=== PATIENT | male | born 1965 | race Caucasian/White ===

== ENCOUNTER 2016-02-18 18:30 | Emergency (ER) | payer BC, OTHER ==
[~2016-02-18] VITALS: Ht 182.9 cm; Wt 105.2 kg
[~2016-02-18 18:30] MED LIST: B-CO1CAP3 PO; OXYC1TAB3 PO; PRT/20 PO
[2016-02-18 18:35] VITALS: Ht 182.9 cm; Wt 105.2 kg
[2016-02-18] MEDS ORDERED: MoRPHine SULFATE 4 MG/ML 1 ML CARP\\VIAL IV STA ×2 (18:59→21:43)
[2016-02-18] MEDS ORDERED: ONDANSETRON INJ 2 MG/ML 2 ML VIAL IV STA (18:59)
[2016-02-18 19:22] LABS: BASO % 0.5 %; BASO ABS # 0.03 K/uL (0-0.2); COMPLETE YES; EOS % 3.9 %; HEMATOCRIT 44.9 % (42-52); IG% 0.3 %; LYMPH % 24.4 %; LYMPH ABS # 1.56 K/uL (1.2-3.4); MEAN CELL VOLUME 86.5 fL (80-100); MEAN CORPUSCULAR HEMOGLOBIN 30.8 pg (25-34); MEAN CORPUSCULAR HGB CONC 35.6 g/dl (32-36); MEAN PLATELET VOLUME 9.7 fL (7.4-10.4); MONO % 10.2 %; NEUT % 60.7 %; PLATELET COUNT 192 K/uL (130-400); RED BLOOD COUNT 5.19 M/uL (4.7-6.1)
[2016-02-18 19:41] LABS: CALCIUM 8.4 mg/dl (8.5-10.1); CREATININE 1.1 mg/dl (0.60-1.40); POTASSIUM 3.9 mmol/L (3.5-5.1)
[2016-02-18] MEDS ORDERED: OPTIRAY 320 IV PRN (21:15)
[2016-02-18 21:57] LABS: URINE APPEARANCE CLOUDY (CLEAR); URINE BILIRUBIN NEG (NEG); URINE COLOR DK YELLOW; URINE NITRITE NEG (NEG); URINE SPECIFIC GRAVITY 1.029 (1.000-1.030); UROBILINOGEN NEG (NEG); ZZUR CULT IF INDIC CLEAN CATCH NO
[2016-02-18 22:00] LABS: MANUAL MICROSCOPIC REQUIRED? NO; REVIEW REQ? YES
--- NOTE | 2016-02-18 22:06 | DIAGNOSTIC IMAGING REPORT ---
CT ABD/PELVIS IV AND ORAL CONT CLINICAL HISTORY: Lower abdominal pain COMPARISON STUDY: 08/03/2015 TECHNIQUE: Following the IV administration of 116 mL of Optiray-320, CT scan of the abdomen and pelvis was performed from the lung bases to the proximal femurs. Images are reviewed in the axial, sagittal, and coronal planes. IV contrast was administered without complication. CT DOSE: 1020.23 mGy.cm FINDINGS: Lower chest: There are bibasal atelectatic changes. There is a small hiatal hernia. Liver: The contrast-enhanced liver is normal in size, contour, and attenuation. There is no intrahepatic biliary ductal dilatation. The hepatic veins and portal veins are patent. Gallbladder: Unremarkable. Spleen: Normal in size and attenuation. Pancreas: Unremarkable. Adrenal glands: Unremarkable. Kidneys: There is symmetric renal cortical enhancement. The kidneys are normal in size without hydronephrosis. Bowel: There are no transition zones indicate bowel obstruction. The appendix appears normal. There is no acute diverticulitis. There is small fat-containing right inguinal hernia. Peritoneum: There is no intraperitoneal free air or abdominal ascites. There are postsurgical changes are prior ventral hernia repair. There is a tiny fat-containing umbilical hernia Vasculature: The abdominal aorta is normal in course and caliber. Adenopathy: None. Pelvic viscera: There is mild prostatic enlargement. Skeletal structures: No destructive osseous lesions are seen. IMPRESSION: 1. No evidence of bowel obstruction. No evidence of free air 2. Normal appendix 3. No evidence of acute diverticulitis 4. Small hiatal hernia 5. Small fat-containing right inguinal hernia 6. Tiny fat-containing umbilical hernia 7. Postsurgical changes are prior ventral hernia repair 8. Mild enlargement of the prostate Electronically signed by: Gomez Brown M.D. 02/18/2016 10:04 PM Dictated Date/Time: 02/18/2016 10:00 PM
[2016-02-18] MEDS ORDERED: OXYCODONE IR HOME PACK PO ONE (22:30)
[2016-02-18 22:51] VITALS: BP 113/94; PULSE 68; TEMP 36.6; O2SAT 96
--- NOTE | 2016-02-18 23:15 | EMERGENCY ROOM VISIT NOTE ---
History Report prepared by Héctor: Toma Davis Under the Supervision of: Dr. Brandon Carrera M.D. First contact with patient: 18:51 Chief Complaint: ABDOMINAL PAIN Stated Complaint: PAIN IN LEFT SIDE OF ABDOMIN Nursing Triage Summary: Pt presents with left sided abd pain. Pt states , "I had surgery for a hernia in May. About two days after the surgery I sneezed and it never went away. I went and saw Dr. Lagunas on and I need to schedule another surgery. I was told I have a hiatel hernia and they think the mesh grew onto my bowel." History of Present Illness The patient is a 50 year old male who presents to the Emergency Room with complaints of worsening left sided abdominal pain that began this past May. He notes that the pain worsened significantly over the past week. He was unable to sleep last night due to his discomfort. His pain is worse with movement and defecation. The pain is sharp. He notes that when he eats even a few bites of food, he feels like he ate "two Thanksgiving dinners." He has been having bowel movements, but not as much as normal. He notes that he urinates frequently, but only small amounts of urine each time. The patient reports that he had hernia surgery this past May by Dr. Paiz. Two days after the surgery, he sneezed and he has been having pain since then. The patient notes that he has a lump to the periumbilical area. He does have an appointment scheduled with a surgeon tomorrow. Denies fevers, vomiting, or other complaints. Source of History: patient Onset: May 2015 Position: abdomen (left) Quality: sharp Timing: worsening Modifying Factors (Worsening): movement, defecation Associated Symptoms: + urinary symptoms (frequency), No SOB, No chest pain, No fevers, No vomiting Review of Systems See HPI for pertinent positives & negatives. A total of 10 systems reviewed and were otherwise negative. Past Medical & Surgical Medical Problems: (1) HTN (hypertension) (2) Sinusitis Surgical Problems: (1) H/O hernia repair Family History Diabetes mellitus Hypertension Social History Smoking Status: Current Some Day Smoker Alcohol Use: occasionally Drug Use: none Marital Status: Housing Status: lives with family Occupation Status: employed Current/Historical Medications Scheduled Aspirin (Aspirin Low Dose), 81 MG PO QAM Atorvastatin (Lipitor), 10 MG PO QAM Lisinopril (Prinivil), 5 MG PO QAM Pantoprazole (Protonix), 20 MG PO QAM Allergies Coded Allergies: No Known Allergies (Verified , `, 02/18/16) Physical Exam Vital Signs Date Time Temp Pulse Resp B/P Pulse Ox O2 Delivery O2 Flow Rate FiO2 02/18/16 22:51 36.6 68 18 113/94 96 02/18/16 22:49 68 18 113/94 96 Room Air 02/18/16 20:52 65 18 127/87 95 Room Air 02/18/16 19:56 74 18 120/80 96 Room Air 02/18/16 18:35 36.6 81 18 139/100 95 Room Air Physical Exam Constitutional: Vital signs reviewed. Eyes: Pupils are equal round reactive to light. Conjunctiva are noninjected. ENT: Pharynx is clear without erythema or exudate. Mucous membranes are moist. Neck supple without meningeal signs. Respiratory: Clear to auscultation bilaterally. Breath sounds are equal bilaterally. Cardiovascular: Regular rate and rhythm. No rubs or gallops. GI: Soft, nondistended. Epigastric and left periumbilical tenderness. Umbilical hernia without significant tenderness. Bowel sounds are present. Musculoskeletal: No peripheral edema. No CVA tenderness. Integumentary: No cyanosis. Neurological: The patient is awake and alert. No focal deficits. Psychiatric: Normal affect. Medical Decision & Procedures ER Provider Diagnostic Interpretation: CT results as stated below per my review and radiologist interpretation. CT ABD/PELVIS IV AND ORAL CONT CLINICAL HISTORY: Lower abdominal pain COMPARISON STUDY: 08/03/2015 TECHNIQUE: Following the IV administration of 116 mL of Optiray-320, CT scan of the abdomen and pelvis was performed from the lung bases to the proximal femurs. Images are reviewed in the axial, sagittal, and coronal planes. IV contrast was administered without complication. CT DOSE: 1020.23 mGy.cm FINDINGS: Lower chest: There are bibasal atelectatic changes. There is a small hiatal hernia. Liver: The contrast-enhanced liver is normal in size, contour, and attenuation. There is no intrahepatic biliary ductal dilatation. The hepatic veins and portal veins are patent. Gallbladder: Unremarkable. Spleen: Normal in size and attenuation. Pancreas: Unremarkable. Adrenal glands: Unremarkable. Kidneys: There is symmetric renal cortical enhancement. The kidneys are normal in size without hydronephrosis. Bowel: There are no transition zones indicate bowel obstruction. The appendix appears normal. There is no acute diverticulitis. There is small fat-containing right inguinal hernia. Peritoneum: There is no intraperitoneal free air or abdominal ascites. There are postsurgical changes are prior ventral hernia repair. There is a tiny fat-containing umbilical hernia Vasculature: The abdominal aorta is normal in course and caliber. Adenopathy: None. Pelvic viscera: There is mild prostatic enlargement. Skeletal structures: No destructive osseous lesions are seen. IMPRESSION: 1. No evidence of bowel obstruction. No evidence of free air 2. Normal appendix 3. No evidence of acute diverticulitis 4. Small hiatal hernia 5. Small fat-containing right inguinal hernia 6. Tiny fat-containing umbilical hernia 7. Postsurgical changes are prior ventral hernia repair 8. Mild enlargement of the prostate Electronically signed by: Gomez Brown M.D. 02/18/2016 10:04 PM Dictated Date/Time: 02/18/2016 10:00 PM Laboratory Results 02/18/16 19:10 Red Blood Count 5.19, Mean Corpuscular Volume 86.5, Mean Corpuscular Hemoglobin 30.8, Mean Corpuscular Hemoglobin Concent 35.6, Mean Platelet Volume 9.7, Neutrophils (%) (Auto) 60.7, Lymphocytes (%) (Auto) 24.4, Monocytes (%) (Auto) 10.2, Eosinophils (%) (Auto) 3.9, Basophils (%) (Auto) 0.5, Neutrophils # (Auto ) 3.89, Lymphocytes # (Auto) 1.56, Monocytes # (Auto) 0.65, Eosinophils # (Auto ) 0.25, Basophils # (Auto) 0.03 02/18/16 19:10 Test 02/18/16 00:00 02/18/16 19:10 Urine Color DK YELLOW Urine Appearance CLOUDY (CLEAR) Urine pH 5.0 (4.5-7.5) Urine Specific [place] 1.029 (1.000-1.030) Urine Protein NEG (NEG) Urine Glucose (UA) NEG (NEG) Urine Ketones TRACE (NEG) Urine Occult Blood NEG (NEG) Urine Nitrite NEG (NEG) Urine Bilirubin NEG (NEG) Urine Urobilinogen NEG (NEG) Urine Leukocyte Esterase NEG (NEG) Urine WBC (Auto) 1-5 /hpf (0-5) Urine RBC (Auto) 0-4 /hpf (0-4) Urine Hyaline Casts (Auto) 1-5 /lpf (0-5) Urine Epithelial Cells (Auto) 5-10 /lpf (0-5) Urine Bacteria (Auto) NEG (NEG) Urine Crystals CALCIUM OXALATE (NONE White Blood Count 6.40 K/uL (4.8-10.8) Red Blood Count 5.19 M/uL (4.7-6.1) Hemoglobin 16.0 g/dL (14.0-18.0) Hematocrit 44.9 % (42-52) Mean Corpuscular Volume 86.5 fL (80-100) Mean Corpuscular Hemoglobin 30.8 pg (25-34) Mean Corpuscular Hemoglobin Concent 35.6 g/dl (32-36) Platelet Count 192 K/uL (130-400) Mean Platelet Volume 9.7 fL (7.4-10.4) Neutrophils (%) (Auto) 60.7 % Lymphocytes (%) (Auto) 24.4 % Monocytes (%) (Auto) 10.2 % Eosinophils (%) (Auto) 3.9 % Basophils (%) (Auto) 0.5 % Neutrophils # (Auto) 3.89 K/uL (1.4-6.5) Lymphocytes # (Auto) 1.56 K/uL (1.2-3.4) Monocytes # (Auto) 0.65 K/uL (0.11-0.59) Eosinophils # (Auto) 0.25 K/uL (0-0.5) Basophils # (Auto) 0.03 K/uL (0-0.2) RDW Standard Deviation 41.3 fL (36.4-46.3) RDW Coefficient of Variation 13.0 % (11.5-14.5) Immature Granulocyte % (Auto) 0.3 % Immature Granulocyte # (Auto) 0.02 K/uL (0.00-0.02) Anion Gap 9.0 mmol/L (3-11) Est Creatinine Clear Calc Drug Dose 100.7 ml/min Estimated GFR () 90.2 Estimated GFR (Non- 77.9 BUN/Creatinine Ratio 16.0 (10-20) Calcium Level 8.4 mg/dl (8.5-10.1) Total Bilirubin 0.3 mg/dl (0.2-1) Aspartate Amino Transf (AST/SGOT) 22 U/L (15-37) Alanine Aminotransferase (ALT/SGPT) 43 U/L (12-78) Alkaline Phosphatase 126 U/L (45-117) Total Protein 7.3 gm/dl (6.4-8.2) Albumin 3.7 gm/dl (3.4-5.0) Globulin 3.6 gm/dl (2.5-4.0) Albumin/Globulin Ratio 1.0 (0.9-2) Lipase 110 U/L (73-393) Laboratory results as reviewed by me. Medications Administered Medications (Trade) Dose Ordered Sig/Je Route Start Time Stop Time Status Last Admin Dose Admin Morphine Sulfate (MoRPHine SULFATE INJ) 4 mg ONE STAT IV 02/18/16 18:59 02/18/16 19:01 DC 02/18/16 19:35 4 MG Ondansetron HCl (Zofran Inj) 4 mg NOW STAT IV 02/18/16 18:59 02/18/16 19:01 DC 02/18/16 19:36 4 MG Morphine Sulfate (MoRPHine SULFATE INJ) 4 mg NOW STAT IV 02/18/16 21:43 02/18/16 21:44 DC 02/18/16 22:09 4 MG Oxycodone HCl (Roxicodone Immediate Rel 5MG Home Pack) 1 homepack UD ONCE PO 02/18/16 22:30 02/18/16 22:31 DC 02/18/16 22:34 1 HOMEPACK ECG Indication: abdominal pain Rate (beats per minute): 71 Rhythm: normal sinus Findings: Q waves (Inferior), no ectopy Comparison ECG Date: August 2015 Change: no significant change ED Course 1852: The patient was evaluated in room B3. A complete history and physical exam was performed. 1858: Ordered Zofran Inj 4 mg IV, Morphine Sulfate 4 mg IV. 2109: I reassessed the patient and discussed test results with him. We are waiting on the CT scan results. 2139: I reassessed the patient. He was complaining of more pain. 2142: Ordered Morphine Sulfate 4 mg IV. 2218: I reassessed the patient. He was feeling better. I talked to him about test results. He will follow up with the surgeon tomorrow. The patient will be discharged home. 2229: Ordered Oxycodone HCl 1 homepack PO. Medical Decision This is a 50-year-old male who presents with left-sided abdominal pain. Differential diagnosis includes diverticulitis, kidney stone, irritable bowel syndrome, hernia, UTI I did perform a limited focused review of portions of the patient's old chart on the electronic medical record. The patient has had no recent pertinent visits to this hospital. I did evaluate the patient as noted above. IV access was established. The patient was placed on a continuous manager risk. I did order and personally review the patient's urinalysis as described above. I did order and review the patient's blood work as noted in the electronic medical record. His white blood cell count is not elevated. LFTs are unremarkable. I did order a CT of the abdomen and pelvis. I did review the images myself as well as the radiology report as described above. There is no evidence of acute intra- abdominal process. I did treat patient with IV morphine and Zofran. I did discuss the test results with the patient. He is feeling better at this time. He does have an appointment tomorrow to see the surgeon. He was therefore discharged with a OxyIR home pack and given precautions regarding this medication. Impression Primary Impression: Left sided abdominal pain Additional Impression: Umbilical hernia Scribe Attestation The scribe's documentation has been prepared under my direct and personally reviewed by me in its entirety. I confirm that the note above accurately reflects all work, treatment, procedures, and medical decision making performed by me. Departure Information Dispostion Home / Self-Care Referrals Rashid Baxter M.D. (PCP) Patient Instructions A Signature Page, ED Abd Pain Unkn Cause Male Additional Instructions You have been examined and treated today on an emergency basis only. This is not a substitute for, or an effort to provide, complete comprehensive medical care. It is impossible to recognize and treat all injuries or illnesses in a single emergency department visit. It is therefore important that you follow up closely with your surgeon tomorrow. Return for worsening symptoms or if you develop fever, vomiting, or any other concerning symptoms.
[2016-07-17] MEDS ORDERED: ASPI1TAB48 PO (05:34)
[2016-07-17] MEDS ORDERED: ATOR10TA88 PO (14:34)
[2016-07-17] MEDS ORDERED: LISI5TAB PO (17:33)
== END 2016-02-18 22:51 | disposition home or self-care (01) ==
LOC: C.EDB 18:34
DX: K42.9 Umbilical hernia without obstruction or gangrene (principal); I10 Essential (primary) hypertension; F17.200 Nicotine dependence, unspecified, uncomplicated; Z86.19 Personal history of other infectious and parasitic diseases; Z98.890 Other specified postprocedural states; Z79.82 Long term (current) use of aspirin; Z79.899 Other long term (current) drug therapy; Z83.3 Family history of diabetes mellitus; Z82.49 Family history of ischemic heart disease and other diseases of the circulatory system

== ENCOUNTER 2016-02-22 11:40 | Observation (INO) | payer OTHER ==
[2016-02-19 16:05] VITALS: BMI 31.0
[2016-02-22] VITALS (7 sets, daily range): BP systolic 112–134; BP diastolic 75–89; PULSE 74–89; TEMP 36.2–36.6; O2SAT 93–97; Ht 182.9 cm; Wt 104.5 kg
[~2016-02-22] VITALS: Ht 182.9 cm; Wt 104.5 kg
[~2016-02-22 11:40] MED LIST changes: -B-CO1CAP3 PO; +CEFAZOLIN 2000 MG/60 ML D5W IV SCH; +HEPARIN SOD 5000 UNIT/0.5 ML CARP SQ SCH; +LACTATED RINGER'S 1000ML 1,000 ML IV SCH; -OXYC1TAB3 PO
[2016-02-22] MEDS ORDERED: FENTANYL CITRATE INJ 50 MCG/1 ML 2 ML VIAL ONE ×3 (13:48→15:29)
[2016-02-22] MEDS ORDERED: MIDAZOLAM HCL 1 MG/ML 2ML VIAL ONE (13:49)
--- NOTE | 2016-02-22 14:16 | History & Physical Bridge Note ---
H&P Re-Evaluation Bridge Note: I have examined the patient, reviewed the History & Physical and in the interval since the performance of the History & Physical I have noted the following changes of clinical significance: No changes noted
[2016-02-22] MEDS ORDERED: PROPOFOL IV EMULSION 10 MG/ML 20 ML VIAL IV ONE (15:08)
[2016-02-22] MEDS ORDERED: ROCURONIUM BROMIDE 10 MG/ML 5 ML VIAL ONE ×2 (15:09→15:46)
[2016-02-22] MEDS ORDERED: NEOSTIGMINE METHYLSULFATE 5 MG/5 ML SYR ONE (15:09)
[2016-02-22] MEDS ORDERED: LIDOCAINE HCL 2% 2 ML VIAL (20MG/ML) ONE (15:09)
[2016-02-22] MEDS ORDERED: GLYCOPYRROLATE INJ 0.2 MG/ML VIAL ONE (15:09)
[2016-02-22] MEDS ORDERED: KETOROLAC TROMETHAMINE 30 MG/ML VIAL IV. PRN (15:15)
[2016-02-22] MEDS ORDERED: ONDANSETRON INJ 2 MG/ML 2 ML VIAL IV PRN ×3 (15:15→17:15)
[2016-02-22] MEDS ORDERED: ATROPINE SULFATE 0.1 MG/ML 5ML SYR IV PRN (15:15)
[2016-02-22] MEDS ORDERED: LABETALOL HCL IV 5 MG/ML 20ML IV PRN (15:15)
[2016-02-22] MEDS ORDERED: DEXAMETHASONE SOD INJ 4 MG/ML VIAL ONE (15:31)
[2016-02-22] MEDS ORDERED: ONDANSETRON INJ 2 MG/ML 2 ML VIAL ONE (15:31)
[2016-02-22] MEDS ORDERED: HYDROmorphone INJ 2 MG/ML SYR/VIAL ONE (15:35)
[2016-02-22] MEDS ORDERED: BUPIVACAINE/EPINEPHRINE 0.5% MPF 1:200,000 30 ML VIAL INJ ONE (16:05)
--- NOTE | 2016-02-22 16:19 | [facility] Operative Report ---
Operative Report Operative Date Feb 22, 2016. Pre-Operative Diagnosis Abdominal pain, adhesions,hiatal hernia and umbilical granuloma Post-Operative Diagnosis adhesions. hiatal hernia. umbilical abcess Procedure(s) Performed diagnostic laparoscopy. enterolysis. repair of hiatal hernia. gastropexy. drainage soft tissue abcess. Surgeon Dr. Angie Lagunas [employer] Surgeon(s) José Miguel Blancas PA-C Estimated Blood Loss 20ml Findings adhesion to undersurface of umbilical mesh. moderate hiatal hernia. soft tissue abcess at umbilicus Specimens #1. culture and sensitivity, with gram stain, of abdominal wall fluid (sent routine) Anesthesia GET Complication(s) None Disposition Recovery Room / PACU I attest to the content of the Intraoperative Record and any orders documented therein. Any exceptions are noted below.
[2016-02-22] MEDS ORDERED: LACTATED RINGER'S 1000ML 1,000 ML IV SCH (16:20)
[2016-02-22] MEDS ORDERED: AMOX875T PO (16:22)
[2016-02-22] MEDS ORDERED: OXYC-57 PO (16:22)
--- NOTE | 2016-02-22 16:27 | Discharge Instructions ---
Discharge Instructions Visit Reason for Visit: Abdominal Pain, Hiatal Hernia Discharge Discharge Diagnosis / Problem: Repair of hernia, lysis of adhesions Discharge Goals Goal(s): Decrease discomfort Activity Recommendations Activity Limitations: per Instructions/Follow-up section Lifting Limitations: no more than 10 pounds Shower/Bathe: tomorrow Driving or Machine Use: resume 3 days after discharge Anesthesia . Post Anesthesia Instructions: If you have had General Anesthesia or IV Sedation: * Do not drive today. * Resume driving when surgeon permits. * Do not make important decisions or sign legal documents today. * Call surgeon for: 1. Temperature elevations greater than 101 degrees F. 2. Uncontrollable pain. 3. Excessive bleeding. 4. Persistent nausea and vomiting. 5. Medication intolerance (nausea, vomiting or rash). * For nausea and vomiting use only clear liquids such as: tea, soda, bouillon until nausea subsides, then gradually increase diet as tolerated. * If you have any concerns or questions, call your surgeon's office. If physician is unavailable and it is an emergency, call 911 or go to the nearest emergency room. . Instructions / Follow-Up Instructions / Follow-Up Call to schedule appointment in [address] Lagunas, [phone] Diet Recommendations Recommended Home Diet: special diet Additional Diet Information: soft diet as discussed Procedures Procedures Performed: Diagnostic Laparoscopy, Entrolysis, Laparoscopic Repair Hiatal Hernia, drainage of abscess cavity and gastropexy. Pending Studies Studies pending at discharge: no Medical Emergencies . Who to Call and When: Medical Emergencies: If at any time you feel your situation is an emergency, please call 911 immediately. . Non-Emergent Contact Non-Emergency issues call your: Surgeon Call Non-Emergent contact if: you have a fever, temperature is above 101.5, your pain is not controlled, wound has increased drainage, wound has increased redness, wound has increased pain . . "Provider Documentation" section prepared by Norman Blancas.
[2016-02-22] MEDS ORDERED: OXYCODONE/ACETAMINOPHEN 5-325 TAB PO PRN (16:30)
[2016-02-22] MEDS ORDERED: MoRPHine SULFATE 2 MG/ML CARP IV PRN (16:30)
[2016-02-22] MEDS: FENTANYL CITRATE INJ 50 MCG/1 ML 2 ML VIAL IV PRN ×8 (16:40→17:15)
[2016-02-22] MEDS ORDERED: IBUPROFEN 600 MG TAB PO PRN (17:15)
[2016-02-22] MEDS ORDERED: HYDROmorphone INJ 1 MG/ML SYR IV PRN (17:15)
[2016-02-22] MEDS ORDERED: HYDROmorphone INJ 2 MG/ML SYR/VIAL IV PRN (17:15)
[2016-02-22] MEDS ORDERED: HYDROmorphone INJ 0.5 MG/0.5 ML SYR IV PRN (17:15)
[2016-02-22] MEDS ORDERED: HYDROCODONE/ACETAMOPHEN 5/325MG TAB PO PRN ×2 (17:15)
--- NOTE | 2016-02-22 17:27 | Anesthesiology Progress Note ---
Anesthesia Post Op Note Date & Time Feb 22, 2016 at 17:26 Vital Signs Pain Intensity: 8 Vital Signs Past 12 Hours Date Time Temp Pulse Resp B/P Pulse Ox O2 Delivery O2 Flow Rate FiO2 02/22/16 17:10 86 12 103/73 96 Mask 4 02/22/16 17:00 80 10 117/64 96 Mask 4 02/22/16 16:50 81 10 103/74 99 Mask 10 02/22/16 16:40 80 12 109/77 98 Mask 10 02/22/16 16:30 89 12 115/74 98 Mask 10 02/22/16 16:20 36.3 92 12 125/74 97 Mask 10 02/22/16 12:12 36.6 77 18 120/75 97 Room Air Notes Mental Status: alert / awake / arousable, participated in evaluation Pt Amnestic to Procedure: Yes Nausea / Vomiting: adequately controlled Pain: adequately controlled Airway Patency, RR, SpO2: stable & adequate BP & HR: stable & adequate Hydration State: stable & adequate Anesthetic Complications: no major complications apparent
[2016-02-22] MEDS: LACTATED RINGER'S 1000ML 1,000 ML IV SCH (18:27)
[2016-02-22] MEDS: CEFAZOLIN IV 1,000 MG in DEXTROSE 5% 50ML 50 ML IV SCH (22:07)
[2016-02-23] MEDS: LACTATED RINGER'S 1000ML 1,000 ML IV SCH ×3 (01:44→17:08)
[2016-02-23] MEDS: KETOROLAC TROMETHAMINE 15 MG/ML VIAL IV PRN ×2 (01:44→07:56)
--- NOTE | 2016-02-23 02:47 | OPERATIVE REPORT ---
DATE OF OPERATION: 02/22/2016 PREOPERATIVE DIAGNOSES: Abdominal pain, symptomatic umbilical granuloma and symptomatic hiatal hernia. POSTOPERATIVE DIAGNOSES: 1. Adhesions to the undersurface of his prior mesh. 2. Moderate sized hiatal hernia with gastric incarceration. 3. Soft tissue abscess at the umbilicus, suspect sterile abscess. PROCEDURES: Diagnostic laparoscopy, enterolysis, repair of hiatal hernia, posterior gastropexy, drainage of abdominal soft tissue abscess cavity. SURGEON: Ulysses Lagunas DO PIECE HAND: Norman Blancas PA-C ESTIMATED BLOOD LOSS: 30 mL. COMPLICATIONS: No immediate. ANESTHESIA: General. The patient tolerated procedure well. OPERATIVE NOTE: After informed consent was obtained, the patient was taken to the operating suite and placed in supine position. After successful intubation, the abdomen was shaved and sterilely prepped and draped in usual fashion. An upper midline abdominal incision was made with an 11 blade scalpel and carried down through the soft tissue using electrocautery. The anterior rectus fascia was opened using electrocautery and two #0 Vicryl stay sutures were placed. Peritoneum was entered using blunt finger penetration. A finger sweep was performed. A 12 mm Johnson trocar was placed and the abdomen was insufflated to 20 mmHg. Laparoscope was inserted. We looked down at the area of his pain near his umbilicus. We noted a fair amount of the adhesions involving omentum and small bowel to the undersurface of the mesh. We placed a left upper quadrant 5 mm trocar, an epigastric 12 mm trocar, a right upper quadrant 5 mm trocar and a right flank 12 mm trocar. We were able to use a Harmonic scalpel to take the adhesions down from the undersurface of the mesh using traction, counter traction and Harmonic scalpel. Once we had all the adhesions down, we looked around the lower abdomen. We saw no other source of his pain in that area. Our focused then turned to his known hiatal hernia. We placed him in reverse Trendelenburg position. We used a fan liver retractor to help expose the undersurface of the diaphragm. Once we did this, we were able to manually reduce the stomach using graspers. I began along the lesser curvature. I took down the gastrohepatic ligament and using a Harmonic scalpel divided the pars flaccida and then followed the right caitlin up onto the anterior surface of the diaphragm. I continued this around anteriorly and down over onto the left caitlin of the diaphragm. Once we took down this peritoneal sac the stomach then was able to stay reduced into the abdominal cavity without any tension. We were able to clearly identify the right and left crura as well as the esophagus. Once we had this all delineated and the hernia sac down, we then used an EndoStitch device with 0 silk to close the defect in a simple interrupted fashion. Once we had this completely closed, we did insert a grasper between the stomach and esophagus to ensure that our repair was not too tight. After doing this, I then also used an 0 silk with an EndoStitch to pex the medial side of the stomach to the right caitlin of the diaphragm. In case the crural stitch became undone or broken this would help prevent re-incarceration of the stomach. At the end of this part of the procedure, there was adequate hemostasis. No other abnormalities were identified. We looked around the abdomen, removed all the trocars. Next, we opened what we thought was a suture granuloma at his umbilicus near his old hernia repair. As soon as we opened the skin, we probably got 10-15 mL of pure white purulent fluid. It did not have a foul odor. The skin was not erythematous and did not have an inflammatory response; therefore I suspected the sterile abscess. We used electrocautery to remove the abscess cavity itself. We then thoroughly irrigated the wound. Prior to irrigating, we did send some for culture and Gram stain. We then closed this with 3-0 Vicryl and 4-0 Monocryl. The fascia of the camera port was closed using 0 Vicryl in a [id number] fashion. All the other incisions were irrigated and closed using 4-0 Monocryl. Marcaine was injected around them for postoperative analgesia and skin glue used as dressings. The patient was awakened, extubated and transferred to recovery in stable condition. I attest to the content of the Intraoperative Record and any orders documented therein. Any exceptions are noted below. [place]
[2016-02-23 04:00] VITALS: BP 131/89; PULSE 82; TEMP 36.5; O2SAT 95
[2016-02-23] MEDS: CEFAZOLIN IV 1,000 MG in DEXTROSE 5% 50ML 50 ML IV SCH ×2 (05:25→13:19)
[2016-02-23 05:40] LABS: MEAN CELL VOLUME 85.5 fL (80-100); MEAN CORPUSCULAR HEMOGLOBIN 29.7 pg (25-34); MEAN CORPUSCULAR HGB CONC 34.8 g/dl (32-36); MEAN PLATELET VOLUME 9.4 fL (7.4-10.4); PLATELET COUNT 200 K/uL (130-400); RED BLOOD COUNT 4.91 M/uL (4.7-6.1); WHITE BLOOD COUNT 8.84 K/uL (4.8-10.8)
[2016-02-23 05:51] LABS: PROTHROMBIN TIME (PATIENT) 10.7 SECONDS (9.0-12.0)
[2016-02-23 06:05] LABS: CREATININE 1.2 mg/dl (0.60-1.40)
[2016-02-23 07:09] VITALS: BP 137/91; PULSE 77; TEMP 36.6; O2SAT 96
[2016-02-23] MEDS ORDERED: ENOXAPARIN 40 MG/0.4 ML SYR SQ SCH (09:00)
--- NOTE | 2016-02-23 10:40 | Surgery Progress Note ---
Surgery Progress Note Date of Service Feb 23, 2016. Subjective Post OP Day: 1 still with mid abdominal pain requiring IV analgesics, tolerating diet Objective Vital Signs: Date Time Temp Pulse Resp B/P Pulse Ox O2 Delivery O2 Flow Rate FiO2 02/23/16 08:22 Room Air 02/23/16 07:09 36.6 77 16 137/91 96 Room Air 02/23/16 04:00 36.5 82 16 131/89 95 Room Air 02/22/16 23:21 Room Air 02/22/16 22:55 36.5 84 18 125/81 93 Room Air 02/22/16 20:50 36.4 89 16 134/89 94 Room Air 02/22/16 19:50 36.4 75 16 126/85 96 Nasal Cannula 2.0 02/22/16 18:49 77 112/77 02/22/16 18:21 77 18 124/81 97 Room Air 02/22/16 17:50 94 Nasal Cannula 2.0 02/22/16 17:50 36.2 74 17 119/80 94 Nasal Cannula 2.0 02/22/16 17:50 94 Nasal Cannula 2.0 02/22/16 17:30 82 16 120/74 97 Mask 4 02/22/16 17:20 74 12 101/62 97 Mask 4 02/22/16 17:10 86 12 103/73 96 Mask 4 02/22/16 17:00 80 10 117/64 96 Mask 4 02/22/16 16:50 81 10 103/74 99 Mask 10 02/22/16 16:40 80 12 109/77 98 Mask 10 02/22/16 16:30 89 12 115/74 98 Mask 10 02/22/16 16:20 36.3 92 12 125/74 97 Mask 10 02/22/16 12:12 36.6 77 18 120/75 97 Room Air Abdomen: non distended, soft Incision(s): clean, dry Laboratory Results: Results Past 24 Hours Test 02/23/16 05:09 Range/Units White Blood Count 8.84 4.8-10.8 K/uL Red Blood Count 4.91 4.7-6.1 M/uL Hemoglobin 14.6 14.0-18.0 g/dL Hematocrit 42.0 42-52 % Mean Corpuscular Volume 85.5 80-100 fL Mean Corpuscular Hemoglobin 29.7 25-34 pg Mean Corpuscular Hemoglobin Concent 34.8 32-36 g/dl RDW Standard Deviation 40.0 36.4-46.3 fL RDW Coefficient of Variation 12.8 11.5-14.5 % Platelet Count 200 130-400 K/uL Mean Platelet Volume 9.4 7.4-10.4 fL Prothrombin Time 10.7 9.0-12.0 SECONDS Prothromb Time International Ratio 1.0 0.9-1.1 Activated Partial Thromboplast Time 26.4 21.0-31.0 SECONDS Partial Thromboplastin Ratio 1.0 Creatinine 1.20 0.60-1.40 mg/dl Est Creatinine Clear Calc Drug Dose 92.1 ml/min Estimated GFR () 81.2 Estimated GFR (Non- 70.1 Microbiology Results 02/22/16 Gram Stain - Final, Resulted 02/22/16 Bacterial Culture, Resulted Pending Assessment & Plan s/p laparoscopic hiatal hernia repair, lysis of adhesions transition to po analgesics as hakeem ambulate may need to stay overnight as above..pt's pain controlled at moment hakeem diet ok for d/c. instructions given
[2016-02-23 14:09] VITALS: BP 137/91; PULSE 77; TEMP 36.6; O2SAT 96
[2016-02-23 14:57] VITALS: BP 144/93; PULSE 77; TEMP 36.9; O2SAT 96
--- NOTE | 2016-02-24 10:58 | Anesthesiology Progress Note ---
Anesthesia Post Op Note Date & Time Feb 24, 2016 at 10:57 Vital Signs Pain Intensity: 4.0 Notes Mental Status: alert / awake / arousable, participated in evaluation Pt Amnestic to Procedure: Yes Nausea / Vomiting: adequately controlled Pain: adequately controlled Airway Patency, RR, SpO2: stable & adequate BP & HR: stable & adequate Hydration State: stable & adequate Anesthetic Complications: no major complications apparent
--- NOTE | 2016-02-25 15:09 | DISCHARGE SUMMARY ---
PRIMARY DISCHARGE DIAGNOSES: 1. Hiatal hernia. 2. Abdominal adhesions to previous mesh. 3. Sterile umbilical abscess. SECONDARY DISCHARGE DIAGNOSES: 1. Hypertension. 2. High cholesterol. PROCEDURE PERFORMED: Diagnostic laparoscopy with enterolysis, repair of hiatal hernia and gastropexy and drainage of umbilical granuloma/abscess. HOSPITAL COURSE: The patient is a 50-year-old male with abdominal pain, previous ventral hernia repair and hiatal hernia, admitted through same day for diagnostic laparoscopy. He did have some adhesions to the previously placed mesh which were taken down. We also repaired hiatal hernia with laparoscopic sutures and performed gastropexy. He had a small area at the umbilicus that appeared as a granuloma, but when opened drained some thick white fluid. Cultures taken of this fluid has showed no growth. He continued to require IV analgesics in same day surgery and was therefore admitted for overnight observation and continued IV therapy. By postoperative day 1, he was able to tolerate diet and oral analgesics. His blood pressure remained stable. His incisions were dry. He was stable for discharge. DISCHARGE INSTRUCTIONS: Discharge home. Follow up with Dr. Lagunas in 2 weeks. DISCHARGE MEDICATIONS: Augmentin 875 mg p.o. b.i.d. x7 which was prescribed before the final cultures were returned. Percocet 1-2 tablets every 4 hours as needed. Resume home medications Aspirin 81 mg daily, Lipitor 10 mg daily, Prinivil 5 mg daily, Protonix 20 mg daily. MTDD
[2016-07-17] MEDS ORDERED: ASPI1TAB48 PO (05:34)
[2016-07-17] MEDS ORDERED: ATOR10TA88 PO (14:34)
[2016-07-17] MEDS ORDERED: LISI5TAB PO (17:33)
== END 2016-02-23 17:30 | disposition home or self-care (01) ==
LOC: ENRESERVDT → ENRESERVTM → C.ACU 11:40 → C.MSN 17:12
PROVIDERS: ADMIT Surgery; ATTEND Surgery
DX: K44.9 Diaphragmatic hernia without obstruction or gangrene (principal); J84.10 Pulmonary fibrosis, unspecified; R10.9 Unspecified abdominal pain; L92.9 Granulomatous disorder of the skin and subcutaneous tissue, unspecified; K66.0 Peritoneal adhesions (postprocedural) (postinfection); I10 Essential (primary) hypertension; E78.00 Pure hypercholesterolemia, unspecified

== ENCOUNTER → 2016-03-24 | Outpatient (CLI) | payer OTHER ==
[~2016-03-24] MED LIST changes: +ASPI1TAB48 PO; +ATOR10TA88 PO; -CEFAZOLIN 2000 MG/60 ML D5W IV SCH; +CEPH500C2 PO; +CHOL1000 PO; -HEPARIN SOD 5000 UNIT/0.5 ML CARP SQ SCH; -LACTATED RINGER'S 1000ML 1,000 ML IV SCH; +LISI5TAB PO; +LSN10 PO; +MULT-506 PO; +OXYC-57 PO; +SULF800T23 PO
[2016-03-24 18:16] LABS: BASO % 0.3 %; BASO ABS # 0.02 K/uL (0-0.2); COMPLETE YES; EOS % 1.7 %; HEMATOCRIT 45.4 % (42-52); IG% 0.1 %; LYMPH % 20.5 %; LYMPH ABS # 1.57 K/uL (1.2-3.4); MEAN CELL VOLUME 86.5 fL (80-100); MEAN CORPUSCULAR HEMOGLOBIN 30.3 pg (25-34); MEAN PLATELET VOLUME 10.2 fL (7.4-10.4); MONO % 8.5 %; NEUT % 68.9 %; PLATELET COUNT 245 K/uL (130-400); RED BLOOD COUNT 5.25 M/uL (4.7-6.1); WHITE BLOOD COUNT 7.66 K/uL (4.8-10.8)
[2016-03-24 19:04] LABS: ALT/SGPT 44 U/L (12-78); BLOOD UREA NITROGEN 17 mg/dl (7-18); BUN/CREATININE RATIO 15.4 (10-20); CALCIUM 9.1 mg/dl (8.5-10.1); CARBON DIOXIDE 21 mmol/L (21-32); CHLORIDE 109 mmol/L (98-107); CHOLESTEROL 154 mg/dl (0-200); GLUCOSE 78 mg/dl (70-99); POTASSIUM 4.2 mmol/L (3.5-5.1); SODIUM 141 mmol/L (136-145); TRIGLYCERIDES 181 mg/dl (0-150); VERY LOW DENSITY LIPOPROT CALC 36 mg/dl
[2016-03-24 19:14] LABS: ALB/GLOB RATIO 1.1 (0.9-2); ALKALINE PHOSPHATASE 137 U/L (45-117); AST/SGOT 27 U/L (15-37); CHOLESTEROL/HDL RATIO 4.1; HDL CHOLESTEROL 38 mg/dl; LDL CHOLESTEROL CALCULATED 80 mg/dl
== END | disposition home or self-care (01) ==
LOC: C.LABPVFM 15:04
PROVIDERS: ATTEND Family Medicine
DX: F52.0 Hypoactive sexual desire disorder (principal); R53.83 Other fatigue; E78.5 Hyperlipidemia, unspecified; Z12.5 Encounter for screening for malignant neoplasm of prostate

== ENCOUNTER 2016-03-29 00:49 | Emergency (ER) | payer OTHER ==
[~2016-03-29] VITALS: Ht 182.9 cm; Wt 104.3 kg
[~2016-03-29 00:49] MED LIST changes: -ASPI1TAB48 PO; -ATOR10TA88 PO; -CEPH500C2 PO; -CHOL1000 PO; -LISI5TAB PO; -LSN10 PO; -MULT-506 PO; -SULF800T23 PO
[2016-03-29 01:00] VITALS: TEMP 36.7; Ht 182.9 cm; Wt 104.3 kg
[2016-03-29] MEDS ORDERED: ONDANSETRON INJ 2 MG/ML 2 ML VIAL IV STA (01:22)
[2016-03-29] MEDS ORDERED: MoRPHine SULFATE 10 MG/ML CARP/VIAL IV STA (01:22)
[2016-03-29] MEDS ORDERED: SODIUM CHLORIDE 0.9% 1000ML 1,000 ML IV ONE (01:30)
[2016-03-29 02:11] LABS: BASO % 0.3 %; BASO ABS # 0.02 K/uL (0-0.2); COMPLETE YES; EOS % 2.9 %; HEMATOCRIT 42.9 % (42-52); IG% 0.3 %; LYMPH % 30.7 %; LYMPH ABS # 1.83 K/uL (1.2-3.4); MEAN CELL VOLUME 86.5 fL (80-100); MEAN CORPUSCULAR HEMOGLOBIN 30.6 pg (25-34); MEAN CORPUSCULAR HGB CONC 35.4 g/dl (32-36); MEAN PLATELET VOLUME 9.5 fL (7.4-10.4); MONO % 9.1 %; NEUT % 56.7 %; PLATELET COUNT 191 K/uL (130-400); RED BLOOD COUNT 4.96 M/uL (4.7-6.1); WHITE BLOOD COUNT 5.96 K/uL (4.8-10.8)
[2016-03-29 02:30] LABS: BUN/CREATININE RATIO 12.4 (10-20); CALCIUM 8.7 mg/dl (8.5-10.1); CREATININE 1.2 mg/dl (0.60-1.40); POTASSIUM 3.6 mmol/L (3.5-5.1)
[2016-03-29 02:32] LABS: ALB/GLOB RATIO 1.1 (0.9-2)
[2016-03-29 03:24] LABS: URINE APPEARANCE CLEAR (CLEAR); URINE BILIRUBIN NEG (NEG); URINE COLOR YELLOW; URINE NITRITE NEG (NEG); URINE SPECIFIC GRAVITY 1.024 (1.000-1.030); UROBILINOGEN NEG (NEG); ZZUR CULT IF INDIC CLEAN CATCH NO
[2016-03-29 03:32] LABS: MANUAL MICROSCOPIC REQUIRED? NO; REVIEW REQ? NO
[2016-03-29 05:12] VITALS: BP 128/90; PULSE 65; O2SAT 97
--- NOTE | 2016-03-29 07:42 | DIAGNOSTIC IMAGING REPORT ---
ABDOMEN AND PELVIS CT WITHOUT CONTRAST CT DOSE: 892.35 mGy.cm HISTORY: Pain Left side abdominal pain TECHNIQUE: Multiaxial CT images of the abdomen and pelvis were performed without contrast. COMPARISON STUDY: 02/18/2016 FINDINGS: Lung bases are clear. Liver spleen and pancreas are unremarkable. Pancreas is remarkable for fatty infiltration. Kidneys negative for hydronephrosis. The adrenal glands are unremarkable. Interval right parasagittal surgical alignment. Normal appendix. Nonobstructive bowel pattern. Minimal nonobstructive ileus. Scattered colonic diverticulosis. No evidence for acute diverticulitis. Slightly progressive left perinephric infiltrative change. No evidence for an obstructing urinary tract calculus. IMPRESSION: 1. Minimal nonobstructive ileus. 2. Slightly progressive left renal perinephric change raising the possibility of a mild nonspecific pyelonephritis. 3. Scattered colonic diverticulosis with no well-defined evidence for diverticulitis. Electronically signed by: Ethan Beatty M.D. 03/29/2016 7:41 AM Dictated Date/Time: 03/29/2016 7:36 AM
--- NOTE | 2016-04-01 22:53 | EMERGENCY ROOM VISIT NOTE ---
History First contact with patient: 01:05 Chief Complaint: ABDOMINAL PAIN Stated Complaint: PAIN LT SIDE Nursing Triage Summary: Abd pain starting at 1030 tonight. History of Present Illness The patient is a 50 year old male who presents to the Emergency Room with complaints of left-sided abdominal pain that started about 2 and half hours ago. The patient states that he went to sit up when he felt a popping sensation in left side of his abdomen. He then had intense burning pain that he rated at 10/10. The patient is concerned as he has had recent hernia repair surgery, and feels that he may have ripped something. The patient is nauseated without vomiting. He has not had fever or chills. He has not gone to the bathroom since these pains began. Review of Systems More than 10 systems were reviewed and otherwise negative with the exception of history of present illness. Past Medical/Surgical History Medical Problems: (1) HTN (hypertension) (2) Sinusitis Surgical Problems: (1) H/O hernia repair Family History Diabetes mellitus Hypertension Social History Smoking Status: Never Smoker Alcohol Use: occasionally Drug Use: none Marital Status: Housing Status: lives with family Occupation Status: employed Current/Historical Medications Scheduled Aspirin (Aspirin Low Dose), 81 MG PO QAM Atorvastatin (Lipitor), 10 MG PO QAM Lisinopril (Prinivil), 5 MG PO QAM Pantoprazole (Protonix), 20 MG PO QAM Allergies Coded Allergies: Iodinated Diagnostic Agents (Unverified Allergy, Unknown, ITCHY, 03/29/16) Physical Exam Vital Signs Date Time Temp Pulse Resp B/P Pulse Ox O2 Delivery O2 Flow Rate FiO2 03/29/16 05:12 65 20 128/90 97 03/29/16 03:10 70 20 136/83 96 Room Air 03/29/16 01:00 36.7 92 20 139/99 96 Room Air Pain Rating (0-10): 3.0 Physical Exam VITALS: Vitals are noted on the nurse's note and reviewed by myself. Vital signs stable. GENERAL: Well-developed, well-nourished, white male, who is in no acute distress and resting comfortably. Patient is cooperative with the examination. HEAD: Normocephalic atraumatic. NECK: Supple without nuchal rigidity. No lymphadenopathy. No thyromegaly. Cervical spine is nontender. HEART: Regular rate and rhythm without murmurs gallops or rubs. LUNGS: Clear to auscultation bilaterally without wheezes, rales or rhonchi. No retractions or accessory muscle use. ABDOMEN: Positive normal bowel sounds x 4. Soft, nontender, without masses or organomegaly. No guarding or rebound tenderness. Several well-healing surgical scars are in place. No obvious abscesses or infection noted MUSCULOSKELETAL: No muscle atrophy, erythema, or edema noted. Full range of motion without joint tenderness in all extremities. Medical Decision & Procedures ER Provider Diagnostic Interpretation: ABDOMEN AND PELVIS CT WITHOUT CONTRAST CT DOSE: 892.35 mGy.cm HISTORY: Pain Left side abdominal pain TECHNIQUE: Multiaxial CT images of the abdomen and pelvis were performed without contrast. COMPARISON STUDY: 02/18/2016 FINDINGS: Lung bases are clear. Liver spleen and pancreas are unremarkable. Pancreas is remarkable for fatty infiltration. Kidneys negative for hydronephrosis. The adrenal glands are unremarkable. Interval right parasagittal surgical alignment. Normal appendix. Nonobstructive bowel pattern. Minimal nonobstructive ileus. Scattered colonic diverticulosis. No evidence for acute diverticulitis. Slightly progressive left perinephric infiltrative change. No evidence for an obstructing urinary tract calculus. IMPRESSION: 1. Minimal nonobstructive ileus. 2. Slightly progressive left renal perinephric change raising the possibility of a mild nonspecific pyelonephritis. 3. Scattered colonic diverticulosis with no well-defined evidence for diverticulitis. Laboratory Results 03/29/16 02:02 Red Blood Count 4.96, Mean Corpuscular Volume 86.5, Mean Corpuscular Hemoglobin 30.6, Mean Corpuscular Hemoglobin Concent 35.4, Mean Platelet Volume 9.5, Neutrophils (%) (Auto) 56.7, Lymphocytes (%) (Auto) 30.7, Monocytes (%) (Auto) 9.1, Eosinophils (%) (Auto) 2.9, Basophils (%) (Auto) 0.3, Neutrophils # (Auto) 3.38, Lymphocytes # (Auto) 1.83, Monocytes # (Auto) 0.54, Eosinophils # (Auto) 0.17, Basophils # (Auto) 0.02 03/29/16 02:02 Test 03/29/16 02:02 03/29/16 03:10 White Blood Count 5.96 K/uL (4.8-10.8) Red Blood Count 4.96 M/uL (4.7-6.1) Hemoglobin 15.2 g/dL (14.0-18.0) Hematocrit 42.9 % (42-52) Mean Corpuscular Volume 86.5 fL (80-100) Mean Corpuscular Hemoglobin 30.6 pg (25-34) Mean Corpuscular Hemoglobin Concent 35.4 g/dl (32-36) Platelet Count 191 K/uL (130-400) Mean Platelet Volume 9.5 fL (7.4-10.4) Neutrophils (%) (Auto) 56.7 % Lymphocytes (%) (Auto) 30.7 % Monocytes (%) (Auto) 9.1 % Eosinophils (%) (Auto) 2.9 % Basophils (%) (Auto) 0.3 % Neutrophils # (Auto) 3.38 K/uL (1.4-6.5) Lymphocytes # (Auto) 1.83 K/uL (1.2-3.4) Monocytes # (Auto) 0.54 K/uL (0.11-0.59) Eosinophils # (Auto) 0.17 K/uL (0-0.5) Basophils # (Auto) 0.02 K/uL (0-0.2) RDW Standard Deviation 41.4 fL (36.4-46.3) RDW Coefficient of Variation 13.1 % (11.5-14.5) Immature Granulocyte % (Auto) 0.3 % Immature Granulocyte # (Auto) 0.02 K/uL (0.00-0.02) Anion Gap 10.0 mmol/L (3-11) Est Creatinine Clear Calc Drug Dose 92.0 ml/min Estimated GFR () 81.2 Estimated GFR (Non- 70.1 BUN/Creatinine Ratio 12.4 (10-20) Calcium Level 8.7 mg/dl (8.5-10.1) Total Bilirubin 0.3 mg/dl (0.2-1) Aspartate Amino Transf (AST/SGOT) 17 U/L (15-37) Alanine Aminotransferase (ALT/SGPT) 38 U/L (12-78) Alkaline Phosphatase 123 U/L (45-117) Total Protein 7.1 gm/dl (6.4-8.2) Albumin 3.7 gm/dl (3.4-5.0) Globulin 3.4 gm/dl (2.5-4.0) Albumin/Globulin Ratio 1.1 (0.9-2) Lipase 159 U/L (73-393) Urine Color YELLOW Urine Appearance CLEAR (CLEAR) Urine pH 5.0 (4.5-7.5) Urine Specific [place] 1.024 (1.000-1.030) Urine Protein NEG (NEG) Urine Glucose (UA) NEG (NEG) Urine Ketones NEG (NEG) Urine Occult Blood NEG (NEG) Urine Nitrite NEG (NEG) Urine Bilirubin NEG (NEG) Urine Urobilinogen NEG (NEG) Urine Leukocyte Esterase NEG (NEG) Medications Administered Medications (Trade) Dose Ordered Sig/Je Route Start Time Stop Time Status Last Admin Dose Admin Sodium Chloride (Nss 1000ml) 1,000 ml @ 999 mls/hr Q1H1M ONCE IV 03/29/16 01:30 03/29/16 02:30 DC 03/29/16 02:30 999 MLS/HR Morphine Sulfate (MoRPHine SULFATE INJ) 6 mg NOW STAT IV 03/29/16 01:22 03/29/16 01:24 DC 03/29/16 02:30 6 MG Ondansetron HCl (Zofran Inj) 4 mg NOW STAT IV 03/29/16 01:22 03/29/16 01:24 DC 03/29/16 02:30 4 MG ED Course Physical exam and history were performed. Nursing notes and EMR were reviewed. Patient appears to have left sided abdominal pain for the past few hours. He does not appear toxic on examination. I do not appreciate any distinct point tenderness, and he certainly does not present like an acute surgical abdomen. My primary concern is the patient has had multiple abdominal surgeries over the past few months, and does reveal his pain a 10/10. IV access was established and labs were obtained. The patient was hydrated and medicated as above. Because of his recent history CT scan was performed. The patient's blood is as above and was reviewed. He does not have a significantly elevated white blood cell count, anemia, bandemia, or gross electrolyte imbalance. Lipase and transaminases are nondiagnostic. CT scan does not show significant acute findings. On reevaluation the patient felt much better after hydration and pain medication. Clinically suspect that he may have torn a muscle or have torn an adhesion while sitting up. The patient will need to follow with his surgeon for further care and management. He was certainly invited back to the ER if his symptoms progress or worsen. He has reasonable plan of care and voiced understanding. The chart was completed utilizing [employer] Speech Voice Recognition Software. Grammatical errors, random word insertions, pronoun errors, and incomplete sentences are an occasional consequence of this system due to software limitations, ambient noise, and hardware issues. Any formal questions or concerns about the content, text, or information contained within the body of this dictation should be directly addressed to the provider for clarification. . Medical Decision Differential diagnosis: Etiologies such as appendicitis, diverticulitis, PUD, biliary pathology, UTI, pancreatitis, obstruction, mesenteric ischemia, aortic pathology, infections, inflammatory bowel disease, renal colic, as well as others were entertained. Impression Primary Impression: Left sided abdominal pain Departure Information Dispostion Home / Self-Care Condition GOOD Forms Call Back Authorization, HOME CARE DOCUMENTATION FORM, IMPORTANT VISIT INFORMATION Patient Instructions [facility] Additional Instructions You were seen and evaluated today on an emergency basis only. This is not a substitute for, or an effort to provide, complete comprehensive medical care. It is not possible to recognize and treat all injuries or illnesses in a single emergency department visit. For this reason it is recommended that you followup with your primary care physician this week for ongoing care and evaluation. For baseline pain relief you may alternate ibuprofen and acetaminophen every 4 hours for pain control. Take 600 mg ibuprofen (Advil) and then 4 hours later take 1000 mg acetaminophen (Tylenol). Do not take more than 3000 mg acetaminophen in a single day. You are welcome to return to the emergency department anytime with new, worsening, or concerning symptoms.
[2016-07-17] MEDS ORDERED: ASPI1TAB48 PO (05:34)
[2016-07-17] MEDS ORDERED: ATOR10TA88 PO (14:34)
[2016-07-17] MEDS ORDERED: LISI5TAB PO (17:33)
== END 2016-03-29 05:13 | disposition home or self-care (01) ==
LOC: C.EDB 00:50
DX: R10.9 Unspecified abdominal pain (principal); I10 Essential (primary) hypertension; Z79.82 Long term (current) use of aspirin; Z79.899 Other long term (current) drug therapy; Z91.041 Radiographic dye allergy status; Z83.3 Family history of diabetes mellitus; Z82.49 Family history of ischemic heart disease and other diseases of the circulatory system

== ENCOUNTER 2016-07-08 22:13 | Emergency (ER) | payer OTHER ==
[~2016-07-08] VITALS: Ht 182.9 cm; Wt 97.9 kg
[~2016-07-08 22:13] MED LIST changes: -OXYC-57 PO
[2016-07-08 22:15] VITALS: Ht 182.9 cm; Wt 97.9 kg
[2016-07-08] MEDS ORDERED: KETOROLAC TROMETHAMINE 30 MG/ML VIAL IV STA (23:12)
[2016-07-08] MEDS ORDERED: CEFTRIAXONE SOD INJ 1 GM ADDVIAL IV STA (23:12)
[2016-07-08] MEDS ORDERED: ONDANSETRON INJ 2 MG/ML 2 ML VIAL IV STA (23:12)
[2016-07-08] MEDS ORDERED: DEXAMETHASONE SOD INJ 10 MG/ML VIAL IM ONE (23:15)
[2016-07-08 23:56] LABS: BASO % 0.3 %; BASO ABS # 0.02 K/uL (0-0.2); COMPLETE YES; EOS % 1.8 %; HEMATOCRIT 45.1 % (42-52); IG% 0.3 %; LYMPH % 23.9 %; LYMPH ABS # 1.75 K/uL (1.2-3.4); MEAN CELL VOLUME 87.7 fL (80-100); MEAN CORPUSCULAR HGB CONC 34.1 g/dl (32-36); MEAN PLATELET VOLUME 9.6 fL (7.4-10.4); MONO % 9.8 %; NEUT % 63.9 %; PLATELET COUNT 245 K/uL (130-400); RED BLOOD COUNT 5.14 M/uL (4.7-6.1); WHITE BLOOD COUNT 7.31 K/uL (4.8-10.8)
[2016-07-09 00:22] LABS: CALCIUM 8.8 mg/dl (8.5-10.1); CREATININE 1.2 mg/dl (0.60-1.40); POTASSIUM 3.8 mmol/L (3.5-5.1)
[2016-07-09 00:30] VITALS: TEMP 37
[2016-07-09 01:02] VITALS: BP 91/54; PULSE 65; O2SAT 95
[2016-07-09] MEDS ORDERED: SULF800T23 PO (01:29)
[2016-07-09] MEDS ORDERED: CEPH500C2 PO (01:29)
[2016-07-09] MEDS ORDERED: OXYCODONE IR HOME PACK PO ONE (01:30)
[2016-07-09] MEDS ORDERED: SEPTRA DS HOME PACK 1 EA VIAL PO ONE (01:30)
[2016-07-09] MEDS ORDERED: CEPHALEXIN 500MG HOME PACK 1 EA BTL PO ONE (01:30)
--- NOTE | 2016-07-09 01:43 | EMERGENCY ROOM VISIT NOTE ---
History First contact with patient: 23:04 Chief Complaint: BITE Stated Complaint: LUMP ON L HIP History of Present Illness The patient is a 50 year old male who presents to the Emergency Room with complaints of left buttock infection for the past 2 days. Patient states something bit him. He is unsure what. Tetanus is current. He states the redness has spread. Patient denies chest pain, dyspnea, throat tightness, facial swelling, fever, chills, cough, congestion, nausea, vomiting, diarrhea. He does feel achy. Review of Systems See HPI for pertinent positives & negatives. A total of 10 systems reviewed and were otherwise negative. Past Medical/Surgical History Medical Problems: (1) HTN (hypertension) (2) Sinusitis Surgical Problems: (1) H/O hernia repair Family History Diabetes mellitus Hypertension Social History Smoking Status: Current Some Day Smoker Alcohol Use: occasionally Drug Use: none Marital Status: Housing Status: lives with family Occupation Status: employed Current/Historical Medications Scheduled Aspirin (Aspirin Low Dose), 81 MG PO QAM Atorvastatin (Lipitor), 10 MG PO QAM Cephalexin Monohydrate (Keflex), 500 MG PO QID Lisinopril (Prinivil), 5 MG PO QAM Sulfa/Trimethoprim (Bactrim Ds 800MG/160MG), 1 TAB PO BID Allergies Coded Allergies: Iodinated Diagnostic Agents (Unverified Allergy, Unknown, ITCHY, 03/29/16) Physical Exam Vital Signs Date Time Temp Pulse Resp B/P Pulse Ox O2 Delivery O2 Flow Rate FiO2 07/09/16 01:02 65 20 91/54 95 07/09/16 00:30 37.0 72 16 86/61 94 Room Air 07/08/16 23:44 68 20 98/58 95 07/08/16 22:15 36.5 92 16 123/72 97 Room Air Physical Exam VITALS: Vitals are noted on the nurse's note and reviewed by myself. Vital signs stable. GENERAL: Pleasant male, in no acute distress, nondiaphoretic, well-developed well-nourished. SKIN: Left buttock with insect bite with surrounding erythema and induration 8 cm x 8 cm but no lymphangitis or fluctuance The rest of the skin was without rashes, erythema, edema, or bruising. There is no tenting of the skin. Capillary reflex less than 2 seconds. HEAD: Normocephalic atraumatic. EARS: External auditory canals clear, tympanic membranes pearly white without erythema or effusion bilaterally. EYES: Pupils equal round and reactive to light and accommodation. Conjunctivae without injection, sclerae without icterus. Extraocular movements intact. NOSE: Patent, turbinates without inflammation or discharge. MOUTH: Mucous membranes moist. Pharynx without erythema or exudate. Uvula midline. Airway patent. Tongue does not deviate. NECK: Supple without nuchal rigidity. No lymphadenopathy. No thyromegaly. Cervical spine is nontender. No JVD. HEART: Regular rate and rhythm without murmurs gallops or rubs. LUNGS: Clear to auscultation bilaterally without wheezes, rales or rhonchi. No dullness to percussion. No retractions or accessory muscle use. ABDOMEN: Positive bowel sounds x 4. Normal tympanic percussion. Soft, nontender, without masses or organomegaly. Méndez sign negative. No guarding or rebound tenderness. Buttock exam: Left buttock with insect bite with surrounding erythema and induration 8 cm x 8 cm but no lymphangitis or fluctuance MUSCULOSKELETAL: No muscle atrophy, erythema, or edema noted. NEURO: Patient was alert and oriented to person place and time. Normal sensation to light and sharp touch. No focal neurological deficits. Medical Decision & Procedures Laboratory Results 07/08/16 23:44 Red Blood Count 5.14, Mean Corpuscular Volume 87.7, Mean Corpuscular Hemoglobin 30.0, Mean Corpuscular Hemoglobin Concent 34.1, Mean Platelet Volume 9.6, Neutrophils (%) (Auto) 63.9, Lymphocytes (%) (Auto) 23.9, Monocytes (%) (Auto) 9.8, Eosinophils (%) (Auto) 1.8, Basophils (%) (Auto) 0.3, Neutrophils # (Auto) 4.67, Lymphocytes # (Auto) 1.75, Monocytes # (Auto) 0.72, Eosinophils # (Auto) 0.13, Basophils # (Auto) 0.02 07/08/16 23:44 Test 07/08/16 23:44 White Blood Count 7.31 K/uL (4.8-10.8) Red Blood Count 5.14 M/uL (4.7-6.1) Hemoglobin 15.4 g/dL (14.0-18.0) Hematocrit 45.1 % (42-52) Mean Corpuscular Volume 87.7 fL (80-100) Mean Corpuscular Hemoglobin 30.0 pg (25-34) Mean Corpuscular Hemoglobin Concent 34.1 g/dl (32-36) Platelet Count 245 K/uL (130-400) Mean Platelet Volume 9.6 fL (7.4-10.4) Neutrophils (%) (Auto) 63.9 % Lymphocytes (%) (Auto) 23.9 % Monocytes (%) (Auto) 9.8 % Eosinophils (%) (Auto) 1.8 % Basophils (%) (Auto) 0.3 % Neutrophils # (Auto) 4.67 K/uL (1.4-6.5) Lymphocytes # (Auto) 1.75 K/uL (1.2-3.4) Monocytes # (Auto) 0.72 K/uL (0.11-0.59) Eosinophils # (Auto) 0.13 K/uL (0-0.5) Basophils # (Auto) 0.02 K/uL (0-0.2) RDW Standard Deviation 41.1 fL (36.4-46.3) RDW Coefficient of Variation 12.9 % (11.5-14.5) Immature Granulocyte % (Auto) 0.3 % Immature Granulocyte # (Auto) 0.02 K/uL (0.00-0.02) Anion Gap 8.0 mmol/L (3-11) Est Creatinine Clear Calc Drug Dose 89.3 ml/min Estimated GFR () 81.2 Estimated GFR (Non- 70.1 BUN/Creatinine Ratio 12.0 (10-20) Calcium Level 8.8 mg/dl (8.5-10.1) Medications Administered Medications (Trade) Dose Ordered Sig/Je Route Start Time Stop Time Status Last Admin Dose Admin Dexamethasone Sodium Phosphate (Decadron Inj) 10 mg NOW ONCE IM 07/08/16 23:15 07/08/16 23:16 DC 07/08/16 23:15 10 MG Ceftriaxone Sodium (Rocephin Inj) 1 gm NOW STAT IV 07/08/16 23:12 07/08/16 23:14 DC 07/08/16 23:43 1 GM Ketorolac Tromethamine (Toradol Inj) 30 mg NOW STAT IV 07/08/16 23:12 07/08/16 23:14 DC 07/08/16 23:42 30 MG Ondansetron HCl (Zofran Inj) 4 mg NOW STAT IV 07/08/16 23:12 07/08/16 23:14 DC 07/08/16 23:42 4 MG ED Course Prior records reviewed and summarized as above. Triage Nursing notes reviewed. Additional history obtained from family. The patient's history was concerning for swelling and redness of the skin. Differential diagnosis: Etiologies such as cellulitis, abscess, MRSA infection, DVT, necrotizing fasciitis, dermatitis, drug eruption, as well as others were entertained.. Physical examination: The physical examination was consistent with cellulitis ER treatment provided: Rocephin, home pack Keflex and Bactrim and oxy On reassessment the patient felt better. Diagnostics interpreted by me: The labs revealed no worrisome leukocytosis or electrolyte abnormality Imaging studies: US EXTREMITY: Ill-defined hypoechoic area in the left gluteal subcutaneous soft tissues measuring 1.0 x 1.1 x 2.1 cm with surrounding subcutaneous soft tissue edema. This is suggestive of cellulitis and phlegmonous change. No evidence of drainable fluid collection. Radiologist: Wilfredo Truong MD This appears to be isolated cellulitis from infected insect bite. Patient's area looked much better after steroids and antibiotics. This is probably a mixed component of allergic reaction with infection. Patient was sleeping and I believe his blood pressure lowered because of this. When he was awake his blood pressure was normal. Patient is advised to have a repeat evaluation in 2- 3 days for his infection or here in the ER sooner for spreading infection, fevers, vomiting, worsening signs or symptoms or as needed. Patient had no lymphangitis on exam. He is afebrile and nontoxic. He was well-appearing. He felt better and requested to leave.. By the evaluation outlined above emergent etiologies such as abscess, necrotizing fasciitis, DVT, as well as others were deemed relatively unlikely. The pt informed about the findings as listed above. All questions were answered and pleased with the treatment. Return instructions were outlined and the patient was discharged in stable condition. Outpatient prescription management: Bactrim, Keflex Referral: The patient was referred back to primary care physician for follow-up in 2 to 3 days for a recheck of the current condition. Case reviewed with my attending Medical Decision As above Impression Primary Impression: Infected insect bite of buttock Departure Information Dispostion Home / Self-Care Condition GOOD Prescriptions Sulfa/Trimethoprim (Bactrim Ds 800MG/160MG) Tab 1 TAB PO BID, #18 TAB Prov: Niurka Michaud PA-C 07/09/16 Cephalexin Monohydrate (KEFLEX) 500 Mg Cap 500 MG PO QID, #36 CAP Prov: Niurka Michaud PA-C 07/09/16 Forms HOME CARE DOCUMENTATION FORM, Work Instructions, Return To Work: 2 days IMPORTANT VISIT INFORMATION Patient Instructions Cellulitis - [facility], My [facility] Additional Instructions Cephalexin(Keflex) 500mg: Take one pill four times daily for 10 days for your skin infection. All antibiotics can cause diarrhea. If this occurs and you feel worse or it does not resolve in 1-2 days follow up with your doctor or return to the Emergency Department as this could be signs of serious underlying problems. Any medication can cause an allergic reaction, stop the pills immediately and return to the ER for rash, hives, breathing difficulties, or swelling. Trimethoprim-Sulfamethoxazole(Bactrim DS): Take one pill twice daily for 10 days for your skin infection. All antibiotics can cause diarrhea. If this occurs and you feel worse or it does not resolve in 1-2 days follow up with your doctor or return to the Emergency Department as this could be signs of serious underlying problems. Any medication can cause an allergic reaction, stop the pills immediately and return to the ER for rash, hives, breathing difficulties, or swelling. Ibuprofen(Motrin, Advil) may be used for fever or pain. Use 600mg every six hours as needed. Take with food. Avoid using more than 2400mg in a 24 hour period. Do not use 2400mg per day for more than three consecutive days without physician direction. Prolonged inappropriate use can lead to stomach upset or ulcers. (AND/OR) Acetaminophen(Tylenol) may be used for fever or pain. Use 1000mg every six hours as needed. Avoid using more than 3000mg in a 24 hour period. Warm compresses to the affected area 4 times daily for 15-20 minutes. Rest and drink plenty of fluids. Continue current medications. Return to the ER for severe pain, persistent fevers, spreading redness, or any worsening of your condition. Follow up with your primary physician within 2-3 days for a recheck of the current condition. Work Instructions Return To Work: 2 days Problem Qualifiers Primary Impression: Infected insect bite of buttock Encounter type: initial encounter Qualified Codes: S30.860A - Insect bite ( nonvenomous) of lower back and pelvis, initial encounter; L08.9 - Local infection of the skin and subcutaneous tissue, unspecified; W57.XXXA - Bitten or stung by nonvenomous insect and other nonvenomous arthropods, initial encounter
--- NOTE | 2016-07-09 07:34 | DIAGNOSTIC IMAGING REPORT ---
ULTRASOUND SOFT TISSUES LEFT BUTTOCK CLINICAL HISTORY: Cellulitis. Clinical concern for abscess. COMPARISON STUDY: Pelvic CT dated 03/29/16. FINDINGS: Real-time, grayscale, and color flow sonography of the left buttock is performed at the indicated site of interest. There is soft tissue edema and thickening seen at this site, likely represents cellulitis. There is an ill-defined hypoechoic area in the left gluteal subcutaneous fat at this site measuring 0.8 x 1.3 x 2.1 cm. This likely represents phlegmonous change. No drainable fluid collection is seen. IMPRESSION: Findings are consistent with cellulitis and phlegmonous change in the left buttock at the indicated site of interest. No drainable fluid collection is seen. Electronically signed by: Bebeto Palmer M.D. 07/09/2016 7:32 AM Dictated Date/Time: 07/09/2016 7:30 AM
[2016-07-17] MEDS ORDERED: ASPI1TAB48 PO (05:34)
[2016-07-17] MEDS ORDERED: ATOR10TA82 PO (14:34)
[2016-07-17] MEDS ORDERED: LISI5TAB PO (17:33)
== END 2016-07-09 01:35 | disposition home or self-care (01) ==
LOC: C.EDB 22:14
DX: S30.860A Insect bite (nonvenomous) of lower back and pelvis, initial encounter (principal); W57.XXXA Bitten or stung by nonvenomous insect and other nonvenomous arthropods, initial encounter; I10 Essential (primary) hypertension; F17.200 Nicotine dependence, unspecified, uncomplicated; Z98.890 Other specified postprocedural states; Z79.82 Long term (current) use of aspirin; Z79.899 Other long term (current) drug therapy; Z91.041 Radiographic dye allergy status; Z83.3 Family history of diabetes mellitus; Z82.49 Family history of ischemic heart disease and other diseases of the circulatory system

== ENCOUNTER 2016-07-17 20:15 | Emergency (ER) | payer OTHER ==
[~2016-07-17 20:15] MED LIST changes: +ASPI1TAB48 PO; +ATOR10TA82 PO; +CEPH500C2 PO; +LISI5TAB PO; -PRT/20 PO; +SULF800T23 PO
[2016-07-17 20:23] VITALS: BP 119/72; TEMP 38.1; O2SAT 94; Ht 182.9 cm
[2016-07-17] MEDS ORDERED: ACETAMINOPHEN 500 MG TAB PO STA (20:43)
[2016-07-17] MEDS ORDERED: KETOROLAC TROMETHAMINE 30 MG/ML VIAL IV STA (20:43)
[2016-07-17] MEDS ORDERED: SODIUM CHLORIDE 0.9% 1000ML 1,000 ML IV STA (20:43)
[2016-07-17] MEDS ORDERED: CEFTRIAXONE SOD INJ 1 GM ADDVIAL IV STA (20:43)
--- NOTE | 2016-07-17 21:20 | DIAGNOSTIC IMAGING REPORT ---
CHEST ONE VIEW PORTABLE HISTORY: Evaluate Fever/Sepsis COMPARISON: Chest 09/06/2015. FINDINGS: The lungs are clear. Cardiac silhouette is normal in size. No pleural effusions. No pneumothorax. IMPRESSION: No acute process. Electronically signed by: Silverio Yepez M.D. 07/17/2016 9:19 PM Dictated Date/Time: 07/17/2016 9:18 PM
[2016-07-17 21:21] VITALS: PULSE 89
[2016-07-17 21:26] LABS: BASO % 0.2 %; BASO ABS # 0.01 K/uL (0-0.2); COMPLETE YES; EOS % 1.4 %; HEMATOCRIT 43.4 % (42-52); IG% 0.2 %; LYMPH % 10.7 %; LYMPH ABS # 0.52 K/uL (1.2-3.4); MEAN CELL VOLUME 86.6 fL (80-100); MEAN CORPUSCULAR HEMOGLOBIN 30.3 pg (25-34); MEAN PLATELET VOLUME 9.1 fL (7.4-10.4); MONO % 11.3 %; NEUT % 76.2 %; PLATELET COUNT 175 K/uL (130-400); RED BLOOD COUNT 5.01 M/uL (4.7-6.1); WHITE BLOOD COUNT 4.87 K/uL (4.8-10.8)
[2016-07-17 21:38] LABS: PARTIAL THROMBOPLASTIN RATIO 1.1; PROTHROMBIN TIME (PATIENT) 10.7 SECONDS (9.0-12.0)
[2016-07-17 21:42] LABS: ALT/SGPT 57 U/L (12-78); BLOOD UREA NITROGEN 13 mg/dl (7-18); BUN/CREATININE RATIO 9.2 (10-20); CARBON DIOXIDE 24 mmol/L (21-32); CHLORIDE 101 mmol/L (98-107); GLUCOSE 112 mg/dl (70-99); POTASSIUM 4.1 mmol/L (3.5-5.1); SODIUM 134 mmol/L (136-145)
[2016-07-17 21:48] LABS: ALKALINE PHOSPHATASE 129 U/L (45-117); AST/SGOT 26 U/L (15-37)
[2016-07-17 21:58] LABS: CALCIUM 8.7 mg/dl (8.5-10.1)
[2016-07-17 22:03] LABS: URINE APPEARANCE CLEAR (CLEAR); URINE BILIRUBIN NEG (NEG); URINE COLOR YELLOW; URINE NITRITE NEG (NEG); URINE PH 7.5 (4.5-7.5); URINE SPECIFIC GRAVITY 1.009 (1.000-1.030); UROBILINOGEN NEG (NEG); ZZUR CULT IF INDIC CLEAN CATCH NO
[2016-07-17 22:13] LABS: MANUAL MICROSCOPIC REQUIRED? NO; REVIEW REQ? NO
--- NOTE | 2016-07-17 22:34 | EMERGENCY ROOM VISIT NOTE ---
History Report prepared by Héctor: Janelle White Under the Supervision of: Dr. Fritz Wright D.O. First contact with patient: 20:30 Chief Complaint: FEVER Stated Complaint: FEVER,DISORIENTED,LIGHT HEADED History of Present Illness The patient is a 50 year old male who presents to the Emergency Room with complaints of an intermittent fever starting a week ago. The patient states that he came to the ED for a bite that was on his butt from a spider a week and a half ago. He reports that he was given antibiotic for it and that his symptoms started shortly after. The patient complains of lightheadedness, disorientation, neck pain, headache, cough, fatigue, chills, and gagging. He reports that some mornings he can't brush his teeth even because he gags so much he vomits. The patient notes that his cough is a "flemmy sounding" cough that produces no substance. He reports feeling achy all over and notes that light bothers his eyes some. The patient denies diarrhea and recent travel. Source of History: patient Onset: a week ago Position: other (global) Quality: other (global) Timing: intermittent Associated Symptoms: + chills, + headache, + cough, + neck pain, + vomiting , + fatigue, No diarrhea Note: The patient complains of lightheadedness, disorientation, gagging, and being achey. He denies a cough that produces any substance. Review of Systems See HPI for pertinent positives & negatives. A total of 10 systems reviewed and were otherwise negative. Past Medical & Surgical Medical Problems: (1) HTN (hypertension) (2) Sinusitis Surgical Problems: (1) H/O hernia repair Family History Diabetes mellitus Hypertension Social History Smoking Status: Current Some Day Smoker Alcohol Use: occasionally Drug Use: none Marital Status: Housing Status: lives with family Occupation Status: employed Current/Historical Medications Scheduled Aspirin (Aspirin Low Dose), 81 MG PO QAM Atorvastatin (Lipitor), 10 MG PO QAM Cephalexin Monohydrate (Keflex), 500 MG PO QID Lisinopril (Prinivil), 5 MG PO QAM Sulfa/Trimethoprim (Bactrim Ds 800MG/160MG), 1 TAB PO BID Allergies Coded Allergies: Iodinated Diagnostic Agents (Unverified Allergy, Unknown, ITCHY, 03/29/16) Physical Exam Vital Signs Date Time Temp Pulse Resp B/P (MAP) Pulse Ox O2 Delivery O2 Flow Rate FiO2 07/17/16 21:21 89 07/17/16 20:23 38.1 104 18 119/72 94 Room Air Physical Exam CONSTITUTIONAL/VITAL SIGNS: Reviewed / noted above. GENERAL: Non-toxic in appearance. INTEGUMENTARY: Warm, dry, and [place]. HEAD: Normocephalic. EYES: without scleral icterus or trauma. No photophobia ENT/OROPHARYNX: clear and moist. LYMPHADENOPATHY/NECK: Is supple without lymphadenopathy or meningismus. RESPIRATORY: Lungs clear and equal. CARDIOVASCULAR: Regular rate and rhythm. GI/ABDOMEN: Soft and nontender. No organomegaly or pulsatile mass. No rebound or guarding. Normal bowel sounds. EXTREMITIES: Warm and well perfused. BACK: No CVA tenderness. BUTTOCK: Left buttock reveals a resolved cellulitis. NEUROLOGICAL: Intact without focal deficits. PSYCHIATRIC: normal affect. MUSCULOSKELETAL: Normally developed with good muscle tone. Medical Decision & Procedures ER Provider Diagnostic Interpretation: Radiology results as stated below per my review and radiologist interpretation: CHEST ONE VIEW PORTABLE HISTORY: Evaluate Fever/Sepsis COMPARISON: Chest 09/06/2015. FINDINGS: The lungs are clear. Cardiac silhouette is normal in size. No pleural effusions. No pneumothorax. IMPRESSION: No acute process. Electronically signed by: Silverio Yeepz M.D. 07/17/2016 9:19 PM Dictated Date/Time: 07/17/2016 9:18 PM Laboratory Results 07/17/16 21:10 Red Blood Count 5.01, Mean Corpuscular Volume 86.6, Mean Corpuscular Hemoglobin 30.3, Mean Corpuscular Hemoglobin Concent 35.0, Mean Platelet Volume 9.1, Neutrophils (%) (Auto) 76.2, Lymphocytes (%) (Auto) 10.7, Monocytes (%) (Auto) 11.3, Eosinophils (%) (Auto) 1.4, Basophils (%) (Auto) 0.2, Neutrophils # (Auto ) 3.71, Lymphocytes # (Auto) 0.52, Monocytes # (Auto) 0.55, Eosinophils # (Auto ) 0.07, Basophils # (Auto) 0.01 07/17/16 21:10 Test 07/17/16 00:00 07/17/16 21:10 07/17/16 21:40 Influenza Type A Antigen Neg for Influ A (NEG) Influenza Type B Antigen Neg for Influ B (NEG) White Blood Count 4.87 K/uL (4.8-10.8) Red Blood Count 5.01 M/uL (4.7-6.1) Hemoglobin 15.2 g/dL (14.0-18.0) Hematocrit 43.4 % (42-52) Mean Corpuscular Volume 86.6 fL (80-100) Mean Corpuscular Hemoglobin 30.3 pg (25-34) Mean Corpuscular Hemoglobin Concent 35.0 g/dl (32-36) Platelet Count 175 K/uL (130-400) Mean Platelet Volume 9.1 fL (7.4-10.4) Neutrophils (%) (Auto) 76.2 % Lymphocytes (%) (Auto) 10.7 % Monocytes (%) (Auto) 11.3 % Eosinophils (%) (Auto) 1.4 % Basophils (%) (Auto) 0.2 % Neutrophils # (Auto) 3.71 K/uL (1.4-6.5) Lymphocytes # (Auto) 0.52 K/uL (1.2-3.4) Monocytes # (Auto) 0.55 K/uL (0.11-0.59) Eosinophils # (Auto) 0.07 K/uL (0-0.5) Basophils # (Auto) 0.01 K/uL (0-0.2) RDW Standard Deviation 40.6 fL (36.4-46.3) RDW Coefficient of Variation 12.7 % (11.5-14.5) Immature Granulocyte % (Auto) 0.2 % Immature Granulocyte # (Auto) 0.01 K/uL (0.00-0.02) Prothrombin Time 10.7 SECONDS (9.0-12.0) Prothromb Time International Ratio 1.0 (0.9-1.1) Activated Partial Thromboplast Time 28.2 SECONDS (21.0-31.0) Partial Thromboplastin Ratio 1.1 Anion Gap 9.0 mmol/L (3-11) Estimated GFR () 67.4 Estimated GFR (Non- 58.2 BUN/Creatinine Ratio 9.2 (10-20) Calcium Level 8.7 mg/dl (8.5-10.1) Total Bilirubin 0.4 mg/dl (0.2-1) Direct Bilirubin 0.1 mg/dl (0-0.2) Aspartate Amino Transf (AST/SGOT) 26 U/L (15-37) Alanine Aminotransferase (ALT/SGPT) 57 U/L (12-78) Alkaline Phosphatase 129 U/L (45-117) Total Creatine Kinase 75 U/L (39-308) Creatine Kinase MB < 0.5 ng/ml (0.5-3.6) Creatine Kinase MB Ratio (0-3.0) Troponin I < 0.015 ng/ml (0-0.045) Total Protein 7.4 gm/dl (6.4-8.2) Albumin 3.5 gm/dl (3.4-5.0) Lipase 102 U/L (73-393) Lyme Disease IgG Antibody NEG (NEG) Urine Color YELLOW Urine Appearance CLEAR (CLEAR) Urine pH 7.5 (4.5-7.5) Urine Specific [place] 1.009 (1.000-1.030) Urine Protein NEG (NEG) Urine Glucose (UA) NEG (NEG) Urine Ketones NEG (NEG) Urine Occult Blood NEG (NEG) Urine Nitrite NEG (NEG) Urine Bilirubin NEG (NEG) Urine Urobilinogen NEG (NEG) Urine Leukocyte Esterase NEG (NEG) Urine WBC (Auto) 0 /hpf (0-5) Urine RBC (Auto) 0-4 /hpf (0-4) Urine Hyaline Casts (Auto) 0 /lpf (0-5) Urine Epithelial Cells (Auto) 5-10 /lpf (0-5) Urine Bacteria (Auto) NEG (NEG) Laboratory results as stated above per my review. Medications Administered Medications (Trade) Dose Ordered Sig/Je Route Start Time Stop Time Status Last Admin Dose Admin Sodium Chloride 1,000 ml @ 999 mls/hr Q1H1M STAT IV 07/17/16 20:43 07/17/16 21:43 DC 07/17/16 20:43 999 MLS/HR Acetaminophen (Tylenol Tab) 1,000 mg NOW STAT PO 07/17/16 20:43 07/17/16 20:48 DC 07/17/16 21:08 1,000 MG Ceftriaxone Sodium (Rocephin Inj) 1 gm NOW STAT IV 07/17/16 20:43 07/17/16 20:48 DC 07/17/16 21:07 1 GM Ketorolac Tromethamine (Toradol Inj) 30 mg NOW STAT IV 07/17/16 20:43 07/17/16 20:48 DC 07/17/16 21:07 30 MG ECG Indication: other (lightheadedness) Rate (beats per minute): 97 Rhythm: normal sinus Findings: no acute ischemic change, no ectopy ED Course 2035: Previous medical records were reviewed. The patient was evaluated in room C2B. A complete history and physical examination was performed. 2042: Ordered Toradol Inj 30 mg IV, Rocephin Inj 1 gm IV, Tylenol Tab 1000 mg PO , NSS 1000 ml @ 999 mls/hr IV. 2225: On reevaluation, the patient is resting comfortably. I discussed the results and findings with the patient. He verbalized agreement of the treatment plan. The patient was discharged home. Medical Decision Medication Reconciliation: I attest that I have personally reviewed the patient' s current medication list. Blood pressure Screening: Patient was found to have normal blood pressure on screening and does not require follow-up. Differential diagnosis: Etiologies such as viral syndrome, otitis, pharyngitis, pneumonia, influenza, meningitis, urinary tract infection, sepsis, bacteremia, as well as others were entertained. This is a 50-year-old male who presents to the ED with a chief complaint of a generalized achiness, cough and fever today. The patient also stated that he felt a little briggs and disoriented. He has had some posterior neck and posterior head pain. The patient states that he was seen here a little over a week ago for an infection in his left buttock area. He is currently taking Keflex. He states that the infection seems to have improved for the most part. He developed his current symptoms over the past day or so. Temperature is 38.1. Heart rate was 104. Blood pressure is unremarkable. Physical exam does not show any significant abnormalities. His left buttock does not reveal any acute infection at this point. There is no meningismus or photosensitivity. CBC is normal, complete metabolic panel was unremarkable. Troponin is negative. EKG shows a normal sinus rhythm at a rate of 97. Chest x-ray did not show acute disease. Flu swab was negative. Lyme test was negative. Urine did not show acute abnormality or infection. The patient was treated with IV Toradol, IV fluids, IV Rocephin and by mouth Tylenol. The exact source of his fevers unclear. He is currently on Keflex. His symptoms could be related to a new viral syndrome of some sort. There does not appear to be any evidence of worsening bacterial infection, abscess or systemic bacterial infection. He will finish his course of Keflex. He will follow-up with his family doctor in 1 -2 days for recheck. He will return for worsening. Impression Primary Impression: Fever Additional Impression: Myalgia Scribe Attestation The scribe's documentation has been prepared under my direction and personally reviewed by me in its entirety. I confirm that the note above accurately reflects all work, treatment, procedures, and medical decision making performed by me. Departure Information Dispostion Home / Self-Care Referrals Rashid Baxter M.D. (PCP) Forms HOME CARE DOCUMENTATION FORM, IMPORTANT VISIT INFORMATION Patient Instructions My [facility] Additional Instructions Finish the course of antibiotics you are currently taking. Take Tylenol or Motrin as needed for fever. Follow-up with your family doctor for recheck in 1-3 days. Return for worsening or new concerns. Problem Qualifiers Primary Impression: Fever Fever type: unspecified Qualified Codes: R50.9 - Fever, unspecified
== END 2016-07-17 22:44 | disposition home or self-care (01) ==
LOC: C.EDB 20:16 → C.EDC 22:44
DX: R50.9 Fever, unspecified (principal); M79.1 Myalgia; I10 Essential (primary) hypertension; J32.9 Chronic sinusitis, unspecified; Z83.3 Family history of diabetes mellitus; Z82.49 Family history of ischemic heart disease and other diseases of the circulatory system; F17.210 Nicotine dependence, cigarettes, uncomplicated; Z79.82 Long term (current) use of aspirin; Z79.899 Other long term (current) drug therapy

== ENCOUNTER → 2016-07-19 | Outpatient (CLI) | payer OTHER ==
[~2016-07-19] MED LIST changes: +CHOL1000 PO; +LSN10 PO; +MULT-506 PO
== END | disposition home or self-care (01) ==
LOC: C.LABPVFM 11:10
PROVIDERS: ATTEND Family Medicine
DX: E55.9 Vitamin D deficiency, unspecified (principal)

== ENCOUNTER 2016-10-19 21:56 | Emergency (ER) | payer OTHER ==
[~2016-10-19] VITALS: Ht 182.9 cm; Wt 97.0 kg
[~2016-10-19 21:56] MED LIST changes: -ATOR10TA82 PO; +ATOR10TA88 PO; -CHOL1000 PO; -LSN10 PO; -MULT-506 PO
[2016-10-19 21:58] VITALS: TEMP 36.5; Ht 182.9 cm; Wt 97.0 kg
[2016-10-19] MEDS ORDERED: CHOL1000 PO (22:16)
[2016-10-19] MEDS ORDERED: MULT-506 PO (22:16)
[2016-10-19] MEDS ORDERED: KETOROLAC TROMETHAMINE 30 MG/ML VIAL IV STA (22:17)
[2016-10-19 22:56] LABS: BASO % 0.3 %; BASO ABS # 0.02 K/uL (0-0.2); COMPLETE YES; EOS % 4.9 %; HEMATOCRIT 41.5 % (42-52); IG% 0.2 %; LYMPH % 32.2 %; LYMPH ABS # 1.89 K/uL (1.2-3.4); MEAN CELL VOLUME 89.6 fL (80-100); MEAN CORPUSCULAR HEMOGLOBIN 30.2 pg (25-34); MEAN CORPUSCULAR HGB CONC 33.7 g/dl (32-36); MEAN PLATELET VOLUME 9.7 fL (7.4-10.4); NEUT % 53.4 %; PLATELET COUNT 202 K/uL (130-400); RED BLOOD COUNT 4.63 M/uL (4.7-6.1); WHITE BLOOD COUNT 5.87 K/uL (4.8-10.8)
[2016-10-19 23:06] LABS: URINE APPEARANCE CLEAR (CLEAR); URINE BILIRUBIN NEG (NEG); URINE COLOR YELLOW; URINE NITRITE NEG (NEG); UROBILINOGEN NEG (NEG); ZZUR CULT IF INDIC CLEAN CATCH NO
[2016-10-19 23:20] LABS: MANUAL MICROSCOPIC REQUIRED? NO; REVIEW REQ? NO
[2016-10-19 23:20] LABS: BUN/CREATININE RATIO 18.3 (10-20); CALCIUM 9.2 mg/dl (8.5-10.1); CREATININE 1.2 mg/dl (0.60-1.40)
--- NOTE | 2016-10-20 00:50 | EMERGENCY ROOM VISIT NOTE ---
History Report prepared by Scribanabel: Sg Smith Under the Supervision of: Dr. Kieran Smiley D.O. First contact with patient: 22:03 Chief Complaint: FLANK PAIN Stated Complaint: RIGHT SIDE PAIN RADIATING INTO BACK History of Present Illness The patient is a 50 year old male who presents to the Emergency Room with complaints of intermittent right upper abdominal pain beginning 1 week ago. He states that his pain occasionally radiates into his lower back. He has a history of broken ribs and states that his current symptoms feel similar. The patient's pain is worsened with movement. He states that his work is fairly strenuous, but denies any increased straining recently. He denies any recent trauma. The patient notes that he has had a cold recently, and has been coughing a lot. His pain is worsened with coughing. Source of History: patient Onset: 1 week ago Position: abdomen (right upper) Timing: intermittent Modifying Factors (Worsening): movement, other (coughing) Associated Symptoms: + cough, + back pain (radiating into low back) Review of Systems See HPI for pertinent positives and negatives. A total of ten systems were reviewed and were otherwise negative. Past Medical & Surgical Medical Problems: (1) HTN (hypertension) (2) Sinusitis Surgical Problems: (1) H/O hernia repair Family History Diabetes mellitus Hypertension Social History Smoking Status: Current Some Day Smoker Alcohol Use: occasionally Drug Use: none Marital Status: Housing Status: lives with family Occupation Status: employed Current/Historical Medications Scheduled Aspirin (Aspirin Low Dose), 81 MG PO QAM Atorvastatin (Lipitor), 10 MG PO QAM Cholecalciferol (Vitamin D3), 2,000 INTER.UNIT PO DAILY Lisinopril (Prinivil), 5 MG PO QAM Multivitamin (Multivitamin), 1 TAB PO DAILY Allergies Coded Allergies: Iodinated Diagnostic Agents (Unverified Allergy, Unknown, ITCHY, 10/19/16) Physical Exam Vital Signs Date Time Temp Pulse Resp B/P (MAP) Pulse Ox O2 Delivery O2 Flow Rate FiO2 10/19/16 23:29 59 18 126/89 96 Room Air 10/19/16 21:58 36.5 74 18 136/95 97 Room Air Physical Exam GENERAL: Awake, alert, well-appearing, in no distress HENT: Normocephalic, atraumatic. Oropharynx unremarkable. EYES: Normal conjunctiva. Sclera non-icteric. NECK: Supple. No nuchal rigidity. FROM. No JVD. RESPIRATORY: Clear to auscultation. CARDIAC: Regular rate, normal rhythm. Extremities warm and well perfused. Pulses equal. ABDOMEN: Soft, non-distended. No tenderness to palpation. No rebound or guarding. No masses. RECTAL: Deferred. MUSCULOSKELETAL: Chest examination reveals no tenderness. The back is symmetrical on inspection without obvious abnormality. There is no CVA tenderness to palpation. No joint edema. LOWER EXTREMITIES: Calves are equal size bilaterally and non-tender. No edema. No discoloration. NEURO: Normal sensorium. No sensory or motor deficits noted. SKIN: No rash or jaundice noted. Medical Decision & Procedures ER Provider Diagnostic Interpretation: CT results per statrad and my review. CT ABDOMEN & PELVIS: Comparison 03/29. No evidence for appendicitis. No urinary tract calculi or hydronephrosis seen. Nonspecific perinephric infiltration. No bowel obstruction. Diverticulosis without diverticulitis, small hiatal hernia and other unchanged incidental findings. Laboratory Results 10/19/16 22:35 Red Blood Count 4.63, Mean Corpuscular Volume 89.6, Mean Corpuscular Hemoglobin 30.2, Mean Corpuscular Hemoglobin Concent 33.7, Mean Platelet Volume 9.7, Neutrophils (%) (Auto) 53.4, Lymphocytes (%) (Auto) 32.2, Monocytes (%) (Auto) 9.0, Eosinophils (%) (Auto) 4.9, Basophils (%) (Auto) 0.3, Neutrophils # (Auto) 3.13, Lymphocytes # (Auto) 1.89, Monocytes # (Auto) 0.53, Eosinophils # (Auto) 0.29, Basophils # (Auto) 0.02 10/19/16 22:35 Test 10/19/16 22:20 10/19/16 22:35 Urine Color YELLOW Urine Appearance CLEAR (CLEAR) Urine pH 5.0 (4.5-7.5) Urine Specific [place] 1.030 (1.000-1.030) Urine Protein NEG (NEG) Urine Glucose (UA) NEG (NEG) Urine Ketones NEG (NEG) Urine Occult Blood NEG (NEG) Urine Nitrite NEG (NEG) Urine Bilirubin NEG (NEG) Urine Urobilinogen NEG (NEG) Urine Leukocyte Esterase NEG (NEG) White Blood Count 5.87 K/uL (4.8-10.8) Red Blood Count 4.63 M/uL (4.7-6.1) Hemoglobin 14.0 g/dL (14.0-18.0) Hematocrit 41.5 % (42-52) Mean Corpuscular Volume 89.6 fL (80-100) Mean Corpuscular Hemoglobin 30.2 pg (25-34) Mean Corpuscular Hemoglobin Concent 33.7 g/dl (32-36) Platelet Count 202 K/uL (130-400) Mean Platelet Volume 9.7 fL (7.4-10.4) Neutrophils (%) (Auto) 53.4 % Lymphocytes (%) (Auto) 32.2 % Monocytes (%) (Auto) 9.0 % Eosinophils (%) (Auto) 4.9 % Basophils (%) (Auto) 0.3 % Neutrophils # (Auto) 3.13 K/uL (1.4-6.5) Lymphocytes # (Auto) 1.89 K/uL (1.2-3.4) Monocytes # (Auto) 0.53 K/uL (0.11-0.59) Eosinophils # (Auto) 0.29 K/uL (0-0.5) Basophils # (Auto) 0.02 K/uL (0-0.2) RDW Standard Deviation 44.5 fL (36.4-46.3) RDW Coefficient of Variation 13.5 % (11.5-14.5) Immature Granulocyte % (Auto) 0.2 % Immature Granulocyte # (Auto) 0.01 K/uL (0.00-0.02) Anion Gap 7.0 mmol/L (3-11) Est Creatinine Clear Calc Drug Dose 88.9 ml/min Estimated GFR () 81.2 Estimated GFR (Non- 70.1 BUN/Creatinine Ratio 18.3 (10-20) Calcium Level 9.2 mg/dl (8.5-10.1) Total Bilirubin 0.2 mg/dl (0.2-1) Direct Bilirubin 0.1 mg/dl (0-0.2) Aspartate Amino Transf (AST/SGOT) 27 U/L (15-37) Alanine Aminotransferase (ALT/SGPT) 43 U/L (12-78) Alkaline Phosphatase 103 U/L (45-117) Total Protein 7.1 gm/dl (6.4-8.2) Albumin 3.7 gm/dl (3.4-5.0) Lipase 178 U/L (73-393) Laboratory results reviewed by me Medications Administered Medications (Trade) Dose Ordered Sig/Je Route Start Time Stop Time Status Last Admin Dose Admin Ketorolac Tromethamine (Toradol Inj) 30 mg NOW STAT IV 10/19/16 22:17 10/19/16 22:18 DC 10/19/16 23:00 30 MG ED Course 2210: The patient was evaluated in room B6. A complete history and physical exam was performed. 2226: Ordered Toradol Inj 30 mg IV. 5: I reevaluated the patient. Discussed results and discharge instructions: he verbalized understanding and agreement. The patient is ready for discharge. Medical Decision Differential diagnosis: Etiologies such as muscle strain, appendicitis, diverticulitis, PUD, biliary pathology, UTI, pancreatitis, obstruction, mesenteric ischemia, aortic pathology , infections, inflammatory bowel disease, renal colic, as well as others were entertained. Patient on repeat examination resting in no distress his CT is normal his labs are normal I suspect that he has an abdominal wall strain. Patient was treated with IV Toradol I discussed evaluation with the patient patient's significant other at bedside Medication Reconcilliation Current Medication List: was personally reviewed by me Blood Pressure Screening Patient's blood pressure: Normal blood pressure Impression Primary Impression: Abdominal muscle strain Scribe Attestation The scribe's documentation has been prepared under my direction and personally reviewed by me in its entirety. I confirm that the note above accurately reflects all work, treatment, procedures, and medical decision making performed by me. Departure Information Dispostion Home / Self-Care Referrals Rashid Baxter M.D. (PCP) Patient Instructions ED Strain Abdominal Muscle, My [facility]
[2016-10-20 01:02] VITALS: BP 125/87; PULSE 56; O2SAT 97
--- NOTE | 2016-10-20 06:54 | DIAGNOSTIC IMAGING REPORT ---
ABD/PELVIS NO IV OR ORAL CONT HISTORY: 50 years-old Male pain acute right-sided abdominal pain. Initial exam. COMPARISON: CT abdomen and pelvis 03/29/2016. TECHNIQUE: Multiple axial CT images of the abdomen and pelvis were obtained without the use of contrast. A dose lowering technique was used consistent with the principals of MAN[place]. FINDINGS: There is minimal dependent bibasilar atelectasis with probable subsegmental pleural parenchymal scarring of the inferior segment lingula. There is no pneumoperitoneum. Imaged inferior cardiac chambers are unremarkable with coronary arterial disease. Liver, spleen, gallbladder and adrenal glands appear to be within normal limits. There is moderate diffuse pancreatic atrophy. Nonspecific symmetric stranding is seen within the bilateral perinephric spaces, unchanged and nonspecific. Punctate nonobstructing calculus is seen within the interpolar left kidney on image 196. No hydronephrosis. Urinary bladder is contracted. Ureters are unremarkable. Prostate is mildly prominent. The abdominal aorta is normal in course and caliber without significant atherosclerotic plaquing. There is no bulky adenopathy. Small sliding type hiatal hernia. No bowel obstruction. Colonic diverticulosis without diverticulitis. Appendix is normal. There is a small right paramedian ventral abdominal wall hernia which is supraumbilical and fat filled, diastases 1.2 cm. Small additional hernia is seen just superiorly, 7 mm diastases and fat filled. Soft tissues are otherwise unremarkable. Bones appear intact. Multilevel discogenic degenerative changes are noted within the lower thoracic and a lesser extent lumbar spine. IMPRESSION: 1. No acute intra-abdominal or intrapelvic abnormality identified. Normal appendix. 2. Colonic diverticulosis without diverticulitis. 3. Punctate nonobstructing calculus of the interpolar left kidney. 4. Small fat filled supra-umbilical ventral abdominal wall hernia. 5. Small sliding-type hiatal hernia. The above report was generated using voice recognition software. It may contain grammatical, syntax or spelling errors. Electronically signed by: Nahun Meraz M.D. 10/20/2016 6:53 AM Dictated Date/Time: 10/20/2016 6:47 AM
== END 2016-10-20 01:02 | disposition home or self-care (01) ==
LOC: C.EDB 21:57
DX: S39.011A Strain of muscle, fascia and tendon of abdomen, initial encounter (principal); X58.XXXA Exposure to other specified factors, initial encounter; I10 Essential (primary) hypertension; F17.200 Nicotine dependence, unspecified, uncomplicated; Z87.81 Personal history of (healed) traumatic fracture; Z79.82 Long term (current) use of aspirin; Z91.041 Radiographic dye allergy status; Z83.3 Family history of diabetes mellitus; Z82.49 Family history of ischemic heart disease and other diseases of the circulatory system

== ENCOUNTER 2016-11-13 23:04 | Inpatient (IN) | payer OTHER ==
[~2016-11-13] VITALS: Ht 182.9 cm; Wt 96.5 kg
[~2016-11-13 23:04] MED LIST changes: -CEPH500C2 PO; +CHOL1000 PO; +MULT-506 PO; -SULF800T23 PO
[2016-11-13] MEDS ORDERED: SODIUM CHLORIDE 0.9% 1000ML 1,000 ML IV SCH (23:07)
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
[2016-11-13 23:26] LABS: BASO % 0.3 %; BASO ABS # 0.02 K/uL (0-0.2); COMPLETE YES; EOS % 3.8 %; HEMATOCRIT 43.3 % (42-52); IG% 0.3 %; LYMPH ABS # 1.83 K/uL (1.2-3.4); MEAN CELL VOLUME 87.7 fL (80-100); MEAN CORPUSCULAR HEMOGLOBIN 32.4 pg (25-34); MEAN PLATELET VOLUME 9.8 fL (7.4-10.4); MONO % 8.7 %; NEUT % 61.9 %; PLATELET COUNT 214 K/uL (130-400); RED BLOOD COUNT 4.94 M/uL (4.7-6.1); WHITE BLOOD COUNT 7.32 K/uL (4.8-10.8)
[2016-11-13 23:56] LABS: BLOOD UREA NITROGEN 21 mg/dl (7-18); BUN/CREATININE RATIO 14.7 (10-20); CALCIUM 8.6 mg/dl (8.5-10.1); CARBON DIOXIDE 24 mmol/L (21-32); CHLORIDE 103 mmol/L (98-107)
[2016-11-13 23:57] LABS: INR 0.9 (0.9-1.1); PROTHROMBIN TIME (PATIENT) 9.8 SECONDS (9.0-12.0)
[2016-11-14] VITALS (10 sets, daily range): BP systolic 107–147; BP diastolic 73–95; PULSE 52–67; TEMP 36.5–36.8; O2SAT 96–98; Ht 182.9 cm; Wt 96.5 kg
[2016-11-14 00:12] LABS: GLUCOSE 107 mg/dl (70-99); POTASSIUM 3.9 mmol/L (3.5-5.1); SODIUM 141 mmol/L (136-145)
[2016-11-14 00:20] LABS: CKMB/CK RATIO 0.4 (0-3.0)
[2016-11-14] MEDS ORDERED: POLYETHYLENE (MIRALAX) 17 GM PACK PO PRN (01:45)
[2016-11-14] MEDS ORDERED: ALUMINUM/MAGNESIUM/SIMETH (MAALOX MAX) 30 ML UDC PO PRN (01:45)
[2016-11-14] MEDS ORDERED: PHARMACIST DISCHARGE MED REC CONSULT PRN (01:45)
[2016-11-14] MEDS ORDERED: ACETAMINOPHEN 325 MG TAB PO PRN (01:45)
[2016-11-14] MEDS ORDERED: MAGNESIUM HYDROXIDE SUSP 30 ML UDC PO PRN (01:45)
[2016-11-14] MEDS ORDERED: ONDANSETRON INJ 2 MG/ML 2 ML VIAL IV PRN (01:45)
--- NOTE | 2016-11-14 02:08 | History and Physical ---
History & Physical Date & Time of Service: Nov 14, 2016 at 01:48 Chief Complaint: Rt Side Numb Primary Care Physician: Rashid Baxter M.D. History of Present Illness Source: patient, spouse 50 year old male with history of HTN, HLD and concussion, who presents with sudden onset neurological symptoms. The patient states that he was sitting at home 3 hours ago when he suddenly began experiencing a numbness in his left templar area as well as numbness and weakness to the top of his right foot. Prior to he states that "It feels like something popped". This has never happened to him before. He also notes having bilateral blurred vision and a floater in his left eye, but no double vision. He denies any loss of hearing, tinnitus or vertigo. He denies dysphagia, dysphasia or difficulty with comprehension. He denies any weakness or sensory changes in the upper extremities. He states that the last thing he recalls is telling his girlfriend about his symptoms and trying to get his shoes on. His girlfriend states that he got in the car with her and she drove to [facility] ED where it took 5 people to help him out of the car and into the wheelchair. He currently states that the numbness is improving but that he has a 4/10 "discomfort" on the right side of his face. He describes the discomfort as under the left and goes to the left anglican. He states that when they evaluated him earlier, lifting his right leg makes the discomfort worse. In the past week he does note that he had 2 brief episode of floaters in his left eye. 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 He also notes coming to the ED in June for a bug bite. He was treated at that time for a cellulitis related to the bite. On arrival in the ED, a stroke alert was called and the patient was not a candidate for tPA Past Medical/Surgical History Medical Problems: (1) HTN (hypertension) Status: Chronic Hyperlipidemia (2) Sinusitis Status: Resolved Surgical Problems: (1) H/O hernia repair Status: Resolved - Hiatal Hernia repain - Sinus surgery - Right Molar extraction Family History Diabetes mellitus Hypertension Hypertension Social History Smoking Status: Light Tobacco Smoker (smokes once per month) Smokeless Tobacco Use: No Alcohol Use: none Drug Use: none Marital Status: in relationship Housing status: lives with significant other 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) Multi-Drug Resistant Organisms History of MDRO: No Allergies Coded Allergies: Iodinated Diagnostic Agents (Unverified Allergy, Unknown, ITCHY, 11/13/16) Home Medications Scheduled Aspirin (Aspirin Low Dose), 81 MG PO QAM Atorvastatin (Lipitor), 10 MG PO QAM Cholecalciferol (Vitamin D3), 2,000 INTER.UNIT PO DAILY Lisinopril (Prinivil), 5 MG PO QAM Multivitamin (Multivitamin), 1 TAB PO DAILY Review of Systems Constitutional: No fever, No chills, No sweats Eyes: No redness, No discharge, No diplopia ENT: No hearing loss, No nasal symptoms, No sore throat, No tinnitus Respiratory: No cough, No sputum, No wheezing Cardiovascular: No chest pain, No claudication, No palpitations Abdomen: No pain, No nausea, No vomiting, No diarrhea, No constipation Genitourinary - Male: No dysuria, No urinary frequency Psychiatric: No depression symptoms, No anxiety, No insomnia Endocrine: No fatigue, No excessive thirst Hematologic / Lymphatic: No abnormal bleeding/bruising, No swollen lymph nodes , No night sweats Integumentary: No rash, No itch, No new/changing skin lesions, No color change Allergic / Immunologic: No food allergies, No hives Physical Exam Vital Signs Date Time Temp Pulse Resp B/P (MAP) Pulse Ox O2 Delivery O2 Flow Rate FiO2 11/14/16 01:30 68 20 155/109 96 Room Air 11/14/16 00:30 68 18 156/111 98 Room Air 11/13/16 23:56 69 18 163/118 98 Room Air 11/13/16 23:35 98 Room Air 11/13/16 23:31 81 11/13/16 23:27 36.9 72 18 161/108 98 Room Air General Appearance: WD/WN, no apparent distress, + obese Head: normocephalic, atraumatic Eyes: normal inspection, PERRL, EOMI ENT: hearing grossly normal, pharynx normal Neck: supple, no adenopathy, no JVD Respiratory/Chest: lungs clear, no respiratory distress Cardiovascular: regular rate, rhythm, no edema, no gallop Abdomen/GI: normal bowel sounds, non tender, soft Back: no CVA tenderness, no muscle spasm Extremities/Musculoskelatal: no calf tenderness, no pedal edema Neurologic/Psych: alert, normal mood/affect, oriented x 3, + motor weakness (5/ 5 strength in upper extremitis; normal finger nose; Left lower extremity 5/5 strength; Right lower extremity 4/5 in the hip, knee and ankle), + pertinent finding (numbness in left templar area; negative pronator drift) Skin: normal color, warm/dry, no rash Lymphatic: no adenopathy Diagnostics Laboratory Results Results Past 24 Hours Test 11/13/16 23:14 11/13/16 23:43 11/14/16 01:37 11/14/16 01:42 Range/Units White Blood Count 7.32 4.8-10.8 K/uL Red Blood Count 4.94 4.7-6.1 M/uL Hemoglobin 16.0 14.0-18.0 g/dL Hematocrit 43.3 42-52 % Mean Corpuscular Volume 87.7 80-100 fL Mean Corpuscular Hemoglobin 32.4 25-34 pg Mean Corpuscular Hemoglobin Concent 37.0 32-36 g/dl Platelet Count 214 130-400 K/uL Mean Platelet Volume 9.8 7.4-10.4 fL Neutrophils (%) (Auto) 61.9 % Lymphocytes (%) (Auto) 25.0 % Monocytes (%) (Auto) 8.7 % Eosinophils (%) (Auto) 3.8 % Basophils (%) (Auto) 0.3 % Neutrophils # (Auto) 4.53 1.4-6.5 K/uL Lymphocytes # (Auto) 1.83 1.2-3.4 K/uL Monocytes # (Auto) 0.64 0.11-0.59 K/uL Eosinophils # (Auto) 0.28 0-0.5 K/uL Basophils # (Auto) 0.02 0-0.2 K/uL RDW Standard Deviation 41.7 36.4-46.3 fL RDW Coefficient of Variation 13.0 11.5-14.5 % Immature Granulocyte % (Auto) 0.3 % Immature Granulocyte # (Auto) 0.02 0.00-0.02 K/uL Nucleated RBC Absolute Count (auto) 0.05 0-0 K/uL Nucleated Red Blood Cells % 0.7 % Prothrombin Time 9.8 9.0-12.0 SECONDS Prothromb Time International Ratio 0.9 0.9-1.1 Activated Partial Thromboplast Time 26.3 21.0-31.0 SECONDS Partial Thromboplastin Ratio 1.0 Sodium Level 141 136-145 mmol/L Potassium Level 3.9 3.5-5.1 mmol/L Chloride Level 103 98-107 mmol/L Carbon Dioxide Level 24 21-32 mmol/L Anion Gap 14.0 3-11 mmol/L Blood Urea Nitrogen 21 7-18 mg/dl Creatinine 1.40 0.60-1.40 mg/dl Est Creatinine Clear Calc Drug Dose 77.0 ml/min Estimated GFR () 67.4 Estimated GFR (Non- 58.2 BUN/Creatinine Ratio 14.7 10-20 Random Glucose 107 70-99 mg/dl Calcium Level 8.6 8.5-10.1 mg/dl Total Creatine Kinase 159 39-308 U/L Creatine Kinase MB 0.7 0.5-3.6 ng/ml Creatine Kinase MB Ratio 0.4 0-3.0 Troponin I < 0.015 0-0.045 ng/ml Chemistry Specimen Hemolysis Bedside Glucose 99 70-99 mg/dl Test 11/14/16 01:44 Range/Units Diagnostic Radiology CT Brain: No abnormalities EKG NSR Impression Assessment and Plan 50 year old male with sudden onset left facial numbness and contralateral left foot weakness and numbness. He is being evaluated for CVA. He does not meet criteria for tPA. He has risk factors for CVA including HTN and HLD. However, he has a history of TBI as well. He was bit by bug in June but Lyme testing was done too close to bite to be reliable, as such worth considering as an alternative etiology. In addition, given visual disturbance with sensory changes to the anglican, I would also consider GCA in the differential. Our plan is as follows: Left anglican numbness/discomfort + Right food numbness and weakness - CT brain normal - Not candidate for tPA\\ - Continue with CVA work-up EKG: NSR --> monitor in telemetry Echocardiogram in AM MRI w/ and w/out contrast MR angiograms; will have orbital x-rays first to confirm no metal; may need to convert to CT angiograms as needed Consult neurology for further recommendations - Consider alternative etiologies GCA: ESR and CRP ordered Hx of insect bite in June without treatment for Lyme: Order Lyme serologies Hx of TBI in 2016; ?Post-TBI symptoms? - Continue ASA 81 - Increase Atorvastatin from 10 --> 40 mg daily - Continue Lisinopril to treat HTN - Check HbA1c with AM labs Hypertension - Continue Lisinopril Hypercholesterolemia - Continue Atorvastatin; increase dose to 40 mg daily DVT Prophylaxis - SCD Knee, ZACARIAS Hose - Lovenox 40 mg s.c. daily Code Status - Level I Full Code Disposition - Telemetry - OT and PT evaluations Resident Physician Supervision Note: Pt seen/examined independently. I discussed the case with the resident and agree with the findings and plan as documented in the note. Any exceptions or clarifications are listed here: 50 y/o M Hx HTN, HPL, TBA - acute onset RONQUILLO , L facial numbness , numbness and weakness in R foot - visual disturbance on R initially Stroke alert called initially - evaluated and ruled out for TPA OE AAO x 3 S1,2 R CTAB NT, ND, BS+ No CCE Neuro exam reveals persistent weakness of RLE - numbness to light touch present P: Admitted with CVA protocol to telemetry Placed on ASA - Statin dose increased Pt is pending MRI/MRA as initial CT neg - will need XR to r/o metal fragment in eyes due to previous occupation Documented By: Gaurav Davalos Level of Care Telemetry Resuscitation Status FULL RESUSCITATION VTE Prophylaxis VTE Risk Assessment Done? Y/N: Yes Risk Level: Moderate Given or contraindicated: Enoxaparin (Lovenox)SQ
--- NOTE | 2016-11-14 02:16 | DIAGNOSTIC IMAGING REPORT ---
ORBITS FOR MRI HISTORY: 50 years-old Male eval for metal clearance for MRI. COMPARISON: CT head same day TECHNIQUE: Three views of the orbits. FINDINGS: No opaque foreign body identified. Mild left maxillary sinus disease. No acute facial bone fracture or dislocation identified. IMPRESSION: No opaque foreign body. The above report was generated using voice recognition software. It may contain grammatical, syntax or spelling errors. Electronically signed by: Nahun Meraz M.D. 11/14/2016 2:15 AM Dictated Date/Time: 11/14/2016 2:12 AM
[2016-11-14 02:21] LABS: LYME DISEASE AB IGG NEG (NEG); LYME DISEASE AB IGM NEG (NEG)
[2016-11-14 02:56] LABS: C-REACTIVE PROTEIN < 0.29 mg/dl (0-0.29)
[2016-11-14] MEDS ORDERED: GADAVIST IV PRN (04:30)
--- NOTE | 2016-11-14 07:15 | DIAGNOSTIC IMAGING REPORT ---
MRI OF THE BRAIN COMBO CLINICAL HISTORY: Left facial numbness. Change in mental status. Chronic right lower extremity weakness. COMPARISON STUDY: CT of the brain dated 11/13/2016. TECHNIQUE: MRI of the brain was performed utilizing various T1 and T2-weighted sequences in the axial, sagittal, and coronal planes. Contrast-enhanced sequences were acquired following the administration of 9.5 cc of Gadavist. The examination is modestly degraded by motion artifact. FINDINGS: Brain parenchyma: The brain parenchyma is normal in appearance. There is no hemorrhage or mass effect. There is no restricted diffusion to suggest acute ischemia. No enhancing mass lesion is identified on the postcontrast images. Jacques-white matter differentiation is preserved. No extra-axial fluid collection is seen. The cerebellar tonsils are normal in configuration. Ventricles, sulci, and cisterns: Normal in configuration. Pituitary and sella: Unremarkable. Intracranial vasculature: Normal flow voids are maintained at the skull base. Orbits: The bony orbits are grossly intact. Orbital contents are normal in appearance. Sinuses and mastoids: Mucosal thickening is seen within the maxillary antra, the ethmoid sinuses, and the frontal sinuses. The mastoid air cells are clear. Calvarium: Unremarkable. Cervical cord: Partially visualized cervical spinal cord is normal in morphology and signal intensity. IMPRESSION: No acute intracranial abnormality. Electronically signed by: Bebeto Palmer M.D. 11/14/2016 7:14 AM Dictated Date/Time: 11/14/2016 7:10 AM
--- NOTE | 2016-11-14 07:15 | DIAGNOSTIC IMAGING REPORT ---
HEAD CT NONCONTRAST CT DOSE: 614.27 mGy.cm HISTORY: Stroke TECHNIQUE: Multiaxial CT images of the head were performed without the use of intravenous contrast. Automated exposure control was utilized for this study. A dose lowering technique was utilized adhering to the principles of ALARA. Comparison: Head CT 09/06/2015. Findings: Small retention cyst within the left maxillary sinus and mild mucosal thickening within the ethmoid air cells. The mastoid air cells are clear. The calvarium and skull base are intact. The ventricles and sulci are within normal limits. There is no mass, hematoma, midline shift, or acute infarct. Impression: No acute intracranial abnormality. Electronically signed by: Silverio Yepez M.D. 11/14/2016 7:13 AM Dictated Date/Time: 11/14/2016 7:12 AM
--- NOTE | 2016-11-14 07:17 | DIAGNOSTIC IMAGING REPORT ---
Brain MRA HISTORY: left face numbness/pain and right leg weakness/confusion TECHNIQUE: 3-D [id number] MRA of the brain was performed without contrast. COMPARISON STUDY: None. FINDINGS: Visualized intracranial internal carotid arteries, distal vertebral arteries, and basilar artery are widely patent. There is no significant stenosis, occlusion, or aneurysm seen within the bilateral ACAs, MCAs, or mercantile agent. IMPRESSION: No significant stenosis, occlusion, or aneurysm within the [place]. Electronically signed by: Silverio Yepez M.D. 11/14/2016 7:16 AM Dictated Date/Time: 11/14/2016 7:14 AM
--- NOTE | 2016-11-14 07:24 | DIAGNOSTIC IMAGING REPORT ---
MRA NECK COMBO CLINICAL HISTORY: 50 years-old Male presenting with left-sided facial numbness and pain, incoherent speech amount blurred vision, right leg numbness and weakness, history of concussion. TECHNIQUE: MR angiography of the neck was performed before and after the administration of intravenous contrast. 3-D volumetric and/or maximum intensity projection (MIP) images were subsequently reconstructed for review. IV contrast: 9.5 mL of Gadavist. Stenosis measurements were based on NASCET-like criteria. COMPARISON: None. FINDINGS: Tortuosity of the cervical portion of the internal carotid artery suggest chronic hypertension. Bilateral common and internal carotid arteries patent. Codominant vertebral arteries patent. Four-vessel aortic arch. Patent origins of the innominate, left common carotid, left vertebral, and left subclavian arteries. Limited dilatation of the intracranial vasculature is unremarkable. IMPRESSION: 1. No significant stenosis, aneurysm, or focal vessel occlusion. Electronically signed by: Rashid Langley M.D. 11/14/2016 7:22 AM Dictated Date/Time: 11/14/2016 7:17 AM
[2016-11-14] MEDS: CHOLECALCIFEROL 1000 INTER.UNIT TAB PO SCH (08:45)
[2016-11-14] MEDS: ENOXAPARIN 40 MG/0.4 ML SYR SC SCH (08:46)
[2016-11-14] MEDS: MULTIVITAMIN TAB PO SCH (08:46)
[2016-11-14] MEDS: ATORVASTATIN 40 MG TAB PO SCH (08:46)
[2016-11-14] MEDS ORDERED: LISINOPRIL 5 MG TAB PO SCH (09:00)
[2016-11-14] MEDS ORDERED: ASPIRIN 325 MG ECTAB PO SCH (09:00)
[2016-11-14] MEDS ORDERED: ASPIRIN 81 MG ECTAB PO SCH (09:00)
--- NOTE | 2016-11-14 09:05 | Neurology Consultation ---
Neurology Consultation Date of Consultation: Nov 14, 2016. Attending Physician: Davy Jacobs D.O. Primary Care Physician: Rashid Baxter M.D. Reason for Consultation: Patient is a 50-year-old, who I was asked to see at the request of doctors Regina and Susannah, for neurologic consultation regarding new onset left-sided headache and numbness with right lower extremity weakness and numbness. History of Present Illness Source: patient, caregiver, clinic records, hospital records In October of 2014, the patient was at work, at [employer], and was hit in the head by a large metal "broussard shaker" tray. He was knocked to the ground and had a brief loss of consciousness for approximately 1 minute. Over the ensuing months he had intermittent headaches, tinnitus, blurry vision, and significant dizziness and balance problems. He had memory and concentration problems as well. He missed 4 5 months of work and then went back to work. 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 He saw Emelia Jeffrey PA-C, in Neurology in October of 2014. He made significant improvements in his post concussive syndrome symptoms. Unfortunately, he still has occasional blurry vision, occasional balance issues, and occasional cognitive issues. Interestingly, he has episodes where he is very sleepy for a whole day perhaps once per month. This is been going on since the concussion. In August of 2015, and the patient had posterior cervical spine and left shoulder pain with pain radiating into the left arm. MRI of the cervical spine was largely unremarkable. In October of 2015, EMG and nerve conduction studies of the left upper extremity revealed a very mild left C8 radiculopathy. Left rotator cuff injury was diagnosed as well. He saw Dr. Lala for this in the summer and fall of 2015. She had a nice response to physical therapy at [facility] and has not been seen in Neurology since November of 2015. He has no neck or left upper extremity symptoms currently. Patient was doing very well this summer with minimal symptoms. On November 12, he had 1 of those very sleepy days where he did do much of anything but sleep and mild around. He felt well otherwise and was not ill. She got up in the morning of November 13 feeling fairly well. Around 10 30 in the morning she went out with friends [place]. He got home around 6:00 p.m.. Again, he was doing well all day. Ate supper without incident and was lounge on the couch watching TV feeling well when around 2200 hours he got up to go to the bathroom. He felt a pull or pop sensation on the left side of his head above the ear. It was a mild uncomfortable pain. He went to the bathroom and got up feeling lightheaded. He did not lose consciousness. He noted that the left side of his head in the gnosticism area was numb. He also noted that his vision was blurry bilaterally and he had some floaters in his eye. He felt that his right foot was numb and weak as well and he was not ambulating correctly. He was brought to the emergency room but has no recall from the time before he left the house until in the ER with people helping him. Apparently, he was not responsive and his girlfriend had to enlist the help of 2 people to get him out of the car to take him into the emergency room. He arrived at 11:27 p.m. two seven hours on November 13 with a temperature of 36.9, pulse 72, respiratory rate 18, blood pressure 161/108, and O2 saturation 98%. He was experiencing some dull pain and pulling in his left temporal area and side of the head, blurry vision, numbness and weakness of the right foot, and some fatigue. He was noted to have slurred speech and was not ambulating well. CT scan of the head was unremarkable. The Tele stroke was initiated and he was evaluated by Dr. Barrientos with NIH stroke scale of 6. It was decided that he should not get tPA. She recommended MRI of the brain and MR angiography of the head and neck. ESR was 12, CBC was normal. Chem profile was unremarkable with a hemoglobin A1c of 5.4. CK was normal at 159. Lyme antibody titer was negative. MRI of the brain was unremarkable with no acute stroke or old ischemic changes. MR angiography of the head and the neck were unremarkable with no significant stenoses or vascular anomalies. This morning, the patient feels much improved but still has some residual left side of his head numbness in uncomfortable feelings. He has slight blurry vision and has some numbness in his toes on the right with a little bit of weakness of his right foot. He denies any numbness or pain on his forehead, cheek, or jaw. The right arm and the left arm and leg are asymptomatic and there is no chest pain or abdominal symptoms. He has no double vision. Past Medical/Surgical History Medical Problems: (1) Abdominal muscle strain Status: Acute (2) Abdominal pain Status: Acute (3) Altered mental status Status: Acute (4) Cardiomegaly Status: Acute (5) Cervical radiculopathy Status: Acute (6) Chest pain Status: Acute (7) Cholecystitis Status: Acute (8) Colitis Status: Acute (9) Constipation Status: Acute (10) Dizziness Status: Acute (11) Fever Status: Acute (12) Incarcerated umbilical hernia Status: Acute (13) Infected insect bite of buttock Status: Acute (14) Left sided abdominal pain Status: Acute (15) Left sided abdominal pain Status: Acute (16) LUQ abdominal pain Status: Acute (17) Myalgia Status: Acute (18) Right knee injury Status: Acute (19) Right leg weakness Status: Acute (20) Umbilical hernia Status: Acute Hypertension Dyslipidemia Vitamin-D deficiency History of trigeminal neuralgia in the past and I have no details regarding this. Postconcussion with post concussive symptomatology October 2014, largely resolved. Post left C8 radiculopathy with cervical pain 1 year ago, currently resolved. Post wisdom teeth removal Umbilical hernia repair in 2013 with revision, abscess draining, and ventral hernia repair in February 2016. History of sinus surgery 2009 Colon Polypectomy Family History Father age 72 of a lung condition. He had hypertension and diabetes. 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 He occasionally chews tobacco and times that he does chew he will go through a can in about 2 weeks. This is mostly during hunting season. 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) Allergies Coded Allergies: Iodinated Diagnostic Agents (Unverified Allergy, Unknown, ITCHY, 11/13/16) Current Inpatient Medications Current Inpatient Medications Medications (Trade) Dose Ordered Sig/Je Route Start Time Stop Time Status Last Admin Dose Admin Miscellaneous Information (Pharmacist Discharge Med Rec Consult) 1 ea UD PRN N/A 11/14/16 01:45 12/14/16 01:44 Enoxaparin Sodium (Lovenox Inj) 40 mg Q24H SC 11/14/16 09:00 12/14/16 08:59 Acetaminophen (Tylenol Tab) 650 mg Q4H PRN PO 11/14/16 01:45 12/14/16 01:44 Al Hydrox/Mg Hydrox/Simethicone (Maalox Max Susp) 15 ml Q4H PRN PO 11/14/16 01:45 12/14/16 01:44 Magnesium Hydroxide (Milk Of Magnesia Susp) 30 ml Q12H PRN PO 11/14/16 01:45 12/14/16 01:44 Ondansetron HCl (Zofran Inj) 4 mg Q6H PRN IV 11/14/16 01:45 12/14/16 01:44 Polyethylene (Miralax Powder Packet) 17 gm DAILY PRN PO 11/14/16 01:45 12/14/16 01:44 Cholecalciferol (Vitamin D Tab) 2,000 inter.unit DAILY PO 11/14/16 09:00 12/14/16 08:59 Lisinopril (Zestril Tab) 5 mg QAM PO 11/14/16 09:00 12/14/16 08:59 Multivitamins (Multivitamin Tab) 1 tab DAILY PO 11/14/16 09:00 12/14/16 08:59 Atorvastatin Calcium (Lipitor Tab) 40 mg QAM PO 11/14/16 09:00 12/14/16 08:59 Aspirin (Ecotrin Tab) 325 mg QAM PO 11/14/16 09:00 12/14/16 08:59 Gadobutrol (Gadavist) 9.5 mmol UD PRN IV 11/14/16 04:30 11/18/16 04:29 Review of Systems Constitutional: + fatigue, No fever, No weakness Eyes: + worsening of vision, No diplopia ENT: No hearing loss, No tinnitus, No trouble swallowing Respiratory: No cough, No shortness of breath Cardiovascular: No chest pain, No palpitations Abdomen: No pain, No nausea Musculoskeletal: No joint pain, No muscle pain Genitourinary - Male: No dysuria, No urinary incontinence Neurologic: + weakness, + numbness/tingling, + balance problems, No memory loss , No vertigo Psychiatric: No depression symptoms, No anxiety Endocrine: + fatigue Hematologic / Lymphatic: No abnormal bleeding/bruising Integumentary: No rash Allergic / Immunologic: No hives Physical Exam Vital Signs (Past 24 Hrs): Date Time Temp Pulse Resp B/P (MAP) Pulse Ox O2 Delivery O2 Flow Rate FiO2 11/14/16 08:32 36.6 57 18 132/90 (104) 96 Room Air 11/14/16 04:06 36.6 55 20 147/95 97 Room Air 11/14/16 01:55 66 20 152/112 96 11/14/16 01:30 68 20 155/109 96 Room Air 11/14/16 00:30 68 18 156/111 98 Room Air 11/13/16 23:56 69 18 163/118 98 Room Air 11/13/16 23:35 98 Room Air 11/13/16 23:31 81 11/13/16 23:27 36.9 72 18 161/108 98 Room Air The patient is right-handed. The patient is awake and alert. Speech is normal without aphasia or dysarthria. Mentation and thought processes are intact with orientation and normal fund of knowledge. Mood seems mildly down and affect is mildly flat but otherwise he is pleasant and cooperative. Appearance and grooming are normal. The discs are sharp with positive venous pulsations. There are no exudates, hemorrhages, or blood vessel changes seen. Pupils are 4mm bilaterally and reactive to light. Extraocular eye muscles are intact without nystagmus. Visual acuity and visual granado seem normal grossly to confrontation. There are no deficits to sensation of the face bilaterally. However, he has some decreased sensation to pin and touch around the left gnosticism area over the ear on the side of the head. Corneal reflexes are positive bilaterally. Facial strength and symmetry is normal bilaterally. Hearing seems intact grossly to voice and finger rub. Palate moves well without asymmetry. There is normal sternocleidomastoid and trapezius strength bilaterally. Tongue is midline with good strength bilaterally. Neck is with full range of motion without discomfort. There are no cervical bruits. There are no cranial or ocular bruits. Heart is without murmur. Cervical, thoracic, and lumbar spine are nontender to palpation. Gait is narrow based with positive arm swing and he limps favoring the right foot. The stance is reasonable eyes open. With outstretched arms there is no drift. There are no resting, postural, or action tremors. There is no ataxia with [id number] testing. There is good facility in the hands. There are no abnormal involuntary movements noted. Motor strength is 5/5 diffusely in the arms bilaterally including deltoids, biceps, brachioradialis, wrist flexors and extensors, field services analyst, and intrinsic hand muscles. Motor strength is 5/5 diffusely in the legs bilaterally including hip flexors, quadriceps, hamstring, gastrocnemius, tibialis anterior, tibialis posterior, and peroneii muscles bilaterally. He does have some mild giveaway weakness at the foot on the right. Toe extensors are normal and there is good bulk in the extensor digitorum brevis muscle bilaterally. The limbs have good tone without rigidity or spasticity, and there is no atrophy noted. Muscle bulk is normal, there is no tenderness, no myotonia noted to percussion, and no fasciculations seen. Sensory examination reveals some nonspecific decreased sensation to pain and touch in the right foot to the ankle. Reflexes are 1/4 in the biceps, triceps, brachioradialis, quadriceps, and Achilles tendons bilaterally. Toes are downgoing with plantar stimulation bilaterally. Peripheral pulses are present and of normal quality distally in all four limbs. There is no peripheral edema noted. Laboratory Results Past 24 Hours: 11/13/16 23:14 Red Blood Count 4.94, Mean Corpuscular Volume 87.7, Mean Corpuscular Hemoglobin 32.4, Mean Corpuscular Hemoglobin Concent 37.0, Mean Platelet Volume 9.8, Neutrophils (%) (Auto) 61.9, Lymphocytes (%) (Auto) 25.0, Monocytes (%) (Auto) 8.7, Eosinophils (%) (Auto) 3.8, Basophils (%) (Auto) 0.3, Neutrophils # (Auto) 4.53, Lymphocytes # (Auto) 1.83, Monocytes # (Auto) 0.64, Eosinophils # (Auto) 0.28, Basophils # (Auto) 0.02 11/13/16 23:14 Test 11/13/16 23:14 11/13/16 23:43 White Blood Count 7.32 K/uL (4.8-10.8) Red Blood Count 4.94 M/uL (4.7-6.1) Hemoglobin 16.0 g/dL (14.0-18.0) Hematocrit 43.3 % (42-52) Mean Corpuscular Volume 87.7 fL (80-100) Mean Corpuscular Hemoglobin 32.4 pg (25-34) Mean Corpuscular Hemoglobin Concent 37.0 g/dl (32-36) Platelet Count 214 K/uL (130-400) Mean Platelet Volume 9.8 fL (7.4-10.4) Neutrophils (%) (Auto) 61.9 % Lymphocytes (%) (Auto) 25.0 % Monocytes (%) (Auto) 8.7 % Eosinophils (%) (Auto) 3.8 % Basophils (%) (Auto) 0.3 % Neutrophils # (Auto) 4.53 K/uL (1.4-6.5) Lymphocytes # (Auto) 1.83 K/uL (1.2-3.4) Monocytes # (Auto) 0.64 K/uL (0.11-0.59) Eosinophils # (Auto) 0.28 K/uL (0-0.5) Basophils # (Auto) 0.02 K/uL (0-0.2) RDW Standard Deviation 41.7 fL (36.4-46.3) RDW Coefficient of Variation 13.0 % (11.5-14.5) Immature Granulocyte % (Auto) 0.3 % Immature Granulocyte # (Auto) 0.02 K/uL (0.00-0.02) Nucleated RBC Absolute Count (auto) 0.05 K/uL (0-0) Nucleated Red Blood Cells % 0.7 % Erythrocyte Sedimentation Rate 12 mm/hr (0-14) Prothrombin Time 9.8 SECONDS (9.0-12.0) Prothromb Time International Ratio 0.9 (0.9-1.1) Activated Partial Thromboplast Time 26.3 SECONDS (21.0-31.0) Partial Thromboplastin Ratio 1.0 Anion Gap 14.0 mmol/L (3-11) Est Creatinine Clear Calc Drug Dose 77.0 ml/min Estimated GFR () 67.4 Estimated GFR (Non- 58.2 BUN/Creatinine Ratio 14.7 (10-20) Estimated Average Glucose 108 mg/dl Hemoglobin A1c 5.4 % (4.5-5.6) Calcium Level 8.6 mg/dl (8.5-10.1) Total Creatine Kinase 159 U/L (39-308) Creatine Kinase MB 0.7 ng/ml (0.5-3.6) Creatine Kinase MB Ratio 0.4 (0-3.0) Troponin I < 0.015 ng/ml (0-0.045) C-Reactive Protein < 0.29 mg/dl (0-0.29) Chemistry Specimen Hemolysis Bedside Glucose 99 mg/dl (70-99) Imaging MRI OF THE BRAIN COMBO CLINICAL HISTORY: Left facial numbness. Change in mental status. Chronic right lower extremity weakness. COMPARISON STUDY: CT of the brain dated 11/13/2016. TECHNIQUE: MRI of the brain was performed utilizing various T1 and T2-weighted sequences in the axial, sagittal, and coronal planes. Contrast-enhanced sequences were acquired following the administration of 9.5 cc of Gadavist. The examination is modestly degraded by motion artifact. FINDINGS: Brain parenchyma: The brain parenchyma is normal in appearance. There is no hemorrhage or mass effect. There is no restricted diffusion to suggest acute ischemia. No enhancing mass lesion is identified on the postcontrast images. Jacques-white matter differentiation is preserved. No extra-axial fluid collection is seen. The cerebellar tonsils are normal in configuration. Ventricles, sulci, and cisterns: Normal in configuration. Pituitary and sella: Unremarkable. Intracranial vasculature: Normal flow voids are maintained at the skull base. Orbits: The bony orbits are grossly intact. Orbital contents are normal in appearance. Sinuses and mastoids: Mucosal thickening is seen within the maxillary antra, the ethmoid sinuses, and the frontal sinuses. The mastoid air cells are clear. Calvarium: Unremarkable. Cervical cord: Partially visualized cervical spinal cord is normal in morphology and signal intensity. IMPRESSION: No acute intracranial abnormality. Electronically signed by: Bebeto Palmer M.D. 11/14/2016 7:14 AM Impression 1. Acute onset left-sided head pain and dysesthesias, blurry vision bilaterally , right foot weakness and numbness, and fatigue with episode of altered responsiveness. Currently his neurologic examination is unremarkable with no objective focal abnormalities, meningeal signs, or encephalopathy. The giveaway weakness seen in the right foot is not pathologic. MRI of the brain is unremarkable with no stroke or other abnormalities. For angiography of the head and neck were unremarkable with no significant stenosis. Clinically he is much improved subjectively although he still has some residual symptoms as noted above. Etiology of his symptomatology is likely secondary to acute hypertension. Hypertension can create acute encephalopathy, dizziness, blurry vision, headache , with dysesthesias and can imitate a stroke with focal subjective symptoms. The mechanism is probably vasospasm. There is no evidence of stroke. I do not believe this was a TIA either He does have risk factors for stroke including hypertension and dyslipidemia. He is on 81 mg aspirin tablet daily. He has no evidence of old ischemic issues on MRI of the brain. 2. History of concussion, with loss of consciousness, and postconcussive syndrome October 2014. He is largely resolved from this but still has some residual symptomatology including occasional balance issues and dizziness, blurry vision, cognitive issues, or headache. I have seen a number of individuals with concussion who still asymptomatic 2 years later. 3. History of left C8 radiculopathy September 2015, currently resolved. 4. Hypertension, not adequately controlled. Plan 1. Control blood pressure as you are doing, trying for a mean arterial pressure at approximately 100. 2. Continue 81 mg aspirin tablet daily. 3. I see no need for additional neurologic testing at this time. I have spoken with doctors Mindy and Arlene regarding this case including differential diagnosis and treatment options. The patient follow up with Dr. Lala, if desired.
--- NOTE | 2016-11-14 13:31 | ECHOCARDIOGRAM REPORT ---
*NOTICE TO RECEIVING DEMOCRAT AGENCY This information is strictly Confidential and protected under [place] law. [place] law prohibits you from making any further disclosure of this information unless further disclosure is expressly permitted by the written consent of the person to whom it pertains or is authorized by law. A general authorization for the release of medical or other information is not sufficient for this purpose. Hospital accepts no responsibility if the information is made available to any other person, INCLUDING THE PATIENT. Interpretation Summary * Name: JENNIFER YUNG Study Date: 11/14/2016 07:17 AM BP: 147/95 mmHg * Patient Location: .2T\S\E218\S\1 HR: 56 * : 1965 (M/d/yyyy) Gender: Male Height: 72 in * Age: 50 yrs Ethnicity: CA Weight: 218 lb * Ordering Physician: Alex Tapia * Referring Physician: Self, Referred * Performed By: Tiffany Ling [facility] * * Reason For Study: CEREBRAL ISCHEMIA / EMBOLUS * BSA: 2.2 m2 * Low normal overall left ventricular systolic function. * Normal chamber dimensions. * Trace aortic,mitral,and pulmonic regurgitation. * Mild tricuspid regurgitation. * No cardiac source of emboli noted. Procedure Details * A complete two-dimensional transthoracic echocardiogram was performed (2D, M-mode, Doppler and color flow Doppler). * A saline contrast injection was performed to assess for cardiac shunting. * The injection was performed through an intravenous line in the right arm. * The attending nurse who injected the saline contrast was RUPERTO DAMON, RN. * A total of 20 cc of agitated saline was given. Left Ventricle * The left ventricle is normal in size. * There is mild concentric left ventricular hypertrophy. * Left ventricular systolic function is low normal. * Ejection Fraction = 50-55%. * The left ventricular wall motion is normal. Right Ventricle * The right ventricle is normal in size and function. Atria * The left atrial size is normal. * Right atrial size is normal. * Injection of contrast documented no interatrial shunt. Mitral Valve * The mitral valve is normal. * There is no mitral valve stenosis. * There is trace mitral regurgitation. Tricuspid Valve * The tricuspid valve is normal. * There is no tricuspid stenosis. * There is mild tricuspid regurgitation. * Right ventricular systolic pressure is normal. Aortic Valve * The aortic valve is trileaflet. * The aortic valve opens well. * Aortic stenosis is absent. * Trace aortic regurgitation. Pulmonic Valve * The pulmonic valve is not well visualized. * The pulmonary valve is inadequately visualized, but the Doppler data is adequate for interpretation. * There is no pulmonic valvular stenosis. * Trace pulmonic valvular regurgitation. Great Vessels * The aortic root is normal size. Pericardium/Pleural * There is no pericardial effusion. Great Vessels * Normal inferior vena cava diameter and respiratory variation suggests normal central venous pressure. MMode 2D Measurements and Calculations IVSd 1.3 cm IVSs 1.5 cm LVIDd 4.9 cm LVIDs 3.5 cm LVPWd 1.4 cm LVPWs 1.5 cm IVS/LVPW 0.95 FS 28.0 % EDV(Teich) 113.1 ml ESV(Teich) 52.1 ml EF(Teich) 54.0 % EDV(cubed) 118.1 ml ESV(cubed) 44.1 ml EF(cubed) 62.6 % % IVS thick 11.9 % % LVPW thick 3.8 % LV mass(C)d 272.6 grams LV mass(C)dI 123.4 grams/m\S\2 LV mass(C)s 189.7 grams LV mass(C)sI 85.8 grams/m\S\2 SV(Teich) 61.0 ml SI(Teich) 27.6 ml/m\S\2 SV(cubed) 73.9 ml SI(cubed) 33.4 ml/m\S\2 Ao root diam 3.7 cm Ao root area 10.7 cm\S\2 LA dimension 3.5 cm LA/Ao 0.96 LVOT diam 2.3 cm LVOT area 4.1 cm\S\2 LVAd ap4 42.3 cm\S\2 LVLd ap4 9.0 cm EDV(MOD-sp4) 164.2 ml EDV(sp4-el) 169.2 ml LVAs ap4 27.2 cm\S\2 LVLs ap4 7.9 cm ESV(MOD-sp4) 80.9 ml ESV(sp4-el) 80.0 ml EF(MOD-sp4) 50.7 % EF(sp4-el) 52.7 % LVAd ap2 43.4 cm\S\2 LVLd ap2 9.3 cm EDV(MOD-sp2) 165.2 ml EDV(sp2-el) 171.5 ml LVAs ap2 30.6 cm\S\2 LVLs ap2 8.2 cm ESV(MOD-sp2) 94.2 ml ESV(sp2-el) 96.3 ml EF(MOD-sp2) 43.0 % EF(sp2-el) 43.8 % LVLd %diff 3.7 % EDV(MOD-bp) 166.2 ml LVLs %diff 4.6 % ESV(MOD-bp) 89.4 ml EF(MOD-bp) 46.2 % SV(MOD-sp4) 83.3 ml SI(MOD-sp4) 37.7 ml/m\S\2 SV(MOD-sp2) 71.0 ml SI(MOD-sp2) 32.1 ml/m\S\2 SV(MOD-bp) 76.7 ml SI(MOD-bp) 34.7 ml/m\S\2 SV(sp4-el) 89.2 ml SI(sp4-el) 40.4 ml/m\S\2 SV(sp2-el) 75.1 ml SI(sp2-el) 34.0 ml/m\S\2 Doppler Measurements and Calculations MV E max jeannie 69.6 cm/sec MV A max jeannie 55.5 cm/sec MV E/A 1.3 MV P1/2t max jeannie 73.3 cm/sec MV P1/2t 95.8 msec MVA(P1/2t) 2.3 cm\S\2 MV dec slope 224.2 cm/sec\S\2 MV dec time 0.25 sec Ao V2 max 107.0 cm/sec Ao max PG 4.6 mmHg Ao max PG (full) 2.8 mmHg ELIAS(V,A) 2.6 cm\S\2 ELIAS(V,D) 2.6 cm\S\2 AI max jeannie 302.8 cm/sec AI max PG 36.7 mmHg AI dec slope 95.2 cm/sec\S\2 AI P1/2t 932.0 msec LV V1 max PG 1.8 mmHg LV V1 max 67.4 cm/sec PA V2 max 87.1 cm/sec PA max PG 3.0 mmHg PI max jeannie 144.9 cm/sec PI max PG 8.4 mmHg PI dec slope 95.7 cm/sec\S\2 PI P1/2t 443.6 msec TR max jeannie 192.4 cm/sec
--- NOTE | 2016-11-14 18:01 | Family Medicine Progress Note ---
Progress Note Date of Service Nov 14, 2016. Subjective Pt evaluation today including: conversation w/ patient, physical exam, chart review, lab review The patient was seen and examined at bedside. No acute overnight events. Tele showed sinus rhythm in the 50s and 60s. Patient is resting comfortably in bed. States his symptoms have improved. Pt was NPO and diet was advanced during the day. Plan of care was described to the patient and all questions were answered. Constitutional: No fever, No chills, No sweats ENT: No hearing loss Respiratory: No cough, No sputum, No wheezing, No shortness of breath, No dyspnea on exertion Cardiovascular: No chest pain Abdomen: No pain, No nausea, No vomiting, No diarrhea Male : No dysuria Skin: No rash Objective Physical Exam General Appearance: WD/WN, no apparent distress, + obese Eyes: normal inspection, PERRL, EOMI, + pertinent finding (left eye opens more easily than the right to gentle traction) Respiratory/Chest: chest non-tender, lungs clear, normal breath sounds, no respiratory distress, no accessory muscle use Cardiovascular: regular rate, rhythm, no edema, no gallop, no JVD, no murmur Abdomen: normal bowel sounds, non tender, soft, no organomegaly Extremities: non-tender, normal inspection, no pedal edema, no calf tenderness Neurologic/Psychiatric: 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 ) Assessment and Plan 50M with a PMHX of HTN, HLD with a previous concussion history presented with sudden onset left facial numbness and contralateral left foot weakness and numbness. Echo grossly normal. MRI/MRA head grossly normal. Symptoms may all be HTN urgency. Will continue to monitor. ESR and CRP negative. Lyme negative. Pt showed clinical improvement in Symptoms. We are continuing to monitor. Left episcopalian numbness/discomfort + Right food numbness and weakness - CT brain normal, MRI brain, MRA head and neck normal, echo normal. - Not candidate for tPA\\ - Per neuro likely related to uncontrolled HTN. - Continue ASA 81 - Continue Atorvastatin 40 mg daily - Increase Lisinopril to 10mg daily. - HBA1C was 5.4, Hypertension - Lisinopril as above. - Will check Orthostatic VS. Hypercholesterolemia - Continue Atorvastatin as above. DVT Prophylaxis - SCD Knee, ZACARIAS Goodman - Lovenox 40 mg s.c. daily Disposition - Telemetry - OT and PT evaluations - Anticipate going home. FULL CODE Resident Physician Supervision Note: I interviewed and examined the patient. Discussed with Dr. Guillen and agree with findings and plan as documented in the note. Any exceptions or clarifications are listed here: None Documented By: Davy Jacobs feeling better but still not totally there - side of head still a little off but eyelid better, R foot improving feels like pins and needles but improving. vitals noted nad breathing unlabored. 4/5 strength flex/ex R foot and great toe , sl weaker L eyelid but in normal range improving neurologic deficits w paresthesiae and weakness - most likely due to hypertensive encephalopathy -seems to have been a "perfect storm" of events - baseline HTN + tobacco use on day of admission + cold exposure (he notes that this has often bumped his BP) -increase lisinopril to 10mg for now -serial exams - improving -PT/OT -safe for med surg -hopefully home by tomorrow Resident Involvement: Resident Care Provided Care Provided: Adult Hospital Medicine
[2016-11-15 07:11] VITALS: BP_SYST 115; BP_SYST 122; BP_SYST 133; BP_DIAS 86; BP_DIAS 87; BP_DIAS 92; PULSE 57; PULSE 61; PULSE 64; TEMP 36.6; O2SAT 96
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
[2016-11-15 08:00] VITALS: O2SAT 96
[2016-11-15] MEDS: ASPIRIN 81 MG ECTAB PO SCH (08:43)
[2016-11-15] MEDS: MULTIVITAMIN TAB PO SCH (08:44)
[2016-11-15] MEDS: CHOLECALCIFEROL 1000 INTER.UNIT TAB PO SCH (08:44)
[2016-11-15] MEDS: ATORVASTATIN 40 MG TAB PO SCH (08:44)
[2016-11-15] MEDS: ENOXAPARIN 40 MG/0.4 ML SYR SC SCH (09:00)
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
--- NOTE | 2016-11-15 10:24 | DIAGNOSTIC IMAGING REPORT ---
L-SPINE MIN 4 VIEWS ROUTINE CLINICAL HISTORY: 50 years-old Male presenting with Right foot drop, acute onset. TECHNIQUE: Frontal, bilateral oblique, lateral, and coned in lateral views lumbar spine were obtained. COMPARISON: CT from 10/19/2016. FINDINGS: No scoliosis. Normal lumbar lordosis. Vertebral body heights and alignment maintained. Intervertebral disc spaces maintained. Mild anterior osteophytosis noted at L3-4. No radiographic evidence of acute fracture or subluxation. No osseous neural foraminal narrowing. Mild stool burden. IMPRESSION: No radiographic evidence of acute osseous injury of the lumbar spine. Mild degenerative change at L3-4. Electronically signed by: Rashid Langley M.D. 11/15/2016 10:23 AM Dictated Date/Time: 11/15/2016 10:21 AM
[2016-11-15] MEDS: LISINOPRIL 10 MG TAB PO SCH (11:13)
[2016-11-15 14:46] VITALS: BP 110/75; PULSE 67; TEMP 36.7; O2SAT 98
[2016-11-15 16:00] VITALS: O2SAT 98
[2016-11-15 16:52] VITALS: BP_SYST 114; BP_SYST 117; BP_SYST 127; BP_DIAS 77; BP_DIAS 84; BP_DIAS 88; PULSE 58; PULSE 60; PULSE 70
--- NOTE | 2016-11-15 20:52 | DIAGNOSTIC IMAGING REPORT ---
MRI OF THE LUMBAR SPINE WITHOUT IV CONTRAST CLINICAL HISTORY: L5 radiculopathy. COMPARISON STUDY: Abdominal CT dated 10/19/2016. Central lumbar spine dated 11/15/2016. TECHNIQUE: MRI of the lumbar spine is performed utilizing various T1 and T2-weighted sequences in the axial and sagittal planes. IV contrast was not administered for this examination. FINDINGS: Lumbar spine: Vertebral body height and alignment are maintained throughout the lumbar spine. Normal marrow signal intensity is preserved throughout the visualized bony structures. The transverse and spinous processes are intact as visualized. There is no evidence of spondylolysis. No destructive bony lesion is seen. Intervertebral discs: There is mild degenerative disc desiccation and loss of height seen throughout the lumbar spine. Loss of height is greatest at L3-L4 and L4-L5. Spinal cord: The visualized spinal cord is normal in morphology and signal intensity. The conus medullaris terminates at the level of L1. The nerve roots of the cauda equina are normal in morphology. L1-L2: Unremarkable. L2-L3: Unremarkable. L3-L4: There is minimal posterior disc bulge. The central canal and neural foramina are widely patent. Mild facet arthropathy is of no consequence. L4-L5: There is a small posterior disc bulge and annular fissure. There is no significant acquired compromise of the central canal. The neural foramina are patent. L5-S1: There is minimal posterior disc bulge and annular fissure. The central canal and neural foramina are widely patent. Mild facet arthropathy is of no consequence. Sacrum: The visualized sacrum is normal in morphology and signal intensity. Soft tissues: The paraspinous soft tissues are normal as visualized. The partially imaged retroperitoneal structures are grossly unremarkable, but incompletely evaluated. IMPRESSION: 1. There is no disc herniation, central canal stenosis, or neural foraminal narrowing seen throughout the lumbar spine. 2. Mild degenerative disc disease as above. See discussion for detailed level by level analysis. Dictated: 11/15/2016 8:23 PM Transcribed: 11/15/2016 8:51 PM Yojana Electronically signed by: Bebeto Palmer M.D. 11/15/2016 9:05 PM Dictated Date/Time: 11/15/2016 8:23 PM
[2016-11-15 23:02] VITALS: BP 120/78; PULSE 63; TEMP 36.6; O2SAT 96
[2016-11-16 07:05] VITALS: BP 112/75; PULSE 57; TEMP 36.7; O2SAT 95
[2016-11-16] MEDS: CHOLECALCIFEROL 1000 INTER.UNIT TAB PO SCH (08:27)
[2016-11-16] MEDS: ASPIRIN 81 MG ECTAB PO SCH (08:27)
[2016-11-16] MEDS: MULTIVITAMIN TAB PO SCH (08:27)
[2016-11-16] MEDS: ATORVASTATIN 40 MG TAB PO SCH (08:27)
[2016-11-16] MEDS: ENOXAPARIN 40 MG/0.4 ML SYR SC SCH (08:31)
[2016-11-16] MEDS: LISINOPRIL 10 MG TAB PO SCH (09:14)
[2016-11-16] MEDS ORDERED: LSN10 PO (11:45)
--- NOTE | 2016-11-16 11:52 | Discharge Instructions ---
Discharge Instructions Date of Service Nov 16, 2016. Admission Reason for Admission: Left Facial Numbness,Weakness Of Right Foot Discharge Discharge Diagnosis / Problem: Hypertensive Encephalopathy Discharge Goals Goal(s): Decrease discomfort, Improve function, Increase independence, Improve disease control, Improve nutritional status, Learn about illness Activity Recommendations Activity Limitations: per Instructions/Follow-up section . Instructions / Follow-Up Instructions / Follow-Up You are being discharged on 10mg daily of Lisinopril. This is approximately double the dose you came in on. Please make sure you stand up slowly in case this increased dose makes you light headed. Follow up with your PCP regarding maintaining this dose at home. Follow up appointments will be made for you with a Neurologist, Button Maker and your PCP. Please keep these appointments. Physical therapy appointments will also be made for you on discharge. If you find that your symptoms worsen, including your right leg numbness, or you notice that your speech or gait is significantly impaired and worsening please come to the ER. Current Hospital Diet Patient's current hospital diet: AHA Diet (Heart Healthy) Discharge Diet Recommended Diet: AHA Diet (Heart Healthy) Pending Studies Studies pending at discharge: no Laboratory Results Hemoglobin A1c Test 11/13/16 23:14 Range/Units Estimated Average Glucose 108 mg/dl Hemoglobin A1c 5.4 4.5-5.6 % Medical Emergencies . Who to Call and When: Medical Emergencies: If at any time you feel your situation is an emergency, please call 911 immediately. . Non-Emergent Contact Non-Emergency issues call your: Primary Care Provider, Neurologist . . "Provider Documentation" section prepared by Ethan Guillen. . VTE Core Measure Inpt VTE Proph given/why not?: Enoxaparin (Lovenox)SQ Resident Involvement: Resident Care Provided Care Provided: Adult Hospital Medicine
[2016-11-16 12:01] VITALS: BP 112/75; PULSE 57; TEMP 36.7; O2SAT 95
== END 2016-11-16 13:52 | disposition home or self-care (01) | DRG 79 ==
LOC: C.EDB 23:04 → C.2T 11-14 01:42 → ENRESERV 11-14 01:49 → C.2T 11-14 03:54 → ENRESERV 11-14 15:53 → C.MS4W 11-14 16:35
PROVIDERS: ADMIT Student in an Organized Health Care Education/Training Program; ATTEND Family Medicine
DX: I67.4 Hypertensive encephalopathy (principal); S06.0X1S Concussion with loss of consciousness of 30 minutes or less, sequela; I10 Essential (primary) hypertension; F17.200 Nicotine dependence, unspecified, uncomplicated; E78.5 Hyperlipidemia, unspecified; H53.9 Unspecified visual disturbance; M21.371 Foot drop, right foot; M62.81 Muscle weakness (generalized); R29.703 NIHSS score 3; Z87.828 Personal history of other (healed) physical injury and trauma; X58.XXXS Exposure to other specified factors, sequela; F07.81 Postconcussional syndrome; Z83.3 Family history of diabetes mellitus

== ENCOUNTER 2017-02-09 15:19 | Emergency (ER) | payer OTHER ==
[~2017-02-09] VITALS: Ht 180.3 cm; Wt 101.2 kg
[~2017-02-09 15:19] MED LIST changes: +ATOR10TA82 PO; -ATOR10TA88 PO; -LISI5TAB PO; +LSN10 PO
[2017-02-09 15:23] VITALS: TEMP 36.3; Ht 180.3 cm; Wt 101.2 kg
[2017-02-09] MEDS ORDERED: ONDANSETRON INJ 2 MG/ML 2 ML VIAL IV STA (15:38)
[2017-02-09] MEDS ORDERED: SODIUM CHLORIDE 0.9% 1000ML 1,000 ML IV STA (15:38)
[2017-02-09] MEDS ORDERED: MoRPHine SULFATE 10 MG/ML CARP/VIAL IV STA (15:38)
[2017-02-09] MEDS ORDERED: AMLO10TA3 PO (15:59)
[2017-02-09 16:03] LABS: BASO % 0.5 %; BASO ABS # 0.03 K/uL (0-0.2); EOS % 4.1 %; EOS ABS # 0.26 K/uL (0-0.5); HEMATOCRIT 42.6 % (42-52); HEMOGLOBIN 14.6 g/dL (14.0-18.0); IG# 0.04 K/uL (0.00-0.02); LYMPH % 19.3 %; LYMPH ABS # 1.23 K/uL (1.2-3.4); MEAN CELL VOLUME 87.5 fL (80-100); MEAN CORPUSCULAR HGB CONC 34.3 g/dl (32-36); MEAN PLATELET VOLUME 9.5 fL (7.4-10.4); MONO % 8.6 %; MONO ABS # 0.55 K/uL (0.11-0.59); NEUT % 66.9 %; NEUT ABS # 4.25 K/uL (1.4-6.5); PLATELET COUNT 226 K/uL (130-400); RED CELL DISTRIBUTION WIDTH CV 13.5 % (11.5-14.5); RED CELL DISTRIBUTION WIDTH SD 42.7 fL (36.4-46.3); WHITE BLOOD COUNT 6.36 K/uL (4.8-10.8)
[2017-02-09 16:10] LABS: ALBUMIN 4.1 gm/dl (3.4-5.0); ALT/SGPT 52 U/L (12-78); BLOOD UREA NITROGEN 22 mg/dl (7-18); CALCIUM 9.2 mg/dl (8.5-10.1); CARBON DIOXIDE 26 mmol/L (21-32); CREATININE 1.16 mg/dl (0.60-1.40); GLUCOSE 102 mg/dl (70-99); LIPASE 116 U/L (73-393); POTASSIUM 3.6 mmol/L (3.5-5.1); SODIUM 139 mmol/L (136-145)
[2017-02-09 16:13] LABS: ALKALINE PHOSPHATASE 124 U/L (45-117); AST/SGOT 30 U/L (15-37)
--- NOTE | 2017-02-09 17:36 | DIAGNOSTIC IMAGING REPORT ---
ABDOMEN LIMITED (US) CLINICAL HISTORY: 51 years-old Male presenting with superior umbilicus pain eval for hernia. TECHNIQUE: Real-time grayscale ultrasound imaging of the periumbilical region was performed for a focused evaluation for hernia at the site of clinical concern. Color Doppler was also performed. COMPARISON: None. FINDINGS: At the site of clinical concern in the midline supraumbilical region, focal irregular hypoechoic region protrudes through the anterior peritoneum suggesting the presence of a hernia. This was not reducible by compression and that did not change with Valsalva maneuver. The appearance peritoneal defect measures 2.8 cm. The possible hernia sac measures 2 cm in diameter. No hyperemia or significant associated fluid. IMPRESSION: 1. Questionable small herniation at the site of clinical concern. Alternatively, the appearance may be due to postsurgical change and scar given the absence of compressibility and no change on increased intra-abdominal pressure. Electronically signed by: Rashid Langley M.D. 02/09/2017 5:34 PM Dictated Date/Time: 02/09/2017 5:31 PM
--- NOTE | 2017-02-09 18:28 | DIAGNOSTIC IMAGING REPORT ---
ABD/PELVIS ORAL CONT ONLY CLINICAL HISTORY: 51 years-old Male presenting with superior umbilical pain, concern for hernia. TECHNIQUE: Multidetector CT of the abdomen and pelvis was performed after the administration of oral contrast only. IV contrast: None. A dose lowering technique was used consistent with the principles of ALARA (as low as reasonably achievable). COMPARISON: 10/19/2016. CT DOSE (mGy.cm): The estimated cumulative dose is 872.82 mGy.cm. FINDINGS: [facility] [employer] [facility] [employer] topogram: Unremarkable. Lung bases: Minimal basilar opacities, likely atelectasis. Multichamber enlargement of the heart. Coronary artery calcification. No pericardial or pleural effusion. Liver: Normal morphology. Normal density. Biliary: No gross biliary ductal dilatation allowing for noncontrast technique. Normal gallbladder. Pancreas: Moderate parenchymal atrophy. Spleen: Normal noncontrast appearance. Adrenal glands: Normal noncontrast appearance. Kidneys and ureters: Normal noncontrast appearance. No nephrolithiasis. No hydronephrosis. Normal ureters. Bladder: Mild circumferential bladder wall thickening. Pelvic organs: Prostate enlargement likely secondary to benign prostatic hyperplasia. Bowel: Limited diverticulosis of the sigmoid colon. The appendix is normal. No bowel obstruction. Small hiatal hernia. Peritoneal cavity: No free fluid or intraperitoneal gas. Lymph nodes: No gross lymphadenopathy allowing for noncontrast technique. Vasculature: Normal noncontrast appearance. Abdominal wall: Surgical mesh noted in the periumbilical region along the anterior peritoneum. No herniation of intra-abdominal contents. No associated fluid collection. No inflammatory change. Diminutive fat-containing right paramedian ventral hernia more superiorly (series 3 image 219). Minimal associated inflammatory change. No associated fluid. This is superior to the surgical mesh. Musculoskeletal: Normal. IMPRESSION: 1. Small fat-containing right paramedian ventral hernia. Minimal associated inflammatory change could suggest strangulation versus surgical scarring as in the setting of a prior port site. 2. No herniation at the site of periumbilical mesh repair. 3. Suggestion of chronic bladder outlet obstruction due to prostatomegaly. Electronically signed by: Rashid Langley M.D. 02/09/2017 6:27 PM Dictated Date/Time: 02/09/2017 6:19 PM
[2017-02-09] MEDS ORDERED: TRAM-10 PO (18:49)
[2017-02-09 19:03] VITALS: BP 138/105; PULSE 66; O2SAT 95
--- NOTE | 2017-02-10 20:53 | EMERGENCY ROOM VISIT NOTE ---
ED Visit Note First contact with patient: 15:26 Chief Complaint: Abdominal pain History of Present Illness: Mr. Perez is a 51 year-old white male ambulates into the ED accompanied by his girlfriend complaining of abdominal pain just superior to the umbilicus in the midline. Historically patient reports status post ventral hernia repair 2. Patient reports last evening when he came from work he noticed some mild pain in his abdomen above his umbilicus. Then today at work he reports he was doing heavy lifting and his pain became severe. Currently he describes his pain as a sharp discomfort. The pain is just superior to the umbilicus at the 12 o'clock position. At rest he rates his discomfort 4/10 when he uses his abdominal muscles or the area is palpated his pain becomes 8/10. The pain is nonradiating. He has not had any medication for pain prior to arrival at the hospital. He denies any associated symptoms including fevers, chills, sweats, skin eruptions, skin color changes, upper respiratory tract symptoms, shortness of breath, chest pain, nausea, vomiting, diarrhea, constipation, rectal bleeding , black/tarry stools, urinary symptoms, hematuria, back/flank pain. Review of Systems: As noted above in history of present illness. All body systems were reviewed and found to be negative as noted above. Past Medical History: As previously noted, hypertension and status post tonsillectomy. Current Medications: Aspirin, Lipitor, multivitamins, Norvasc. Allergies to Medications: IV CT contrast. Social History: Patient is currently employed; he feels safe in his home environment; he denies tobacco and alcohol use. Physical Examination: Vital Signs: Date Time Temp Pulse Resp B/P (MAP) Pulse Ox O2 Delivery O2 Flow Rate FiO2 02/09/17 19:03 66 16 138/105 95 02/09/17 18:30 66 16 138/105 97 Room Air 02/09/17 18:00 65 14 138/101 95 Room Air 02/09/17 17:49 67 20 152/106 97 Room Air 02/09/17 16:30 73 14 144/103 95 Room Air 02/09/17 16:02 76 02/09/17 15:51 80 18 134/102 95 Room Air 02/09/17 15:23 36.3 83 16 151/94 95 Room Air GENERAL: 51-year-old male in mild to moderate distress due to pain, nontoxic- appearing, afebrile and hemodynamically stable. NEUROLOGICAL: Awake, alert and oriented to person, place and time. Answering questions appropriately and following commands. Normal gait. Good hand eye coordination. SKIN: Warm, dry and pink. No soft tissue eruptions or trauma noted. HEENT: Atraumatic and normocephalic. PERRL. Sclera white and conjunctiva pink. Oral cavity moist and pink. Pharynx is nonerythematous or edematous. Speech normal. No lymphadenopathy. Trachea midline. No jugular venous distention. BACK: No tenderness over the bony spine. No CVA tenderness. THORAX: Lungs sounds are clear to auscultation and equal bilaterally with symmetrical chest wall. No wheezing, rales or rhonchi. No crepitus, tenderness , subcutaneous air or deformities noted. HEART: Regular rate and rhythm. No gallops, rubs or murmurs are appreciated. ABDOMEN: Flat and soft with moderate tenderness just superior to the umbilicus at the club o'clock position. This is associated with mild guarding. Decreased bowel sounds in all quadrants. No bowel sounds over area of pain. No rigidity or organomegaly. EXTREMITIES: Moves all extremities well on command and with purpose. All distal neurovascular statuses are intact and equal bilaterally. ED Course: Patient is assessed as noted above. Laboratory Testing: Test 02/09/17 15:30 02/09/17 17:49 Range/Units White Blood Count 6.36 4.8-10.8 K/uL Red Blood Count 4.87 4.7-6.1 M/uL Hemoglobin 14.6 14.0-18.0 g/dL Hematocrit 42.6 42-52 % Mean Corpuscular Volume 87.5 80-100 fL Mean Corpuscular Hemoglobin 30.0 25-34 pg Mean Corpuscular Hemoglobin Concent 34.3 32-36 g/dl Platelet Count 226 130-400 K/uL Mean Platelet Volume 9.5 7.4-10.4 fL Neutrophils (%) (Auto) 66.9 % Lymphocytes (%) (Auto) 19.3 % Monocytes (%) (Auto) 8.6 % Eosinophils (%) (Auto) 4.1 % Basophils (%) (Auto) 0.5 % Neutrophils # (Auto) 4.25 1.4-6.5 K/uL Lymphocytes # (Auto) 1.23 1.2-3.4 K/uL Monocytes # (Auto) 0.55 0.11-0.59 K/uL Eosinophils # (Auto) 0.26 0-0.5 K/uL Basophils # (Auto) 0.03 0-0.2 K/uL RDW Standard Deviation 42.7 36.4-46.3 fL RDW Coefficient of Variation 13.5 11.5-14.5 % Immature Granulocyte % (Auto) 0.6 % Immature Granulocyte # (Auto) 0.04 0.00-0.02 K/uL Sodium Level 139 136-145 mmol/L Potassium Level 3.6 3.5-5.1 mmol/L Chloride Level 105 98-107 mmol/L Carbon Dioxide Level 26 21-32 mmol/L Anion Gap 8.0 3-11 mmol/L Blood Urea Nitrogen 22 7-18 mg/dl Creatinine 1.16 0.60-1.40 mg/dl Est Creatinine Clear Calc Drug Dose 91.3 ml/min Estimated GFR () 84.0 Estimated GFR (Non- 72.5 BUN/Creatinine Ratio 19.1 10-20 Random Glucose 102 70-99 mg/dl Calcium Level 9.2 8.5-10.1 mg/dl Total Bilirubin 0.4 0.2-1 mg/dl Direct Bilirubin < 0.1 0-0.2 mg/dl Aspartate Amino Transf (AST/SGOT) 30 15-37 U/L Alanine Aminotransferase (ALT/SGPT) 52 12-78 U/L Alkaline Phosphatase 124 45-117 U/L Total Protein 8.0 6.4-8.2 gm/dl Albumin 4.1 3.4-5.0 gm/dl Lipase 116 73-393 U/L Urine Color YELLOW Urine Appearance CLEAR CLEAR Urine pH 5.0 4.5-7.5 Urine Specific [place] 1.025 1.000-1.030 Urine Protein NEG NEG Urine Glucose (UA) NEG NEG Urine Ketones NEG NEG Urine Occult Blood NEG NEG Urine Nitrite NEG NEG Urine Bilirubin NEG NEG Urine Urobilinogen NEG NEG Urine Leukocyte Esterase NEG NEG Umbilical Ultrasound: Was reviewed by myself and read by the radiologist showing a questionable small hernia in the area of clinical concern. Appearance male also be due to postsurgical changes. Oral Contrast CT Of the Abdomen and Pelvis: Was reviewed by myself and read by the radiologist showing a small fat-containing right paramedian ventral hernia with minimal associated inflammatory change. No herniation at the site of the periumbilical mesh repair. Suggestion of chronic bladder outlet obstruction due to prostatectomy. Patient was hydrated with normal saline and he received 6 mg of morphine IV for pain and 4 mg of Zofran. Patient was reassessed multiple times during his stay in the emergency department. Patient's case was reviewed with Dr. Giles; we agreed on diagnostic approach , treatment, disposition and plan per Patient was educated about today's findings and instructed on his treatment plan ; he verbalizes understanding and agreement with this plan. Clinical Impression: Umbilical abdominal pain. Decision-Making: Initially my differential diagnosis I considered postoperative infection, re-herniation a ventral hernia, mesh inflammatory causes, and other causes. Disposition: Patient discharged home in stable condition accompanied by female friends; prior to departure he was reassessed and subjectively reported he was feeling much better. Plan: Patient was given a prescription for Ultram 50 mg every 6 hours as needed for pain. Other comfort measures were encouraged including use of ice and avoidance of heavy lifting. Patient is encouraged to contact his surgeon and request follow-up care and treatment. Patient was encouraged return ED for worsening pain, fevers, vomiting, redness or swelling in the area of his incision or any new/concerning symptoms.
[2017-07-20] MEDS ORDERED: LAMO25TA PO (11:50)
[2017-07-20] MEDS ORDERED: CHOL1000 PO (11:50)
[2017-07-20] MEDS ORDERED: MULT-506 PO (11:50)
[2017-07-20] MEDS ORDERED: PANT40TA PO (11:50)
[2017-07-27] MEDS ORDERED: HYDR-5688 PO (07:58)
== END 2017-02-09 18:58 | disposition home or self-care (01) ==
LOC: C.EDB 15:20 → C.EDA 18:58
DX: R10.9 Unspecified abdominal pain (principal); I10 Essential (primary) hypertension; Z79.82 Long term (current) use of aspirin

== ENCOUNTER 2017-03-13 01:00 | Emergency (ER) | payer OTHER ==
[~2017-03-13] VITALS: Ht 182.9 cm; Wt 99.5 kg
[~2017-03-13 01:00] MED LIST changes: +AMLO-114 PO; -LSN10 PO; +TRAM-10 PO
[2017-03-13 01:06] VITALS: Ht 182.9 cm; Wt 99.5 kg
[2017-03-13] MEDS ORDERED: ONDANSETRON INJ 2 MG/ML 2 ML VIAL IV STA (01:38)
[2017-03-13] MEDS ORDERED: SODIUM CHLORIDE 0.9% 1000ML 1,000 ML IV STA ×2 (01:38→03:11)
[2017-03-13] MEDS ORDERED: FAMOTIDINE 20MG/5ML IV PUSH IV STA (01:44)
[2017-03-13 01:49] LABS: BASO % 0.1 %; BASO ABS # 0.01 K/uL (0-0.2); EOS % 0.2 %; EOS ABS # 0.02 K/uL (0-0.5); HEMATOCRIT 46.3 % (42-52); HEMOGLOBIN 16.3 g/dL (14.0-18.0); IG# 0.03 K/uL (0.00-0.02); LYMPH % 2.6 %; LYMPH ABS # 0.24 K/uL (1.2-3.4); MEAN CELL VOLUME 87.5 fL (80-100); MEAN CORPUSCULAR HEMOGLOBIN 30.8 pg (25-34); MEAN CORPUSCULAR HGB CONC 35.2 g/dl (32-36); MEAN PLATELET VOLUME 9.8 fL (7.4-10.4); MONO % 5.7 %; MONO ABS # 0.52 K/uL (0.11-0.59); NEUT % 91.1 %; NEUT ABS # 8.33 K/uL (1.4-6.5); PLATELET COUNT 210 K/uL (130-400); RED CELL DISTRIBUTION WIDTH CV 13.4 % (11.5-14.5); RED CELL DISTRIBUTION WIDTH SD 42.6 fL (36.4-46.3); WHITE BLOOD COUNT 9.15 K/uL (4.8-10.8)
[2017-03-13] MEDS ORDERED: VBRT100 PO (01:54)
[2017-03-13 01:56] LABS: ALBUMIN 3.8 gm/dl (3.4-5.0); ALT/SGPT 29 U/L (12-78); AST/SGOT 15 U/L (15-37); BLOOD UREA NITROGEN 21 mg/dl (7-18); CALCIUM 8.6 mg/dl (8.5-10.1); CARBON DIOXIDE 23 mmol/L (21-32); CREATININE 1.48 mg/dl (0.60-1.40); GLUCOSE 123 mg/dl (70-99); LIPASE 182 U/L (73-393); POTASSIUM 3.7 mmol/L (3.5-5.1); SODIUM 139 mmol/L (136-145)
[2017-03-13 01:57] LABS: PTT PATIENT 25.2 SECONDS (21.0-31.0)
[2017-03-13 02:02] LABS: ALKALINE PHOSPHATASE 122 U/L (45-117); CKMB < 0.5 ng/ml (0.5-3.6); TOTAL PROTEIN 7.7 gm/dl (6.4-8.2)
[2017-03-13] MEDS ORDERED: LIDOCAINE HCL 2% VISC SOLN 20 ML UDC PO STA (02:22)
[2017-03-13] MEDS ORDERED: ALUMINUM/MAGNESIUM SUSP 30 ML UDC PO STA (02:22)
[2017-03-13 04:36] VITALS: BP 118/78; PULSE 79; TEMP 37; O2SAT 96
--- NOTE | 2017-03-13 06:31 | EMERGENCY ROOM VISIT NOTE ---
History Report prepared by Héctor: Rhonda Collins Under the Supervision of: Dr. Charis Pratt D.O. First contact with patient: 01:09 Chief Complaint: VOMITING Stated Complaint: THROWING UP,DIARRHEA History of Present Illness The patient is a 51 year old male who presents to the Emergency Room with complaints of persistent vomiting that began 2 days ago. The patient states that he feels discomfort in his chest, esophageus, and stomach area secondary to the vomiting, which worsens when he lays on his right side. He notes that he feels like he has "burning hiccups". The patient reports that his abdominal pain radiates to his shoulder and lower back. He reports that his vomit has been dark, describing it as "almost charcoal". The patient notes that he has been nauseous and has diarrhea, noting his stool has been dark. He reports that he has been feeling cold and having chills, noting he has been using a heated blanket which did not help relieve his symptom. The patient notes that he took Pepto Bismol twice yesterday, noting it did not help relieve his symptoms. He notes that he has had a hernia fixed in the past. The patient reports that his blood pressure has been low all day, noting it was in the low 100's the last two times he checked. The patient also describes having a nosebleed earlier. Source of History: patient Onset: 2 days ago Position: other (global) Quality: other (vomiting) Timing: other (persistent) Associated Symptoms: + chills, + nausea, + abdominal pain, + diarrhea Note: Associated symptoms include discomfort in his chest, esophageus, and abdomen, as well as pain that radiates to his shoulder and lower back, "burning hiccups" , feeling cold, and low blood pressure. Review of Systems See HPI for pertinent positives & negatives. A total of 10 systems reviewed and were otherwise negative. Past Medical & Surgical Medical Problems: (1) HTN (hypertension) (2) Left facial numbness (3) Sinusitis (4) Weakness of right foot Surgical Problems: (1) H/O hernia repair Family History Diabetes mellitus Hypertension Social History Smoking Status: Never Smoker Alcohol Use: occasionally Drug Use: none Marital Status: in relationship Housing Status: lives with family Occupation Status: employed Current/Historical Medications Scheduled Amlodipine (Norvasc), 10 MG PO DAILY Aspirin (Aspirin Low Dose), 81 MG PO QAM Atorvastatin (Lipitor), 10 MG PO QAM Cholecalciferol (Vitamin D3), 2,000 INTER.UNIT PO DAILY Doxycycline Hyclate (Doxycycline Hyclate), 100 MG PO DAILY Multivitamin (Multivitamin), 1 TAB PO DAILY Allergies Coded Allergies: Iodinated Diagnostic Agents (Unverified Allergy, Unknown, ITCHY, 03/13/17) Physical Exam Vital Signs Date Time Temp Pulse Resp B/P (MAP) Pulse Ox O2 Delivery O2 Flow Rate FiO2 03/13/17 04:36 37.0 79 17 118/78 96 03/13/17 04:10 79 17 118/78 96 03/13/17 02:44 80 14 95/55 03/13/17 01:59 86 03/13/17 01:06 37.0 99 18 99/71 97 Room Air Physical Exam HEENT: Head - normocephalic and atraumatic Pupils are equal, round, and reactive to light. Extraocular eye muscles are intact, and sclera are anicteric. Nose - moist nasal mucosa without discharge. Mouth - moist buccal mucosa. Oropharynx is nonerythematous and there is no tonsillar exudate or edema noted. Neck: Supple; no JVD, nuchal rigidity, cervical lymphadenopathy. Heart: Regular rate and rhythm. There is a normal S1 and S2 with no murmurs, clicks, or gallops appreciated. Lungs: Clear to auscultation bilaterally with no wheezes, rales, or rhonchi. Abdomen: Soft, mild tenderness with palpation in the epigastrium, nondistended, with good bowel sounds. There are no palpable pulsatile masses or hepatosplenomegaly. There is no guarding, rigidity, or rebound noted. Extremities: No evidence of cyanosis, clubbing, or edema. There are easily palpable peripheral pulses. Skin: warm and dry with good turgor and no rashes. Medical Decision & Procedures Laboratory Results 03/13/17 01:25 Red Blood Count 5.29, Mean Corpuscular Volume 87.5, Mean Corpuscular Hemoglobin 30.8, Mean Corpuscular Hemoglobin Concent 35.2, Mean Platelet Volume 9.8, Neutrophils (%) (Auto) 91.1, Lymphocytes (%) (Auto) 2.6, Monocytes (%) (Auto) 5.7, Eosinophils (%) (Auto) 0.2, Basophils (%) (Auto) 0.1, Neutrophils # (Auto) 8.33, Lymphocytes # (Auto) 0.24, Monocytes # (Auto) 0.52, Eosinophils # (Auto) 0.02, Basophils # (Auto) 0.01 03/13/17 01:25 Test 03/13/17 01:25 03/13/17 04:00 White Blood Count 9.15 K/uL (4.8-10.8) Red Blood Count 5.29 M/uL (4.7-6.1) Hemoglobin 16.3 g/dL (14.0-18.0) Hematocrit 46.3 % (42-52) Mean Corpuscular Volume 87.5 fL (80-100) Mean Corpuscular Hemoglobin 30.8 pg (25-34) Mean Corpuscular Hemoglobin Concent 35.2 g/dl (32-36) Platelet Count 210 K/uL (130-400) Mean Platelet Volume 9.8 fL (7.4-10.4) Neutrophils (%) (Auto) 91.1 % Lymphocytes (%) (Auto) 2.6 % Monocytes (%) (Auto) 5.7 % Eosinophils (%) (Auto) 0.2 % Basophils (%) (Auto) 0.1 % Neutrophils # (Auto) 8.33 K/uL (1.4-6.5) Lymphocytes # (Auto) 0.24 K/uL (1.2-3.4) Monocytes # (Auto) 0.52 K/uL (0.11-0.59) Eosinophils # (Auto) 0.02 K/uL (0-0.5) Basophils # (Auto) 0.01 K/uL (0-0.2) RDW Standard Deviation 42.6 fL (36.4-46.3) RDW Coefficient of Variation 13.4 % (11.5-14.5) Immature Granulocyte % (Auto) 0.3 % Immature Granulocyte # (Auto) 0.03 K/uL (0.00-0.02) Prothrombin Time 10.6 SECONDS (9.0-12.0) Prothromb Time International Ratio 1.0 (0.9-1.1) Activated Partial Thromboplast Time 25.2 SECONDS (21.0-31.0) Partial Thromboplastin Ratio 1.0 Anion Gap 11.0 mmol/L (3-11) Est Creatinine Clear Calc Drug Dose 72.1 ml/min Estimated GFR () 62.6 Estimated GFR (Non- 54.0 BUN/Creatinine Ratio 14.3 (10-20) Calcium Level 8.6 mg/dl (8.5-10.1) Total Bilirubin 0.5 mg/dl (0.2-1) Direct Bilirubin < 0.1 mg/dl (0-0.2) Aspartate Amino Transf (AST/SGOT) 15 U/L (15-37) Alanine Aminotransferase (ALT/SGPT) 29 U/L (12-78) Alkaline Phosphatase 122 U/L (45-117) Total Creatine Kinase 65 U/L (39-308) Creatine Kinase MB < 0.5 ng/ml (0.5-3.6) Creatine Kinase MB Ratio (0-3.0) Troponin I < 0.015 ng/ml (0-0.045) Total Protein 7.7 gm/dl (6.4-8.2) Albumin 3.8 gm/dl (3.4-5.0) Lipase 182 U/L (73-393) Urine Color YELLOW Urine Appearance CLEAR (CLEAR) Urine pH 5.0 (4.5-7.5) Urine Specific [place] 1.023 (1.000-1.030) Urine Protein TRACE (NEG) Urine Glucose (UA) NEG (NEG) Urine Ketones NEG (NEG) Urine Occult Blood NEG (NEG) Urine Nitrite NEG (NEG) Urine Bilirubin NEG (NEG) Urine Urobilinogen NEG (NEG) Urine Leukocyte Esterase NEG (NEG) Urine WBC (Auto) 1-5 /hpf (0-5) Urine RBC (Auto) 0-4 /hpf (0-4) Urine Hyaline Casts (Auto) >30 /lpf (0-5) Urine Epithelial Cells (Auto) 10-20 /lpf (0-5) Urine Bacteria (Auto) NEG (NEG) Urine Crystals CALCIUM OXALATE (NONE Urine Pathogenic Casts /lpf (0) Laboratory results per my review. Medications Administered Medications (Trade) Dose Ordered Sig/Je Route Start Time Stop Time Status Last Admin Dose Admin Sodium Chloride 1,000 ml @ 999 mls/hr Q1H1M STAT IV 03/13/17 01:38 03/13/17 02:38 DC 03/13/17 02:07 999 MLS/HR Ondansetron HCl (Zofran Inj) 4 mg NOW STAT IV 03/13/17 01:38 03/13/17 01:41 DC 03/13/17 02:12 4 MG Famotidine (Pepcid 20mg Iv Push) 20 mg ONE STAT IV 03/13/17 01:44 03/13/17 01:45 DC 03/13/17 02:12 20 MG Lidocaine HCl (Viscous Lidocaine 2% Soln) 10 ml NOW STAT PO 03/13/17 02:22 03/13/17 02:23 DC 03/13/17 02:30 10 ML Al Hydroxide/Mg Hydroxide (Maalox Susp) 30 ml NOW STAT PO 03/13/17 02:22 03/13/17 02:23 DC 03/13/17 02:30 30 ML Sodium Chloride 1,000 ml @ 999 mls/hr Q1H1M STAT IV 03/13/17 03:11 03/13/17 04:11 DC 03/13/17 03:14 999 MLS/HR Procedure IV normal saline hydration IV Pepcid GI cocktail IV Zofran ECG Indication: diaphoresis, vomiting Rate (beats per minute): 83 Rhythm: normal sinus Findings: no acute ischemic change, no ectopy ED Course 0116: Past medical records reviewed. The patient was evaluated in room A3. A complete history and physical exam was performed. An IV lock was initiated and labs were drawn as above. The patients electrocardiogram was interpreted by me. 0138: Ordered Zofran Inj 4mg IV and Sodium Chloride 1000ml @ 999mls/hr IV. 0144: Ordered Famotidine 20mg IV. 0222: Ordered GI cocktail. 0302: I reevaluated the patient, who states he is feeling better and that his nausea went away. He notes that the GI cocktail took away his reflux. His blood pressure is still low. 0311: Ordered Sodium Chloride 1000ml @ 999 mls/hr IV. 0420: Upon reevaluation, the patient is feeling significantly better and is eating some crackers. His blood pressure is 118/78. He asked for a work note. I discussed findings and results with him. He verbalized agreement of the treatment plan. The patient was discharged home. Medical Decision The patient is a 51 year old male who presents to the ED with persistent vomiting. Differential diagnosis includes GI bleed, gastroenteritis, GERD, dehydration, and cardiac ischemia. The patient's laboratory results showed: no leukocytosis, stable H&H, BUN is 21 , Creatinine is 124, Glucose is 123, normal LFT except alk-phos is slightly elevated, normal lipase, and normal cardiac enzymes. It seems that the patient is having some black stool but it is heme tested negative. This may be secondary to Pepto-Bismol use. The patient was significantly dehydrated on physical exam and laboratory testing. After 2 L of normal saline solution, the patient's blood pressure came up. He is feeling much better. Medication Reconcilliation Current Medication List: was personally reviewed by me Blood Pressure Screening Patient's blood pressure: Normal blood pressure Impression Primary Impression: Dehydration Additional Impressions: Vomiting Diarrhea Scribe Attestation The scribe's documentation has been prepared under my direction and personally reviewed by me in its entirety. I confirm that the note above accurately reflects all work, treatment, procedures, and medical decision making performed by me. Departure Information Dispostion Home / Self-Care Referrals Jon Jaimes M.D. (PCP) Forms HOME CARE DOCUMENTATION FORM, IMPORTANT VISIT INFORMATION Patient Instructions My [facility] Additional Instructions Rest take plenty of clear liquids and a bland diet Follow up with PCP today or monday for a recheck. Return to the ER for worsening symptoms Problem Qualifiers Additional Impressions: Vomiting Vomiting type: unspecified Vomiting Intractability: intractable Nausea presence: with nausea Qualified Codes: R11.2 - Nausea with vomiting, unspecified Diarrhea Diarrhea type: unspecified type Qualified Codes: R19.7 - Diarrhea, unspecified
== END 2017-03-13 04:36 | disposition home or self-care (01) ==
LOC: C.EDB 01:01 → C.EDA 04:36
DX: E86.0 Dehydration (principal); R11.2 Nausea with vomiting, unspecified; R19.7 Diarrhea, unspecified; I10 Essential (primary) hypertension; Z79.82 Long term (current) use of aspirin; Z83.3 Family history of diabetes mellitus; Z82.49 Family history of ischemic heart disease and other diseases of the circulatory system

== ENCOUNTER → 2017-03-15 | Outpatient (CLI) | payer OTHER ==
[~2017-03-15] MED LIST changes: -TRAM-10 PO; +VBRT100 PO
[2017-03-15 18:23] LABS: ALBUMIN 3.6 gm/dl (3.4-5.0); ALKALINE PHOSPHATASE 101 U/L (45-117); ALT/SGPT 36 U/L (12-78); AST/SGOT 22 U/L (15-37); BLOOD UREA NITROGEN 10 mg/dl (7-18); CALCIUM 8.9 mg/dl (8.5-10.1); CARBON DIOXIDE 26 mmol/L (21-32); CREATININE 0.89 mg/dl (0.60-1.40); GLUCOSE 89 mg/dl (70-99); POTASSIUM 3.5 mmol/L (3.5-5.1); SODIUM 138 mmol/L (136-145); TOTAL PROTEIN 7.5 gm/dl (6.4-8.2)
== END | disposition home or self-care (01) ==
LOC: C.LABPVFM 12:52
PROVIDERS: ATTEND Nurse Practitioner Family
DX: E86.0 Dehydration (principal)

== ENCOUNTER 2017-04-11 07:36 | Observation (INO) | payer OTHER ==
[~2017-04-11] VITALS: Ht 182.9 cm; Wt 101.7 kg
[2017-04-11] VITALS (7 sets, daily range): BP systolic 124–139; BP diastolic 82–95; PULSE 63–76; TEMP 36.5–37; O2SAT 94–97; Ht 182.9 cm; Wt 101.7 kg
[2017-04-11] MEDS ORDERED: SODIUM CHLORIDE 0.9% 1000ML 1,000 ML IV STA (07:45)
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
[2017-04-11] MEDS ORDERED: ATOR-22 PO (08:12)
--- NOTE | 2017-04-11 08:18 | DIAGNOSTIC IMAGING REPORT ---
HEAD WITHOUT CONTRAST (CT) CLINICAL HISTORY: 51 years-old Male with HEADACHE. Acute headache TECHNIQUE: Multiple axial CT images of the head were obtained without contrast. A dose lowering technique was utilized adhering to the principles of ALARA. CT DOSE: 614.27 mGy.cm COMPARISON: CT head 11/13/2016, brain MRI 11/14/2016. FINDINGS: No acute intracranial hemorrhage, midline shift, intracranial mass, hydrocephalus, territorial ischemia or abnormal extra-axial collection. Mild asymmetric prominence of the right frontal horn lateral ventricle in comparison to the left is unchanged. The calvarium is intact. The mastoid air cells, and middle ear cavities are clear. Mild mucosal thickening of the posterior left maxillary sinus is partially imaged. Mild to moderate mucosal thickening of the ethmoid air cells and right sphenoid sinus. Soft tissues and orbits are unremarkable. IMPRESSION: No acute intracranial abnormality. The above report was generated using voice recognition software. It may contain grammatical, syntax or spelling errors. Electronically signed by: Nahun Meraz M.D. 04/11/2017 8:17 AM Dictated Date/Time: 04/11/2017 8:13 AM
[2017-04-11 08:21] LABS: BASO % 0.5 %; BASO ABS # 0.03 K/uL (0-0.2); EOS % 4.8 %; EOS ABS # 0.28 K/uL (0-0.5); HEMATOCRIT 41.4 % (42-52); HEMOGLOBIN 15.2 g/dL (14.0-18.0); IG# 0.03 K/uL (0.00-0.02); LYMPH % 23.2 %; LYMPH ABS # 1.36 K/uL (1.2-3.4); MEAN CELL VOLUME 85.5 fL (80-100); MEAN CORPUSCULAR HEMOGLOBIN 31.4 pg (25-34); MEAN CORPUSCULAR HGB CONC 36.7 g/dl (32-36); MONO % 10.4 %; MONO ABS # 0.61 K/uL (0.11-0.59); NEUT % 60.6 %; NEUT ABS # 3.56 K/uL (1.4-6.5); PLATELET COUNT 192 K/uL (130-400); RED CELL DISTRIBUTION WIDTH CV 13.2 % (11.5-14.5); RED CELL DISTRIBUTION WIDTH SD 41.3 fL (36.4-46.3); WHITE BLOOD COUNT 5.87 K/uL (4.8-10.8)
[2017-04-11 08:42] LABS: ALBUMIN 3.8 gm/dl (3.4-5.0); CALCIUM 8.9 mg/dl (8.5-10.1); CREATININE 0.89 mg/dl (0.60-1.40); POTASSIUM 3.4 mmol/L (3.5-5.1)
[2017-04-11 08:52] LABS: TOTAL PROTEIN 7.5 gm/dl (6.4-8.2)
[2017-04-11] MEDS ORDERED: POTASSIUM CHLORIDE 10 MEQ TABCR PO SCH (10:25)
[2017-04-11] MEDS ORDERED: MAGNESIUM HYDROXIDE SUSP 30 ML UDC PO PRN (10:30)
[2017-04-11] MEDS ORDERED: ONDANSETRON INJ 2 MG/ML 2 ML VIAL IV PRN (10:30)
[2017-04-11] MEDS ORDERED: ACETAMINOPHEN 325 MG TAB PO PRN (10:30)
[2017-04-11] MEDS ORDERED: ALUMINUM/MAGNESIUM/SIMETH (MAALOX MAX) 30 ML UDC PO PRN (10:30)
[2017-04-11] MEDS ORDERED: HydrALAZINE HCL 20 MG/ML VIAL IV. PRN (10:30)
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
--- NOTE | 2017-04-11 12:22 | DIAGNOSTIC IMAGING REPORT ---
ORBIT RADIOGRAPHS 3 VIEWS HISTORY: pre-MRI screening. COMPARISON: November 14, 2016 FINDINGS: There are no radiopaque foreign bodies identified within the orbits. There is a probable right maxillary sinus retention cyst/polyp IMPRESSION: No radiopaque foreign bodies identified within the orbits. Electronically signed by: Gomez Brown M.D. 04/11/2017 12:20 PM Dictated Date/Time: 04/11/2017 12:19 PM
--- NOTE | 2017-04-11 13:35 | DIAGNOSTIC IMAGING REPORT ---
BRAIN COMBO CLINICAL HISTORY: 51 years-old Male presenting with Syncope, dizziness, blurred vision. TECHNIQUE: Multisequence, multiplanar MR imaging of the brain was performed before and after the administration of intravenous contrast. IV contrast: 9.5 mL of Gadavist. COMPARISON: 11/14/[address] head performed earlier the same day. FINDINGS: Ventricles and sulci normal in size. Brain parenchyma normal in appearance with preserved white-white differentiation. No mass effect or midline shift. No restricted diffusion to suggest acute ischemia. No hemorrhage. No extra-axial fluid collection. T2 skull base flow voids preserved. No abnormal parenchymal enhancement allowing for motion degradation of postcontrast imaging. Bone marrow signal intensity within the calvarium within normal limits. Polypoid mucosal thickening in the left maxillary sinus. Mucosal thickening in the right sphenoid sinus. IMPRESSION: 1. No acute intracranial pathology. No abnormal enhancement. Electronically signed by: Rashid Langley M.D. 04/11/2017 1:34 PM Dictated Date/Time: 04/11/2017 1:29 PM
[2017-04-11] MEDS: SODIUM CHLORIDE 0.9% 1000ML 1,000 ML IV SCH (14:01)
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
[2017-04-11] MEDS ORDERED: IV FLUIDS COMPLETED PRN (16:15)
--- NOTE | 2017-04-11 16:39 | EEG Procedure Note ---
EEG Procedure Note Date of Service Apr 11, 2017. Start / End Times Start Time: 11:07 AM End Time: 11:27 AM Referring Physician CELY Melendez History This is a 51-year-old male who presents with syncope. EEG for further evaluation of possible seizure etiology. Home Medication List Scheduled Amlodipine (Norvasc), 10 MG PO DAILY Aspirin (Aspirin Low Dose), 81 MG PO QAM Atorvastatin (Lipitor), 20 MG PO DAILY Cholecalciferol (Vitamin D3), 2,000 INTER.UNIT PO DAILY Multivitamin (Multivitamin), 1 TAB PO DAILY Inpatient Medication List Current Inpatient Medications Medications (Trade) Dose Ordered Sig/Je Route Start Time Stop Time Status Last Admin Dose Admin Sodium Chloride 1,000 ml @ 80 mls/hr [id number] IV 04/11/17 12:52 05/11/17 12:51 04/11/17 14:01 80 MLS/HR Acetaminophen (Tylenol Tab) 650 mg Q4H PRN PO 04/11/17 10:30 05/11/17 10:29 Al Hydrox/Mg Hydrox/Simethicone (Maalox Max Susp) 15 ml Q4H PRN PO 04/11/17 10:30 05/11/17 10:29 Magnesium Hydroxide (Milk Of Magnesia Susp) 30 ml Q12H PRN PO 04/11/17 10:30 05/11/17 10:29 Ondansetron HCl (Zofran Inj) 4 mg Q6H PRN IV 04/11/17 10:30 05/11/17 10:29 Amlodipine Besylate (Norvasc Tab) 10 mg DAILY PO 04/12/17 09:00 05/12/17 08:59 Aspirin (Ecotrin Tab) 81 mg QAM PO 04/12/17 09:00 05/12/17 08:59 Atorvastatin Calcium (Lipitor Tab) 20 mg DAILY PO 04/12/17 09:00 05/12/17 08:59 Hydralazine HCl (HydrALAZINE INJ) 10 mg Q6 PRN IV. 04/11/17 10:30 05/11/17 10:29 Potassium Chloride (Klor-Con M10) 20 meq TODAY@1025 PO 04/11/17 10:25 04/11/17 20:00 04/11/17 11:34 20 MEQ Miscellaneous (Iv Fluids Completed) 1 ea PRN PRN N/A 04/11/17 16:15 04/11/18 16:14 Description This is a 21 electrode EEG with a single channel dedicated to limited EKG. The electrodes were placed in accordance with the International 10-20 system. At the start of the recording the patient was in an awake state. Background was well organized and composed of symmetric mixed alpha and beta frequencies. There was a symmetric well-formed moderate amplitude 8-9 Hz posterior dominant rhythm that was reactive to eye opening and closure. Hyperventilation was not done. Intermittent photic stimulation at various frequencies produced no abnormalities. Sleep was indicated by vertex waves and symmetric sleep spindles. Interpretation This is a normal awake and asleep routine EEG. There was no electrographic seizures or epileptiform discharges. Clinical Correlation A normal EEG does not rule out epilepsy if there is a strong clinical suspicion.
--- NOTE | 2017-04-11 17:30 | ECHOCARDIOGRAM REPORT ---
*NOTICE TO RECEIVING [employer] This information is strictly Confidential and protected under [place] law. [place] law prohibits you from making any further disclosure of this information unless further disclosure is expressly permitted by the written consent of the person to whom it pertains or is authorized by law. A general authorization for the release of medical or other information is not sufficient for this purpose. Hospital accepts no responsibility if the information is made available to any other person, INCLUDING THE PATIENT. Interpretation Summary * Name: JENNIFER YUNG Study Date: 04/11/2017 03:07 PM BP: 147/106 mmHg * Patient Location: [facility]\S\N277\S\2 HR: 80 * : 1965 (M/d/yyyy) Gender: Male Height: 72 in * Age: 51 yrs Ethnicity: [place] Weight: 216 lb * Ordering Physician: Leonora Duenas * Referring Physician: Self, Referred * Performed By: Pippa Alfaro RDCS * * Reason For Study: Syncope * BSA: 2.2 m2 * -- Conclusions -- * 1. Normal LV size, borderline concentric LVH. * 2. Normal LV function. LVEF 55-60%. * 3. Normal RV size and function. * 4. Trace AI, MR, PI and TR. * 5. Normal est RA and PA pressures. * 6. Compared with prior study on 11/14/2016: No significant changes. Procedure Details * A complete two-dimensional transthoracic echocardiogram was performed (2D, M-mode, Doppler and color flow Doppler). Left Ventricle * The left ventricle is grossly normal size. * There is normal left ventricular wall thickness. * Ejection Fraction = 55-60%. * No regional wall motion abnormalities noted. Right Ventricle * The right ventricle is grossly normal size. * The right ventricular systolic function is normal as assessed by tricuspid annular plane systolic excursion (TAPSE) (normal >1.5 cm). Atria * The left atrial size is normal. * Right atrial size is normal. * No ASD detected; PFO is not assessed. Mitral Valve * The mitral valve is grossly normal. * There is no mitral valve stenosis. * There is trace mitral regurgitation. Tricuspid Valve * There is no tricuspid stenosis. * There is trace tricuspid regurgitation. Aortic Valve * The aortic valve opens well. * The aortic valve is trileaflet. * No hemodynamically significant valvular aortic stenosis. * Trace aortic regurgitation. Pulmonic Valve * The pulmonary valve is inadequately visualized, but the Doppler data is adequate for interpretation. * There is no pulmonic valvular stenosis. * Mild pulmonic valvular regurgitation. Great Vessels * The aortic root and proximal ascending aorta are normal sized. Pericardium/Pleural * There is no pericardial effusion. Great Vessels * There is no evidence of pulmonary hypertension. The PA systolic pressure is less than 36 mmHg. * Normal inferior vena cava size and collapsability with sniff indicates a normal right atrial pressure of 3 mmHg MMode 2D Measurements and Calculations IVSd 1.2 cm IVSs 1.4 cm LVIDd 6.0 cm LVIDs 4.0 cm LVPWd 1.0 cm LVPWs 1.7 cm IVS/LVPW 1.2 FS 32.5 % EDV(Teich) 179.0 ml ESV(Teich) 71.6 ml EF(Teich) 60.0 % EDV(cubed) 214.4 ml ESV(cubed) 65.8 ml EF(cubed) 69.3 % % IVS thick 15.7 % % LVPW thick 62.4 % LV mass(C)d 290.8 grams LV mass(C)dI 132.1 grams/m\S\2 LV mass(C)s 250.3 grams LV mass(C)sI 113.7 grams/m\S\2 SV(Teich) 107.4 ml SI(Teich) 48.8 ml/m\S\2 SV(cubed) 148.5 ml SI(cubed) 67.5 ml/m\S\2 Ao root diam 3.2 cm Ao root area 7.9 cm\S\2 LA dimension 3.5 cm LA/Ao 1.1 LVAd ap4 45.5 cm\S\2 LVLd ap4 9.6 cm EDV(MOD-sp4) 180.0 ml EDV(sp4-el) 182.7 ml LVAs ap4 27.0 cm\S\2 LVLs ap4 8.1 cm ESV(MOD-sp4) 84.7 ml ESV(sp4-el) 76.6 ml EF(MOD-sp4) 53.0 % EF(sp4-el) 58.1 % LVAd ap2 44.9 cm\S\2 LVLd ap2 9.8 cm EDV(MOD-sp2) 177.1 ml EDV(sp2-el) 173.6 ml LVAs ap2 24.5 cm\S\2 LVLs ap2 8.2 cm ESV(MOD-sp2) 69.8 ml ESV(sp2-el) 62.3 ml EF(MOD-sp2) 60.6 % EF(sp2-el) 64.1 % LVLd %diff 2.1 % EDV(MOD-bp) 178.8 ml LVLs %diff 1.4 % ESV(MOD-bp) 76.2 ml EF(MOD-bp) 57.4 % SV(MOD-sp4) 95.3 ml SI(MOD-sp4) 43.3 ml/m\S\2 SV(MOD-sp2) 107.3 ml SI(MOD-sp2) 48.7 ml/m\S\2 SV(MOD-bp) 102.5 ml SI(MOD-bp) 46.6 ml/m\S\2 SV(sp4-el) 106.1 ml SI(sp4-el) 48.2 ml/m\S\2 SV(sp2-el) 111.3 ml SI(sp2-el) 50.6 ml/m\S\2 Doppler Measurements and Calculations MV E max jeannie 73.2 cm/sec MV A max jeannie 62.6 cm/sec MV E/A 1.2 MV dec time 0.27 sec Ao V2 max 136.4 cm/sec Ao max PG 7.4 mmHg Ao max PG (full) 3.8 mmHg LV V1 max PG 3.6 mmHg LV V1 max 95.1 cm/sec PA V2 max 82.8 cm/sec PA max PG 2.7 mmHg PI max jeannie 159.5 cm/sec PI max PG 10.3 mmHg PI dec slope 142.3 cm/sec\S\2 PI P1/2t 328.2 msec TR max jeannie 220.4 cm/sec
[2017-04-11] MEDS ORDERED: MECLIZINE HCL 25 MG TAB PO PRN (23:30)
[2017-04-12] VITALS (7 sets, daily range): BP systolic 122–132; BP diastolic 75–85; PULSE 62–77; TEMP 36.3–36.9; O2SAT 94–97
[2017-04-12] MEDS: SODIUM CHLORIDE 0.9% 1000ML 1,000 ML IV SCH (00:47)
[2017-04-12 07:30] LABS: HEMATOCRIT 40.4 % (42-52); HEMOGLOBIN 14.3 g/dL (14.0-18.0); MEAN CELL VOLUME 87.1 fL (80-100); MEAN CORPUSCULAR HEMOGLOBIN 30.8 pg (25-34); MEAN CORPUSCULAR HGB CONC 35.4 g/dl (32-36); MEAN PLATELET VOLUME 9.2 fL (7.4-10.4); PLATELET COUNT 172 K/uL (130-400); RED CELL DISTRIBUTION WIDTH CV 13.2 % (11.5-14.5); WHITE BLOOD COUNT 5.32 K/uL (4.8-10.8)
[2017-04-12 07:58] LABS: CALCIUM 8.2 mg/dl (8.5-10.1); CREATININE 0.97 mg/dl (0.60-1.40); POTASSIUM 3.8 mmol/L (3.5-5.1)
[2017-04-12] MEDS ORDERED: AMLODIPINE BESYLATE 5 MG TAB PO SCH (09:00)
[2017-04-12] MEDS ORDERED: ASPIRIN 81 MG ECTAB PO SCH (09:00)
[2017-04-12] MEDS ORDERED: ATORVASTATIN 20 MG TAB PO SCH (09:00)
--- NOTE | 2017-04-12 10:40 | Neurology Consultation ---
Neurology Consultation Date of Consultation: Apr 12, 2017. Attending Physician: Malik Francis MD, PhD Primary Care Physician: Jon Jaimes M.D. Reason for Consultation: Patient is a 51-year-old, who was asked to see the request of Dr. Francis and Leonora Alvarez, for neurologic consultation regarding syncope and other issues. History of Present Illness Source: patient, caregiver, clinic records, hospital records I 1st saw this patient in November of 2016, when he was admitted to our institution for some left sided headache and numbness along with some right lower extremity weakness and numbness. At that time, CT scan of the head, MRI of the brain, MR angiography of the head and neck, echocardiogram, and laboratory studies were within normal limits. He was continued on 81 milligram aspirin tablet daily. His blood pressure was elevated during that admission. Patient had a significant concussion in October of 2014. He was hit on the head at work with a large metal tray, knocked to the ground and had a loss of consciousness for approximately 1 minute. He had some headaches, ringing in his left ear, blurry vision, dizziness and balance problems, along with memory and concentration problems for the next several months. He ended up missing 4- 5 months of work before returning. A lot of these symptoms including his headaches comma memory concentration problems resolved. He has had some improvement of the tinnitus, blurry vision, dizziness, and balance problems but feels more recently they have gotten worse. He will get episodes that wax and wane over time with "good and bad days". On the more symptomatic days he will have some blurriness of vision with some decreased ability to focus. He believes this is in both eyes and is not double and there is no loss of vision. On those days if he is in the shower and his eyes are closed he has noted that his balance is off and gets lightheaded, particularly as he is moving his head around to shampoo it. It sounds more of a vertiginous balance issue than it does a lightheadedness or near syncope symptoms. On these more symptomatic days he also has a sense of balance issue and a rushing feeling in his head when he stands up or turns his head quickly. Rarely, he will pass out but there are no details regarding this. On his better days, he will not have hardly any symptoms at all. He remembers after his concussion he had vestibular therapy which helped his symptoms. His primary care physician 1 week ago gave him meclizine to take and he had been taking it at night. On the morning of April 11, he got up usual high after 5 o'clock. He felt somewhat off balance and lightheaded as typically felt on a symptomatic day. He took a shower and felt that his balance was off and somewhat lightheaded. He had not eaten but did have a little bit of juice with the pills that he took after a shower. He went to get dressed remembers picking up his T-shirt and the next thing he knows he was waking up on the floor with EMS around him. His apparently heard a thud and saw him on the ground not moving. He was not stiff or jerking. He did not wet himself or bite his tongue. EMS arrived tended 15 minutes later and aroused him with sternal rub. He remembers feeling scared with this. For some reason, he was given 0.5 milligrams of Ativan IV in the ambulance ride to the hospital. He says that this helped his feelings of lightheaded and movement. He arrived to the emergency room on April 11 at 0745 hours with a blood pressure of 141/89, pulse is 71 regular, respiratory rate 17, and O2 saturation 96 percent. His blood pressure was elevated in the emergency room and his exam neurologically was nonfocal. He did have some visual symptoms and some nonspecific dizziness in the ER helped with meclizine. Chest x-ray was unremarkable CT scan of the head was unremarkable. Carotid ultrasound 1 week ago was unremarkable. MRI of the brain yesterday with without contrast was unremarkable. Echocardiogram was no change compared to the previous. EEG was normal during the wakeful state with no focal abnormalities or potentially epileptogenic discharges. Cardiology consult was done by Dr. Kamara who found no cardiac abnormalities. Laboratory studies were normal including CBC, Chem profile, TSH, sed rate, and urine tox screen. This morning, he feels back to normal with no symptoms. Past Medical/Surgical History Medical Problems: (1) Abdominal muscle strain Status: Acute (2) Abdominal pain Status: Acute (3) Abdominal pain Status: Acute (4) Altered mental status Status: Acute (5) Cardiomegaly Status: Acute (6) Cervical radiculopathy Status: Acute (7) Chest pain Status: Acute (8) Cholecystitis Status: Acute (9) Colitis Status: Acute (10) Constipation Status: Acute (11) Dehydration Status: Acute (12) Dizziness Status: Acute (13) Fever Status: Acute (14) Incarcerated umbilical hernia Status: Acute (15) Infected insect bite of buttock Status: Acute (16) Left sided abdominal pain Status: Acute (17) Left sided abdominal pain Status: Acute (18) LUQ abdominal pain Status: Acute (19) Myalgia Status: Acute (20) Nausea, vomiting, and diarrhea Status: Acute (21) Right knee injury Status: Acute (22) Right leg weakness Status: Acute (23) Syncope Status: Acute (24) Umbilical hernia Status: Acute (25) Weakness Status: Acute Hypertension Dyslipidemia Vitamin-D deficiency History of trigeminal neuralgia in the past, with no further details regarding this. The Concussion, October 2014, with typical post concussive symptomatology Left C8 radiculopathy with cervical pain in the summer of 2015, currently improved with no ongoing neck pain. History of sinusitis Post wisdom teeth removal Umbilical hernia repair in 2013 with revision, abscess training, and ventral hernia repair in February 2016 History of sinus surgery 2009 Colon polyp and past Family History Father age 72 of a pulmonary condition. He also had hypertension and diabetes. 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 He occasionally smokes a cigarette and will go through pack of cigarettes about once every several months. He occasionally chews tobacco and will go through a can about every 2 weeks ( mostly during hunting season) Smoking Status: Current some day smoker Smokeless Tobacco Use: Yes Alcohol Use: none Drug Use: none Marital Status: single, in relationship Housing Status: lives with family Occupation Status: employed Allergies Coded Allergies: Iodinated Diagnostic Agents (Unverified Allergy, Unknown, ITCHY, 03/13/17) Current Inpatient Medications Current Inpatient Medications Medications (Trade) Dose Ordered Sig/Je Route Start Time Stop Time Status Last Admin Dose Admin Sodium Chloride 1,000 ml @ 80 mls/hr [id number] IV 04/11/17 12:52 05/11/17 12:51 04/12/17 00:47 80 MLS/HR Acetaminophen (Tylenol Tab) 650 mg Q4H PRN PO 04/11/17 10:30 05/11/17 10:29 Al Hydrox/Mg Hydrox/Simethicone (Maalox Max Susp) 15 ml Q4H PRN PO 04/11/17 10:30 05/11/17 10:29 Magnesium Hydroxide (Milk Of Magnesia Susp) 30 ml Q12H PRN PO 04/11/17 10:30 05/11/17 10:29 Ondansetron HCl (Zofran Inj) 4 mg Q6H PRN IV 04/11/17 10:30 05/11/17 10:29 Amlodipine Besylate (Norvasc Tab) 10 mg DAILY PO 04/12/17 09:00 05/12/17 08:59 04/12/17 08:50 10 MG Aspirin (Ecotrin Tab) 81 mg QAM PO 04/12/17 09:00 05/12/17 08:59 04/12/17 08:50 81 MG Atorvastatin Calcium (Lipitor Tab) 20 mg DAILY PO 04/12/17 09:00 05/12/17 08:59 04/12/17 08:50 20 MG Hydralazine HCl (HydrALAZINE INJ) 10 mg Q6 PRN IV. 04/11/17 10:30 05/11/17 10:29 Miscellaneous (Iv Fluids Completed) 1 ea PRN PRN N/A 04/11/17 16:15 04/11/18 16:14 Meclizine HCl (Antivert Tab) 25 mg DAILY PRN PO 04/11/17 23:30 05/11/17 23:29 04/12/17 00:46 25 MG Review of Systems Constitutional: No weakness, No fatigue Eyes: No worsening of vision, No diplopia ENT: + hearing loss, + tinnitus Respiratory: No cough, No shortness of breath Cardiovascular: No chest pain, No palpitations Abdomen: No pain, No nausea Musculoskeletal: No joint pain, No muscle pain Genitourinary - Male: No dysuria, No urinary incontinence Neurologic: No memory loss, No weakness, No numbness/tingling, No balance problems Psychiatric: No depression symptoms, No anxiety Endocrine: No fatigue Hematologic / Lymphatic: No abnormal bleeding/bruising Integumentary: No rash Allergic / Immunologic: No hives Physical Exam Vital Signs (Past 24 Hrs): Date Time Temp Pulse Resp B/P (MAP) Pulse Ox O2 Delivery O2 Flow Rate FiO2 04/12/17 07:05 36.8 64 18 132/85 (101) 96 Room Air 04/12/17 04:00 97 Room Air 04/12/17 04:00 36.3 77 16 123/75 (91) 94 Room Air 04/11/17 23:59 97 Room Air 04/11/17 23:48 37.0 76 18 137/86 (103) 94 Room Air 04/11/17 20:00 97 Room Air 04/11/17 19:40 36.6 72 20 124/83 (97) 97 Room Air 04/11/17 16:00 97 Room Air 04/11/17 16:00 36.5 64 18 139/91 (107) 97 Room Air 04/11/17 11:54 36.6 63 16 137/93 (108) 96 Room Air 71 138/82 (100) 75 133/95 (108) 04/11/17 11:12 65 20 145/92 94 Room Air 04/11/17 10:23 69 18 147/106 98 Room Air Patient is right-handed. The patient is awake and alert. Speech is normal without aphasia or dysarthria. Mentation and thought processes are intact with orientation and normal fund of knowledge. Mood and affect are normal and appropriate. Appearance and grooming are normal. Long and short-term memory are intact. The discs are sharp with positive venous pulsations. There are no exudates, hemorrhages, or blood vessel changes seen. Pupils are 4mm bilaterally and reactive to light. Extraocular eye muscles are intact without nystagmus. Visual acuity and visual granado seem normal grossly to confrontation. There are no deficits to sensation of the face bilaterally. Corneal reflexes are positive bilaterally. Facial strength and symmetry is normal bilaterally. Hearing seems intact grossly to voice and finger rub. Palate moves well without asymmetry. There is normal sternocleidomastoid and trapezius strength bilaterally. Tongue is midline with good strength bilaterally. Neck is with full range of motion without discomfort. There are no cervical bruits. There are no cranial or ocular bruits. Heart is without murmur. Cervical, thoracic, and lumbar spine are nontender to palpation. Gait is narrow based. Stance is normal eyes open. He sways some with eyes closed but he is not pulled in any particular direction. With outstretched arms there is no drift. There are no resting, postural, or action tremors. There is no ataxia with [id number] testing. There is good facility in the hands. There are no abnormal involuntary movements noted. Motor strength is 5/5 diffusely in the arms bilaterally including deltoids, biceps, brachioradialis, wrist flexors and extensors, web services manager, and intrinsic hand muscles. Motor strength is 5/5 diffusely in the legs bilaterally including hip flexors, quadriceps, hamstring, gastrocnemius, tibialis anterior, tibialis posterior, and peroneii muscles bilaterally. Toe extensors are normal and there is good bulk in the extensor digitorum brevis muscle bilaterally. The limbs have good tone without rigidity or spasticity, and there is no atrophy noted. Muscle bulk is normal, there is no tenderness, no myotonia noted to percussion, and no fasciculations seen. Sensory examination is intact to pin and touch throughout all four limbs. Reflexes are 1/4 in the biceps, triceps, brachioradialis, quadriceps, and Achilles tendons bilaterally. Toes are downgoing with plantar stimulation bilaterally. Peripheral pulses are present and of normal quality distally in all four limbs. There is no peripheral edema noted. Laboratory Results Past 24 Hours: 04/12/17 07:14 04/12/17 07:14 Test 04/11/17 14:22 04/12/17 07:14 Erythrocyte Sedimentation Rate 16 mm/hr (0-14) Troponin I < 0.015 ng/ml (0-0.045) C-Reactive Protein < 0.29 mg/dl (0-0.29) Vitamin B12 Level 524 pg/mL (211-911) Folate 20.15 ng/mL (>5.38) Red Blood Count 4.64 M/uL (4.7-6.1) Mean Corpuscular Volume 87.1 fL (80-100) Mean Corpuscular Hemoglobin 30.8 pg (25-34) Mean Corpuscular Hemoglobin Concent 35.4 g/dl (32-36) RDW Standard Deviation 42.0 fL (36.4-46.3) RDW Coefficient of Variation 13.2 % (11.5-14.5) Mean Platelet Volume 9.2 fL (7.4-10.4) Anion Gap 6.0 mmol/L (3-11) Est Creatinine Clear Calc Drug Dose 111.2 ml/min Estimated GFR () 104.3 Estimated GFR (Non- 90.0 BUN/Creatinine Ratio 18.6 (10-20) Calcium Level 8.2 mg/dl (8.5-10.1) Magnesium Level 2.2 mg/dl (1.8-2.4) Imaging BRAIN COMBO CLINICAL HISTORY: 51 years-old Male presenting with Syncope, dizziness, blurred vision. TECHNIQUE: Multisequence, multiplanar MR imaging of the brain was performed before and after the administration of intravenous contrast. IV contrast: 9.5 mL of Gadavist. COMPARISON: 11/14/[address] head performed earlier the same day. FINDINGS: Ventricles and sulci normal in size. Brain parenchyma normal in appearance with preserved white-white differentiation. No mass effect or midline shift. No restricted diffusion to suggest acute ischemia. No hemorrhage. No extra-axial fluid collection. T2 skull base flow voids preserved. No abnormal parenchymal enhancement allowing for motion degradation of postcontrast imaging. Bone marrow signal intensity within the calvarium within normal limits. Polypoid mucosal thickening in the left maxillary sinus. Mucosal thickening in the right sphenoid sinus. IMPRESSION: 1. No acute intracranial pathology. No abnormal enhancement. Electronically signed by: Rashid Langley M.D. 04/11/2017 1:34 PM Impression 1. Syncope I am uncertain as to what this patient's event was. He may have lost his balance, fallen, hit his head and had a concussion resulting in some decreased responsiveness. I cannot entirely exclude orthostasis or vasovagal syncope. This is particularly true since he was in a hot shower immediately prior to this event. He does not have any evidence of orthostasis by checking blood pressure and pulse lying, sitting, and standing multiple times since admission. Given his description of the symptoms I am more concerned about an inner ear abnormality with vertigo as opposed to true orthostasis. He does not seem to have any cardiac abnormalities. He has no central nervous system abnormalities and I doubt that this represents a seizure disorder either primary or secondary. Extensive testing including multiple MRIs, MR angiography of the head and neck, EEG, have all been normal over the last few months to currently. Currently he is asymptomatic and has no focal neurologic signs, meningeal signs , or encephalopathy. Given his history and the times that I have met him, I cannot entirely exclude psychological component to his symptoms. 2. Hypertension, not adequately controlled on admission. 3. Snoring. Cannot exclude sleep apnea which may be contributing to some of his issues. Plan 1. I see no need for additional neurologic testing at this time. 2. Consider meclizine 25 milligrams up to 3 times a day as needed. 3. Consider sleep evaluation as an outpatient. 4. I would recommend vestibular therapy as an outpatient for this patient again. He can follow up as an outpatient with Neurology with Dr. Lala who has seen him in the past. Overall, I spent a total of 95 minutes with this patient including records review, discussion of the case with caregivers and clinicians (including Leonora Alvarez), and direct patient evaluation and discussion.
[2017-04-12] MEDS ORDERED: ANT25 PO (12:11)
--- NOTE | 2017-04-12 12:18 | Discharge Instructions ---
Discharge Instructions Date of Service Apr 12, 2017. Admission Reason for Admission: Syncope Discharge Discharge Diagnosis / Problem: Syncope Discharge Goals Goal(s): Decrease discomfort, Improve function, Increase independence Activity Recommendations Activity Limitations: resume your previous activity . Instructions / Follow-Up Instructions / Follow-Up Syncope: - It is unclear what could have caused you to pass out. Your Holter monitor did not reveal findings and you had a normal sinus rhythm on monitor here. - Cardiology would like to set you up with an event monitor which is similar to a Holter but will monitor your heart over a longer period of time to see if anything is captured - Your brain MRI and EEG (testing your electrical activity of your brain) was normal. Inner Ear Issues: - Some of your symptoms could be from multiple causes but I think exploring the inner ear may be of benefit. - Please keep your appointment with your ENT (ears, nose, throat) doctor on Monday. - Will provide a prescription to have what is called vestibular therapy to help with balance and inner ear issues -- You may have to see what physical therapy places offer this and talk with your family doctor for assistance - Recommend to use Meclizine. You can use this up to 4 times a day if needed but it may be a trial to see what works for you. -- If it does not make you drowsy you may want to consider taking it 2-3 times a day on a regular basis to help prevent symptoms. -- A prescription was sent to the pharmacy but you may use the previous prescription from your family doctor instead - Your blood pressures have been good since admission and will not make adjustments - Some research shows that low sodium (salt) diet can help with vertigo/ lightheadedness. This will also help with blood pressure and overall heart health. Current Hospital Diet Patient's current hospital diet: Low Sodium Diet (2gm Na) Discharge Diet Recommended Diet: Low Sodium Diet (2gm Na) Pending Studies Studies pending at discharge: no Medical Emergencies . Who to Call and When: Medical Emergencies: If at any time you feel your situation is an emergency, please call 911 immediately. . Non-Emergent Contact Non-Emergency issues call your: Primary Care Provider Call Non-Emergent contact if: you have any medication questions . . "Provider Documentation" section prepared by Leonora Duenas. .
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
== END 2017-04-12 17:00 | disposition home or self-care (01) ==
LOC: EDBD 07:36 → C.EDA 07:37 → C.MED 10:34 → ENRESERV 11:03
PROVIDERS: ADMIT Hospitalist; ATTEND Hospitalist
DX: R55 Syncope and collapse (principal); R42 Dizziness and giddiness; R20.0 Anesthesia of skin; R53.1 Weakness; I10 Essential (primary) hypertension; J32.9 Chronic sinusitis, unspecified; E78.5 Hyperlipidemia, unspecified; M54.12 Radiculopathy, cervical region; E55.9 Vitamin D deficiency, unspecified; F17.210 Nicotine dependence, cigarettes, uncomplicated; Z91.041 Radiographic dye allergy status; Z79.82 Long term (current) use of aspirin; Z82.49 Family history of ischemic heart disease and other diseases of the circulatory system; Z83.3 Family history of diabetes mellitus

== ENCOUNTER 2017-04-23 17:54 | Inpatient (IN) | payer OTHER ==
[~2017-04-23] VITALS: Ht 182.9 cm; Wt 102.4 kg
[~2017-04-23 17:54] MED LIST changes: +ANT25 PO; +ATOR-22 PO; -ATOR10TA82 PO; -VBRT100 PO
[2017-04-23] MEDS ORDERED: SODIUM CHLORIDE 0.9% 1000ML 1,000 ML IV SCH (18:18)
--- NOTE | 2017-04-23 18:27 | DIAGNOSTIC IMAGING REPORT ---
CT HEAD WITHOUT CONTRAST (CT) CLINICAL HISTORY: Stroke like symptoms COMPARISON STUDY: 04/11/2017 TECHNIQUE: Axial CT of the brain is performed from the vertex to the skull base. IV contrast was not administered for this examination. A dose lowering technique was utilized adhering to the principles of ALARA. CT DOSE: 614.27 mGy.cm FINDINGS: No intra or extra-axial mass lesions are visualized. There is no CT evidence of acute cortical infarction. There is no evidence of midline shift. There is no acute hemorrhage. No calvarial fractures are visualized. There is no evidence of pathologic ventricular dilatation. There is mild sphenoid and ethmoid mucosal thickening. Postsurgical changes are present within the maxillary and ethmoid sinuses. IMPRESSION: No change from the preceding study. No acute intracranial findings. Electronically signed by: Gomez Brown M.D. 04/23/2017 6:26 PM Dictated Date/Time: 04/23/2017 6:24 PM
[2017-04-23] MEDS ORDERED: PANT20TA2 PO (18:29)
[2017-04-23] MEDS ORDERED: MECL1TAB42 PO (18:29)
[2017-04-23 18:44] LABS: BASO % 0.6 %; BASO ABS # 0.03 K/uL (0-0.2); EOS % 5.8 %; HEMATOCRIT 41.9 % (42-52); HEMOGLOBIN 14.8 g/dL (14.0-18.0); IG# 0.04 K/uL (0.00-0.02); LYMPH % 29.8 %; LYMPH ABS # 1.54 K/uL (1.2-3.4); MEAN CELL VOLUME 86.2 fL (80-100); MEAN CORPUSCULAR HEMOGLOBIN 30.5 pg (25-34); MEAN CORPUSCULAR HGB CONC 35.3 g/dl (32-36); MEAN PLATELET VOLUME 9.2 fL (7.4-10.4); MONO % 9.1 %; MONO ABS # 0.47 K/uL (0.11-0.59); NEUT % 53.9 %; NEUT ABS # 2.79 K/uL (1.4-6.5); PLATELET COUNT 197 K/uL (130-400); RED CELL DISTRIBUTION WIDTH CV 13.2 % (11.5-14.5); RED CELL DISTRIBUTION WIDTH SD 41.6 fL (36.4-46.3); WHITE BLOOD COUNT 5.17 K/uL (4.8-10.8)
--- NOTE | 2017-04-23 18:50 | EMERGENCY ROOM VISIT NOTE ---
History Report prepared by Héctor: Clay Hogan Under the Supervision of: Dr. Michelle Giles D.O. First contact with patient: 18:06 Chief Complaint: STROKE SYMPTOMS Stated Complaint: NOT MAKING SENSE, TALKING PAST Nursing Triage Summary: pt girlfriend reports pt started appearing confused pt was driving and seemed confused about this . pt states I live with my mother mother is with pt and states " of course I live with you, " pt speech appears clear and appropriate . pt does reports blurred vision unable to tell when it started sx started a 1600 History of Present Illness The patient is a 51 year old male who presents to the Emergency Room with complaints of constant altered mental status beginning at 1600 today. The patient's states that the patient was acting normally throughout the morning, but lost awareness of where he was when driving following lunch. She states that when the patient arrived home, he did not recognize his house or his personal vehicle. The patient's reports that the patient has been exhibiting general memory loss, and unawareness to time and place since the onset of his symptoms. She denies that the patient has experienced any episodes similar to this in the past. The patient's notes that the patient was in the ED several weeks ago due to an episode of syncope, but reports that the patient did not faint today. The patient notes a history of concussions, but denies any pain, complications with bowel movements, complications with urination, headaches, numbness or tingling, dizziness, lightheadedness, or wooziness. The patient's states that the patients blood pressure was a subjective 104/63 prior to the onset of his symptoms, but alicia to 166/102 after his symptoms presented. She notes that the patients sugars were 113 MANAGER PROVIDER RELATIONS in the ED. EMR reviewed, the patient was recently admitted for dizziness/syncope; normal echo, normal MRI, normal EEG. Source of History: patient, spouse/significant other Onset: 1600 Today Position: other (Global ) Quality: other (Confusion) Timing: constant Associated Symptoms: No LOC, No headache, No urinary symptoms, No numbness ( no tingling) Note: Associated Symptoms: General memory loss, confusion, unawareness to time and place. Denies: Pain, complication with bowel movements, lightheadedness, wooziness. Review of Systems See HPI for pertinent positives & negatives. A total of 10 systems reviewed and were otherwise negative. Past Medical & Surgical Medical Problems: (1) Acute memory impairment (2) HTN (hypertension) (3) Left facial numbness (4) Sinusitis (5) Weakness of right foot Surgical Problems: (1) H/O hernia repair Family History Diabetes mellitus Hypertension Social History Smoking Status: Current Some Day Smoker Alcohol Use: occasionally Drug Use: none Marital Status: single, in relationship Housing Status: lives with family Occupation Status: employed Current/Historical Medications Scheduled Amlodipine (Norvasc), 10 MG PO DAILY Aspirin (Aspirin Low Dose), 81 MG PO QAM Atorvastatin (Lipitor), 20 MG PO DAILY Cholecalciferol (Vitamin D3), 2,000 INTER.UNIT PO DAILY Multivitamin (Multivitamin), 1 TAB PO DAILY Scheduled PRN Meclizine Hcl (Meclizine Hcl), 25 MG PO QID PRN for Dizziness or Vertigo Pantoprazole Sodium (Protonix), 20 MG PO DAILY PRN for EATS SPICY FOODS Allergies Coded Allergies: Iodinated Diagnostic Agents (Verified Allergy, Intermediate, ITCHY, ) Physical Exam Vital Signs Date Time Temp Pulse Resp B/P (MAP) Pulse Ox O2 Delivery O2 Flow Rate FiO2 04/23/17 20:16 138/98 04/23/17 20:06 70 17 96 04/23/17 20:01 159/107 04/23/17 19:51 73 22 95 04/23/17 19:46 149/101 04/23/17 19:36 73 21 96 04/23/17 19:31 144/96 04/23/17 19:21 76 18 96 04/23/17 19:16 154/99 04/23/17 19:01 156/97 04/23/17 19:00 80 17 96 Room Air 04/23/17 18:46 143/96 04/23/17 18:45 77 22 95 04/23/17 18:30 77 17 96 04/23/17 18:27 81 16 145/100 96 Room Air 04/23/17 18:15 77 04/23/17 18:12 84 18 154/109 96 Room Air 04/23/17 18:11 96 Room Air 04/23/17 17:59 37.0 83 20 166/102 97 Room Air Physical Exam GENERAL: alert, well appearing, well nourished, no distress, non-toxic. Confused and disoriented to date, time, place, and events. EYE EXAM: normal conjunctiva, PERRL and EOM's grossly intact OROPHARYNX: no exudate, no erythema, lips, buccal mucosa, and tongue normal and mucous membranes are moist NECK: supple, no nuchal rigidity, no adenopathy, non-tender LUNGS: Clear to auscultation. Normal chest wall mechanics HEART: no murmurs, S1 normal and S2 normal ABDOMEN: abdomen soft, non-tender, normo-active bowel sounds, no masses, no rebound or guarding. BACK: Back is symmetrical on inspection and there is no deformity, no midline tenderness, no CVA tenderness. SKIN: no rashes and no bruising UPPER EXTREMITIES: upper extremities are grossly normal. LOWER EXTREMITIES: No pitting edema. NEURO EXAM: Normal sensorium, cranial nerves II-XII [grossly] intact, normal speech, no [gross] weakness of arms, no [gross] weakness of legs. [No drift. Finger to nose intact. Gross sensation intact.]. NIHSS of 2. Medical Decision & Procedures ER Provider Diagnostic Interpretation: Radiology results have been interpreted by the radiologist and reviewed by me. CT HEAD WITHOUT CONTRAST (CT) CLINICAL HISTORY: Stroke like symptoms COMPARISON STUDY: 04/11/2017 TECHNIQUE: Axial CT of the brain is performed from the vertex to the skull base. IV contrast was not administered for this examination. A dose lowering technique was utilized adhering to the principles of ALARA. CT DOSE: 614.27 mGy.cm FINDINGS: No intra or extra-axial mass lesions are visualized. There is no CT evidence of acute cortical infarction. There is no evidence of midline shift. There is no acute hemorrhage. No calvarial fractures are visualized. There is no evidence of pathologic ventricular dilatation. There is mild sphenoid and ethmoid mucosal thickening. Postsurgical changes are present within the maxillary and ethmoid sinuses. IMPRESSION: No change from the preceding study. No acute intracranial findings. Electronically signed by: Gomez Brown M.D. 04/23/2017 6:26 PM Dictated Date/Time: 04/23/2017 6:24 PM Laboratory Results 04/23/17 18:31 Red Blood Count 4.86, Mean Corpuscular Volume 86.2, Mean Corpuscular Hemoglobin 30.5, Mean Corpuscular Hemoglobin Concent 35.3, Mean Platelet Volume 9.2, Neutrophils (%) (Auto) 53.9, Lymphocytes (%) (Auto) 29.8, Monocytes (%) (Auto) 9.1, Eosinophils (%) (Auto) 5.8, Basophils (%) (Auto) 0.6, Neutrophils # (Auto) 2.79, Lymphocytes # (Auto) 1.54, Monocytes # (Auto) 0.47, Eosinophils # (Auto) 0.30, Basophils # (Auto) 0.03 04/23/17 18:31 Test 04/23/17 18:31 04/23/17 20:03 White Blood Count 5.17 K/uL (4.8-10.8) Red Blood Count 4.86 M/uL (4.7-6.1) Hemoglobin 14.8 g/dL (14.0-18.0) Hematocrit 41.9 % (42-52) Mean Corpuscular Volume 86.2 fL (80-100) Mean Corpuscular Hemoglobin 30.5 pg (25-34) Mean Corpuscular Hemoglobin Concent 35.3 g/dl (32-36) Platelet Count 197 K/uL (130-400) Mean Platelet Volume 9.2 fL (7.4-10.4) Neutrophils (%) (Auto) 53.9 % Lymphocytes (%) (Auto) 29.8 % Monocytes (%) (Auto) 9.1 % Eosinophils (%) (Auto) 5.8 % Basophils (%) (Auto) 0.6 % Neutrophils # (Auto) 2.79 K/uL (1.4-6.5) Lymphocytes # (Auto) 1.54 K/uL (1.2-3.4) Monocytes # (Auto) 0.47 K/uL (0.11-0.59) Eosinophils # (Auto) 0.30 K/uL (0-0.5) Basophils # (Auto) 0.03 K/uL (0-0.2) RDW Standard Deviation 41.6 fL (36.4-46.3) RDW Coefficient of Variation 13.2 % (11.5-14.5) Immature Granulocyte % (Auto) 0.8 % Immature Granulocyte # (Auto) 0.04 K/uL (0.00-0.02) Erythrocyte Sedimentation Rate 14 mm/hr (0-14) Prothrombin Time 9.7 SECONDS (9.0-12.0) Prothromb Time International Ratio 0.9 (0.9-1.1) Activated Partial Thromboplast Time 24.3 SECONDS (21.0-31.0) Partial Thromboplastin Ratio 0.9 Anion Gap 9.0 mmol/L (3-11) Est Creatinine Clear Calc Drug Dose 113.9 ml/min Estimated GFR () 104.3 Estimated GFR (Non- 90.0 BUN/Creatinine Ratio 14.4 (10-20) Calcium Level 8.6 mg/dl (8.5-10.1) Magnesium Level 1.9 mg/dl (1.8-2.4) Total Creatine Kinase 99 U/L (39-308) Creatine Kinase MB 0.6 ng/ml (0.5-3.6) Creatine Kinase MB Ratio 0.6 (0-3.0) Troponin I < 0.015 ng/ml (0-0.045) Thyroid Stimulating Hormone (TSH) 0.897 uIu/ml (0.300-4.500) Chemistry Specimen Hemolysis Urine Color YELLOW Urine Appearance CLEAR (CLEAR) Urine pH 7.5 (4.5-7.5) Urine Specific Webster 1.012 (1.000-1.030) Urine Protein NEG (NEG) Urine Glucose (UA) NEG (NEG) Urine Ketones NEG (NEG) Urine Occult Blood NEG (NEG) Urine Nitrite NEG (NEG) Urine Bilirubin NEG (NEG) Urine Urobilinogen NEG (NEG) Urine Leukocyte Esterase NEG (NEG) Urine Opiates Screen NEG (NEG) Urine Methadone, Qualitative NEG (NEG) Urine Barbiturates NEG (NEG) Urine Phencyclidine (PCP) Level NEG (NEG) Ur Amphetamine/Methamphetamine NEG (NEG) MDMA (Ecstasy) Screen NEG (NEG) Urine Benzodiazepines Screen NEG (NEG) Urine Cocaine Metabolite NEG (NEG) Urine Marijuana (THC) NEG (NEG) Lyme Disease IgG Antibody NEG (NEG) Lyme Disease IgM Antibody NEG (NEG) Laboratory results per my review. Medications Administered Medications (Trade) Dose Ordered Sig/Je Route Start Time Stop Time Status Last Admin Dose Admin Sodium Chloride 1,000 ml @ 50 mls/hr Q20H IV 04/23/17 18:18 04/23/17 22:39 DC 04/23/17 18:47 50 MLS/HR ECG Per My Interpretation Indication: altered mental status Rate (beats per minute): 75 Rhythm: normal sinus Findings: Q waves (in lead 3 ), no acute ischemic change, other (Normal axis, normal intervals ) ED Course 180: The patient was evaluated in room A1. A complete history and physical exam was performed. 1818: Ordered Sodium Chloride 1000 ml @ 50 mls/hr IV. 1825: I reevaluated the patient. On repeat exam, the patient's mental status remains unchanged. The patient continues to be confused. 1839: I discussed the patient's case with Dr. Luisa Zhao [facility]. He states that he will evaluate the patient. Based on present evidence, Dr. Moran does not feel that the patient is experiencing a stroke. He does not recommend TPA treatment at this time. 1840: I updated the patient's family regarding the patients status and current treatment plan. 191: I discussed the patient's case with Dr. Luisa Zhao [facility]. He does not feel the patient should receive TPA treatment. He advises that I admit the patient given risk factors. He advises a full stroke workup 192: I discussed the patient's case with Dr. Christianson - [facility]. He will evaluate the patient for further treatment and care. Medical Decision Differential diagnosis: Etiologies such as metabolic, infection, hypoglycemia, electrolyte abnormalities , cardiac sources, intracerebral event, toxicologic, neurologic, transient global amnesia, psychosomatic manifestation, stress reaction, as well as others were entertained. Patient with atypical presentation here, no focal neuro deficits other than acute disorientation and memory impairment. Patient already on risk reduction medications including aspirin 81 mg, statin, and blood pressure medication. Patient not recently ill. She recently admitted for dizziness/syncope and had negative evaluation and symptoms thought to be due to BPPV. Girlfriend and mother state patient has been compliant with meds, had no complaints earlier today, but had a very abrupt onset of confusion this afternoon. Given timeframe of events, code stroke called as a precaution and patient seen by tele -neurology from [facility]. Patient not deemed a TPA candidate due to lack of additional symptoms and low NIH stroke score and concerned that other pathology could be causing symptoms other than a stroke. This is all discussed with patient and family at bedside by myself as well as the tele-neurologist. Patient stable throughout, blood pressure mildly elevated but improved and did not require additional medication. Patient had no other change in symptoms or evolving complaints or physical exam findings. Patient had no improvement in memory or orientation while monitored in the emergency room. Case discussed with hospitalist for additional evaluation and treatment. Medication Reconcilliation Current Medication List: was personally reviewed by me Blood Pressure Screening Patient's blood pressure: Elevated blood pressure Blood pressure disposition: Referred to PCP Consults Time Called: 1829 Consulting Physician: Dr. Luisa Zhao [facility] Returned Call: 1838 I discussed the patient's case with Dr. Luisa Zhao [facility]. He states that he will evaluate the patient. Based on present evidence, Dr. Moran does not feel that the patient is experiencing a stroke. He does not recommend TPA treatment at this time. Additional Consults: Time Called: 1917 Consulted Physician: Dr. Meghan Zhao [facility] Returned Call: 1921 Additional Comments: I discussed the patient's case with Dr. Meghan Zhao [facility]. He will evaluate the patient for further treatment and care. Impression Primary Impression: Altered mental status Additional Impression: Acute memory impairment Critical Care I have personally spent greater than 35 minutes of critical care time in the direct management of this patient. This includes bedside care, interpretation of diagnostic studies, and testing, discussion with consultants, patient, and family members, and other required patient management activities. This 35 minutes is in excess of all separately billable procedures. Scribe Attestation The scribe's documentation has been prepared under my direction and personally reviewed by me in its entirety. I confirm that the note above accurately reflects all work, treatment, procedures, and medical decision making performed by me. Departure Information Dispostion Being Evaluated By Hospitalist Referrals No Doctor, Assigned (PCP) Patient Instructions My [facility] Stroke History Time Last Known Well 1600 Stroke t-PA Criteria Reviewed Does NOT meet criteria for t-PA Reason t-PA Not Given Treatment not indicated Problem Qualifiers Primary Impression: Altered mental status Altered mental status type: disorientation Qualified Codes: R41.0 - Disorientation, unspecified
[2017-04-23 19:13] LABS: INR 0.9 (0.9-1.1); PTT PATIENT 24.3 SECONDS (21.0-31.0)
[2017-04-23 19:18] LABS: BLOOD UREA NITROGEN 14 mg/dl (7-18); CREATININE 0.97 mg/dl (0.60-1.40); GLUCOSE 95 mg/dl (70-99); POTASSIUM 3.6 mmol/L (3.5-5.1); SODIUM 140 mmol/L (136-145)
[2017-04-23 19:19] LABS: CALCIUM 8.6 mg/dl (8.5-10.1); CARBON DIOXIDE 25 mmol/L (21-32); CKMB 0.6 ng/ml (0.5-3.6)
[2017-04-23] MEDS ORDERED: ACETAMINOPHEN 325 MG TAB PO PRN (20:15)
[2017-04-23] MEDS ORDERED: MAGNESIUM HYDROXIDE SUSP 30 ML UDC PO PRN (20:15)
[2017-04-23] MEDS ORDERED: NITROGLYCERIN 0.4 MG SL PER TAB CHARGE SL PRN (20:15)
[2017-04-23] MEDS ORDERED: ALUMINUM/MAGNESIUM/SIMETH (MAALOX MAX) 30 ML UDC PO PRN (20:15)
[2017-04-23] MEDS ORDERED: ONDANSETRON 8MG OD TAB PO PRN (20:45)
[2017-04-23 21:03] VITALS: O2SAT 96; Ht 182.9 cm; Wt 102.4 kg
--- NOTE | 2017-04-23 21:03 | History and Physical ---
History & Physical Date & Time of Service: Apr 23, 2017 at 20:45 Chief Complaint: Not Making Sense, Talking Past Primary Care Physician: RV. Blanton MD History of Present Illness Source: patient, family, partner, hospital records The patient is a 51-year-old male was recently admitted [facility] from April 11 - April 12 for a syncopal episode. His significant other reports that they were out at [facility] today, he was walking around the function normally, however after leaving a store, he started to have significant memory loss issues and an inability to recognize common objects like a cell phone correctly. In the emergency department, he continues to have the same symptoms , and understandably has become mildly irritable. Symptoms that prompted his first admission were primarily that of syncope. With his symptoms today, he did not have a syncopal episode, and the significant memory impact is new compared to previous episode. Family History Diabetes mellitus Hypertension Social History Smoking Status: Current Some Day Smoker Smokeless Tobacco Use: No Alcohol Use: none Drug Use: none Marital Status: single, in relationship Housing status: lives with significant other Occupational Status: employed Immunizations History of Influenza Vaccine: Unknown History of Tetanus Vaccine?: Unknown History of Pneumococcal: Unknown History of Hepatitis B Vaccine: Unknown Allergies Coded Allergies: Iodinated Diagnostic Agents (Verified Allergy, Intermediate, ITCHY, ) Home Medications Scheduled Amlodipine (Norvasc), 10 MG PO DAILY Aspirin (Aspirin Low Dose), 81 MG PO QAM Atorvastatin (Lipitor), 20 MG PO DAILY Cholecalciferol (Vitamin D3), 2,000 INTER.UNIT PO DAILY Multivitamin (Multivitamin), 1 TAB PO DAILY Scheduled PRN Meclizine Hcl (Meclizine Hcl), 25 MG PO QID PRN for Dizziness or Vertigo Pantoprazole Sodium (Protonix), 20 MG PO DAILY PRN for EATS SPICY FOODS Review of Systems The patient denies chest pain, palpitations, shortness of breath, dyspnea on exertion, cough, lower extremity swelling, sore throat, fevers, chills, sweats, weight change, fatigue, nausea, vomiting, diarrhea , constipation, abdominal pain, pelvic pain, blood in urine or stool, dysuria, urinary frequency or urgency, loss of consciousness, rash, abnormal bruising or bleeding, imbalance, focal or generalized weakness, numbness or tingling in arms or legs, generalized arthralgias or myalgias, back or neck pain, or night sweats. The review of systems is otherwise negative other than for that already noted above, and at least 10 systems have been reviewed. Physical Exam Vital Signs Date Time Temp Pulse Resp B/P (MAP) Pulse Ox O2 Delivery O2 Flow Rate FiO2 04/23/17 20:31 146/99 04/23/17 20:21 73 19 96 Room Air 04/23/17 20:16 138/98 04/23/17 20:06 70 17 96 04/23/17 20:01 159/107 04/23/17 19:51 73 22 95 04/23/17 19:46 149/101 04/23/17 19:36 73 21 96 04/23/17 19:31 144/96 04/23/17 19:21 76 18 96 04/23/17 19:16 154/99 04/23/17 19:01 156/97 04/23/17 19:00 80 17 96 Room Air 04/23/17 18:46 143/96 04/23/17 18:45 77 22 95 04/23/17 18:30 77 17 96 04/23/17 18:27 81 16 145/100 96 Room Air 04/23/17 18:15 77 04/23/17 18:12 84 18 154/109 96 Room Air 04/23/17 18:11 96 Room Air 04/23/17 17:59 37.0 83 20 166/102 97 Room Air The patient is awake, somewhat disoriented and irritable, responding with short quick answers to questions, well developed and well nourished, normocephalic and atraumatic, lying in bed and in no acute distress. HEENT--PERRL, EOMI, mucous membranes and oropharynx dry. Neck--supple. No JVD. No bruits. Thyroid normal, trachea midline, no adenopathy. Heart--normal S1 and S2. No murmurs, rubs or gallops. Lungs--clear bilaterally, no respiratory distress, no accessory muscle use. Abdomen--normal bowel sounds and soft. Nontender. Nondistended, no hernias or masses, no organomegaly. Extremities--no cyanosis or clubbing. No edema. There are good distal pulses b/ l. Dermatologic--normal skin turgor, normal color, no abnormal lymph nodes, no rash. Neurologic--cranial nerves II through XII grossly intact. Short-term memory loss. Rheumatologic--normal range of motion. Psychiatric--normal affect. Diagnostics Laboratory Results Results Past 24 Hours Test 04/23/17 03:31 04/23/17 18:31 04/23/17 20:03 04/23/17 20:34 Range/Units White Blood Count 5.17 4.8-10.8 K/uL Red Blood Count 4.86 4.7-6.1 M/uL Hemoglobin 14.8 14.0-18.0 g/dL Hematocrit 41.9 42-52 % Mean Corpuscular Volume 86.2 80-100 fL Mean Corpuscular Hemoglobin 30.5 25-34 pg Mean Corpuscular Hemoglobin Concent 35.3 32-36 g/dl Platelet Count 197 130-400 K/uL Mean Platelet Volume 9.2 7.4-10.4 fL Neutrophils (%) (Auto) 53.9 % Lymphocytes (%) (Auto) 29.8 % Monocytes (%) (Auto) 9.1 % Eosinophils (%) (Auto) 5.8 % Basophils (%) (Auto) 0.6 % Neutrophils # (Auto) 2.79 1.4-6.5 K/uL Lymphocytes # (Auto) 1.54 1.2-3.4 K/uL Monocytes # (Auto) 0.47 0.11-0.59 K/uL Eosinophils # (Auto) 0.30 0-0.5 K/uL Basophils # (Auto) 0.03 0-0.2 K/uL RDW Standard Deviation 41.6 36.4-46.3 fL RDW Coefficient of Variation 13.2 11.5-14.5 % Immature Granulocyte % (Auto) 0.8 % Immature Granulocyte # (Auto) 0.04 0.00-0.02 K/uL Prothrombin Time 9.7 9.0-12.0 SECONDS Prothromb Time International Ratio 0.9 0.9-1.1 Activated Partial Thromboplast Time 24.3 21.0-31.0 SECONDS Partial Thromboplastin Ratio 0.9 Sodium Level 140 136-145 mmol/L Potassium Level 3.6 3.5-5.1 mmol/L Chloride Level 106 98-107 mmol/L Carbon Dioxide Level 25 21-32 mmol/L Anion Gap 9.0 3-11 mmol/L Blood Urea Nitrogen 14 7-18 mg/dl Creatinine 0.97 0.60-1.40 mg/dl Est Creatinine Clear Calc Drug Dose 113.9 ml/min Estimated GFR () 104.3 Estimated GFR (Non- 90.0 BUN/Creatinine Ratio 14.4 10-20 Random Glucose 95 70-99 mg/dl Calcium Level 8.6 8.5-10.1 mg/dl Magnesium Level 1.9 1.8-2.4 mg/dl Total Creatine Kinase 99 39-308 U/L Creatine Kinase MB 0.6 0.5-3.6 ng/ml Creatine Kinase MB Ratio 0.6 0-3.0 Troponin I < 0.015 0-0.045 ng/ml Thyroid Stimulating Hormone (TSH) 0.897 0.300-4.500 uIu/ml Chemistry Specimen Hemolysis Urine Color YELLOW Urine Appearance CLEAR CLEAR Urine pH 7.5 4.5-7.5 Urine Specific [place] 1.012 1.000-1.030 Urine Protein NEG NEG Urine Glucose (UA) NEG NEG Urine Ketones NEG NEG Urine Occult Blood NEG NEG Urine Nitrite NEG NEG Urine Bilirubin NEG NEG Urine Urobilinogen NEG NEG Urine Leukocyte Esterase NEG NEG Urine Opiates Screen NEG NEG Urine Methadone, Qualitative NEG NEG Urine Barbiturates NEG NEG Urine Phencyclidine (PCP) Level NEG NEG Ur Amphetamine/Methamphetamine NEG NEG MDMA (Ecstasy) Screen NEG NEG Urine Benzodiazepines Screen NEG NEG Urine Cocaine Metabolite NEG NEG Urine Marijuana (THC) NEG NEG Test 04/23/17 20:35 04/23/17 20:39 Range/Units Diagnostic Radiology Patient Name: JENNIFER YUNG Unit Number: [id number] Dictated: 04/23/171823 Transcribed: 04/23/171823 ARG Printed Date/Time: [~ rep prt dt]/[~ rep prt tm] [~ rep ct labl] - [~ rep ct ivnm] [facility] [place] [address] Dictated: 04/23/171823 Transcribed: 04/23/171823 ARG Printed Date/Time: [~ rep prt dt]/[~ rep prt tm] [~ rep ct labl] - [~ rep ct ivnm] [~ rep ct add3]] CT HEAD WITHOUT CONTRAST (CT) CLINICAL HISTORY: Stroke like symptoms COMPARISON STUDY: 04/11/2017 TECHNIQUE: Axial CT of the brain is performed from the vertex to the skull base. IV contrast was not administered for this examination. A dose lowering technique was utilized adhering to the principles of ALARA. CT DOSE: 614.27 mGy.cm FINDINGS: No intra or extra-axial mass lesions are visualized. There is no CT evidence of acute cortical infarction. There is no evidence of midline shift. There is no acute hemorrhage. No calvarial fractures are visualized. There is no evidence of pathologic ventricular dilatation. There is mild sphenoid and ethmoid mucosal thickening. Postsurgical changes are present within the maxillary and ethmoid sinuses. IMPRESSION: No change from the preceding study. No acute intracranial findings. Electronically signed by: Gomez Brown M.D. 04/23/2017 6:26 PM Dictated Date/Time: 04/23/2017 6:24 PM The status of this report is Signed. Draft = Not yet reviewed or approved by Radiologist. Signed = Reviewed and approved by Radiologist. <AttendingPhy></AttendingPhy> <FamilyPhy>RV. Blanton MD</ FamilyPhy> <PrimaryPhy>RV. Blanton MD</PrimaryPhy> <UnitNumber> [id number]</UnitNumber> <VisitNumber>[id number]</VisitNumber> <PatientName> JENNIFER YUNG</PatientName> <DateOfBirth>1965</DateOfBirth> < Location>[facility]</Location> <ServiceDate>04/23/17</ServiceDate> <MNE>ESINDI</MNE> <OrderingPhy>PheMichelle guzman DO</OrderingPhy> <OrderingPhyMNE>f rep ord dr tejada </OrderingPhyMNE> <DictatingPhyMNE>f rep dict dr tejada</DictatingPhyMNE> < CCListMNE>f rep ct mne</CCListMNE> <AdmittingPhyMNE>f pt admit dr tejada</ AdmittingPhyMNE> <AttendingPhyMNE>f pt attend dr tejada</AttendingPhyMNE> <ConsultingPhyMNE>f pt consult dr tejada</ConsultingPhyMNE> <FamilyPhyMNE>f pt fam dr tejada</FamilyPhyMNE> <OtherPhyMNE>f pt other dr etjada</OtherPhyMNE> < PrimaryPhyMNE>f pt prim care dr tejada</PrimaryPhyMNE> <ReferringPhyMNE>f pt referring dr tejada</ReferringPhyMNE> EKG EKG shows normal sinus rhythm 75 bpm, there are no acute ST-T changes. Impression Assessment and Plan Acute memory loss/confusion/irritability-- The patient will be admitted to telemetry for serial cardiac enzymes, serial EKG's, and cardiac rhythm monitoring. CT of the head negative for acute event. Agree with [facility] [place] to repeat MRI brain. Repeat EEG in the AM. In some respects looks post-ictal. Will not repeat the other imaging tests done at last admission. Order ESR, EMILEE ,ANCA, Arterial Hypercoagulable Studies, Lyme, Ehrlichiosis, Heavy Metal screen, Parvo, EBV, CMV. Neurochecks per protocol. Consult Neurology. Continue ASA 81mg daily. Will let neuro decide about change to clopidogrel. HTN--continue amlodipine 10 mg daily with hold parameters. Hyperlipidemia--continue atorvastatin 20mg daily. GERD--continue pantoprazole. Advanced Directives Existing Advance Directive: No Existing Living Will: No Existing Power of Count Room Clerk: No Resuscitation Status VTE Prophylaxis Will order VTE Prophylaxis: Yes Social Service Consult None Apply
[2017-04-23 21:05] VITALS: O2SAT 96
[2017-04-23] MEDS ORDERED: GADAVIST IV PRN (22:00)
--- NOTE | 2017-04-23 22:20 | DIAGNOSTIC IMAGING REPORT ---
MRI OF THE BRAIN WITHOUT AND WITH IV CONTRAST CLINICAL HISTORY: Acute change in mental status. New onset amnesia. COMPARISON STUDY: CT scan dated 04/23/2017, MRI the brain dated 04/11/2017 TECHNIQUE: MRI of the brain was performed from the vertex to the skull base utilizing various T1 and T2 weighted sequences. Following the IV administration of 10.5 mL of Gadavist contrast, additional enhanced images were obtained. FINDINGS: Sagittal T1, axial diffusion, proton density and T2 weighted axial, coronal FLAIR, and pre and post axial T1-weighted images were acquired. These were supplemented with post gadolinium coronal T1 weighted images. No intra or extra-axial mass lesions are visualized. Axial diffusion-weighted images reveal no evidence of acute or subacute infarction. There is no evidence of ventricular dilatation. Proton density T2-weighted and FLAIR images reveal no significant intraparenchymal signal abnormalities. There are no abnormal flow voids. There is no evidence of pathologic enhancement. There is minor mucosal thickening within the maxillary sinuses IMPRESSION: No change in the preceding study. Normal MRI of the brain for age Electronically signed by: Gomez Brown M.D. 04/23/2017 10:18 PM Dictated Date/Time: 04/23/2017 10:15 PM
[2017-04-23] MEDS: NSS + 20MEQ KCL 1000ML 1,000 ML IV SCH (23:11)
[2017-04-24 04:35] VITALS: BP 139/91; PULSE 77; TEMP 36.4; O2SAT 96
[2017-04-24 04:51] LABS: BASO % 0.4 %; BASO ABS # 0.02 K/uL (0-0.2); EOS % 5.9 %; EOS ABS # 0.31 K/uL (0-0.5); HEMATOCRIT 40.1 % (42-52); HEMOGLOBIN 13.9 g/dL (14.0-18.0); IG# 0.03 K/uL (0.00-0.02); LYMPH % 34.8 %; LYMPH ABS # 1.84 K/uL (1.2-3.4); MEAN CELL VOLUME 87.2 fL (80-100); MEAN CORPUSCULAR HEMOGLOBIN 30.2 pg (25-34); MEAN CORPUSCULAR HGB CONC 34.7 g/dl (32-36); MEAN PLATELET VOLUME 9.4 fL (7.4-10.4); MONO % 8.9 %; MONO ABS # 0.47 K/uL (0.11-0.59); NEUT % 49.4 %; NEUT ABS # 2.62 K/uL (1.4-6.5); PLATELET COUNT 197 K/uL (130-400); RED CELL DISTRIBUTION WIDTH CV 13.2 % (11.5-14.5); RED CELL DISTRIBUTION WIDTH SD 41.9 fL (36.4-46.3); WHITE BLOOD COUNT 5.29 K/uL (4.8-10.8)
[2017-04-24 04:59] LABS: PTT PATIENT 24.7 SECONDS (21.0-31.0)
[2017-04-24 05:07] LABS: BLOOD UREA NITROGEN 14 mg/dl (7-18); CALCIUM 8.3 mg/dl (8.5-10.1); CARBON DIOXIDE 26 mmol/L (21-32); CREATININE 0.88 mg/dl (0.60-1.40); GLUCOSE 107 mg/dl (70-99); POTASSIUM 3.6 mmol/L (3.5-5.1); SODIUM 140 mmol/L (136-145)
[2017-04-24 05:13] LABS: CKMB 0.6 ng/ml (0.5-3.6)
[2017-04-24 07:16] VITALS: BP 137/92; PULSE 68; TEMP 36.8; O2SAT 97
[2017-04-24] MEDS: ASPIRIN 81 MG ECTAB PO SCH (09:13)
[2017-04-24] MEDS: AMLODIPINE BESYLATE 5 MG TAB PO SCH (09:13)
[2017-04-24] MEDS: ATORVASTATIN 20 MG TAB PO SCH (09:14)
[2017-04-24] MEDS: PANTOprazole SOD 40 MG TAB PO SCH (09:14)
[2017-04-24] MEDS: CHOLECALCIFEROL 1000 INTER.UNIT TAB PO SCH (09:14)
[2017-04-24] MEDS: MULTIVITAMIN TAB PO SCH (09:14)
--- NOTE | 2017-04-24 09:29 | EEG Procedure Note ---
EEG Procedure Note Date of Service Apr 24, 2017. Start / End Times Start Time: 8:50 AM End Time: 9:10 AM Referring Physician Isael Christianson History This is a 51-year-old male who presents with acute memory loss. EEG for further evaluation of possible seizure etiology. Home Medication List Scheduled Amlodipine (Norvasc), 10 MG PO DAILY Aspirin (Aspirin Low Dose), 81 MG PO QAM Atorvastatin (Lipitor), 20 MG PO DAILY Cholecalciferol (Vitamin D3), 2,000 INTER.UNIT PO DAILY Multivitamin (Multivitamin), 1 TAB PO DAILY Scheduled PRN Meclizine Hcl (Meclizine Hcl), 25 MG PO QID PRN for Dizziness or Vertigo Pantoprazole Sodium (Protonix), 20 MG PO DAILY PRN for EATS SPICY FOODS Inpatient Medication List Current Inpatient Medications Medications (Trade) Dose Ordered Sig/Je Route Start Time Stop Time Status Last Admin Dose Admin Potassium Chloride/Sodium Chloride 1,000 ml @ 75 mls/hr [id number] IV 04/23/17 23:00 05/23/17 20:04 04/23/17 23:11 75 MLS/HR Acetaminophen (Tylenol Tab) 650 mg Q4H PRN PO 04/23/17 20:15 05/23/17 20:14 Al Hydrox/Mg Hydrox/Simethicone (Maalox Max Susp) 15 ml Q4H PRN PO 04/23/17 20:15 05/23/17 20:14 Magnesium Hydroxide (Milk Of Magnesia Susp) 30 ml Q12H PRN PO 04/23/17 20:15 05/23/17 20:14 Nitroglycerin (Nitrostat Tab) 0.4 mg UD PRN SL 04/23/17 20:15 05/23/17 20:14 Aspirin (Ecotrin Tab) 81 mg QAM PO 04/24/17 09:00 05/24/17 08:59 04/24/17 09:13 81 MG Amlodipine Besylate (Norvasc Tab) 10 mg DAILY PO 04/24/17 09:00 05/24/17 08:59 04/24/17 09:13 10 MG Atorvastatin Calcium (Lipitor Tab) 20 mg DAILY PO 04/24/17 09:00 05/24/17 08:59 04/24/17 09:14 20 MG Cholecalciferol (Vitamin D Tab) 2,000 inter.unit DAILY PO 04/24/17 09:00 05/24/17 08:59 04/24/17 09:14 2,000 INTER.UNIT Multivitamins (Multivitamin Tab) 1 tab DAILY PO 04/24/17 09:00 05/24/17 08:59 04/24/17 09:14 1 TAB Pantoprazole Sodium (Protonix Tab) 40 mg QAM PO 04/24/17 09:00 05/24/17 08:59 04/24/17 09:14 40 MG Ondansetron HCl (Zofran Odt) 8 mg Q6H PRN PO 04/23/17 20:45 05/23/17 20:44 Gadobutrol (Gadavist) 10.5 mmol UD PRN IV 04/23/17 22:00 04/27/17 21:59 Description This is a 21 electrode EEG with a single channel dedicated to limited EKG. The electrodes were placed in accordance with the International 10-20 system. At the start of the recording the patient was in an awake/drowsy state. Background was well organized and composed of symmetric mixed alpha and beta frequencies. There was a symmetric well-formed moderate amplitude 9-10 Hz posterior dominant rhythm that was reactive to eye opening and closure. Hyperventilation was not done. Intermittent photic stimulation at various frequencies produced no abnormalities. Sleep was indicated by symmetric sleep spindles and vertex waves. Interpretation This is a normal awake and asleep routine EEG. There was no electrographic seizures or epileptiform discharges. Clinical Correlation A normal EEG does not rule out epilepsy if there is a strong clinical suspicion.
--- NOTE | 2017-04-24 09:54 | Neurology Consultation ---
Neurology Consultation Date of Consultation: Apr 24, 2017. Attending Physician: Malik Francis MD, PhD Primary Care Physician: RV. Blanton MD Reason for Consultation: Amnesia History of Present Illness Source: patient, hospital records The patient is a 51-year-old male with a chief complaint of memory loss. The patient indicates that he still does not have a very good recollection of what happened yesterday. No other family members were present at the time of my assessment. Admission records indicate that he experienced an amnestic episode yesterday afternoon, after eating lunch, while driving. He apparently did not recognize his house or personal vehicle. Upon further questioning of the patient, he seems to recall eating a meal at his aunt's house indicating that he had turkey, mashed potatoes, and stuffing. He also indicates that he did not recognize a picture of his girlfriend that was presented to him recently. He indicates that he still is confused and has very poor memory of yesterday's events and also believes that he is not back to normal. He presents with a very flat affect and is otherwise non distressed and comfortable appearing. He has a history of a brief admission to the hospital from April 11, 2017 through April 12, 2017 for syncope. An MRI of the brain and EEG at that time were unremarkable. He was also evaluated by Dr. Nolasco. This patient's history is also notable for concussion with associated loss of consciousness occurring in 2014 for which she experienced persistent post concussive symptoms. Repeat neuro imaging has been completed during this most recent hospitalization. A CT of the head is unremarkable. A brain MRI is unremarkable as well. I reviewed the images as well as the radiologist's interpretation of this test and agree. Electrocardiogram reveals a sinus rhythm, 75 beats per minute. A tele Stroke consultation was also obtained for this patient while he was in the emergency department although it was felt that his presentation was not really consistent with stroke. TPA was not administered. An electroencephalogram completed this morning was unremarkable. Past Medical/Surgical History Medical Problems: (1) Abdominal muscle strain Status: Acute (2) Abdominal pain Status: Acute (3) Abdominal pain Status: Acute (4) Altered mental status Status: Acute (5) Altered mental status Status: Acute (6) Cardiomegaly Status: Acute (7) Cervical radiculopathy Status: Acute (8) Chest pain Status: Acute (9) Cholecystitis Status: Acute (10) Colitis Status: Acute (11) Constipation Status: Acute (12) Dehydration Status: Acute (13) Dizziness Status: Acute (14) Fever Status: Acute (15) Incarcerated umbilical hernia Status: Acute (16) Infected insect bite of buttock Status: Acute (17) Left sided abdominal pain Status: Acute (18) Left sided abdominal pain Status: Acute (19) LUQ abdominal pain Status: Acute (20) Myalgia Status: Acute (21) Nausea, vomiting, and diarrhea Status: Acute (22) Right knee injury Status: Acute (23) Right leg weakness Status: Acute (24) Syncope Status: Acute (25) Umbilical hernia Status: Acute (26) Weakness Status: Acute Family History Family history notable for diabetes and hypertension Father: HTN, diabetes Social History Smoking Status: Current some day smoker Smokeless Tobacco Use: No Alcohol Use: none Drug Use: none Marital Status: single, in relationship Housing Status: lives with family Occupation Status: employed Allergies Coded Allergies: Iodinated Diagnostic Agents (Verified Allergy, Intermediate, ITCHY, ) Current Inpatient Medications Current Inpatient Medications Medications (Trade) Dose Ordered Sig/Je Route Start Time Stop Time Status Last Admin Dose Admin Potassium Chloride/Sodium Chloride 1,000 ml @ 75 mls/hr [id number] IV 04/23/17 23:00 05/23/17 20:04 04/23/17 23:11 75 MLS/HR Acetaminophen (Tylenol Tab) 650 mg Q4H PRN PO 04/23/17 20:15 05/23/17 20:14 Al Hydrox/Mg Hydrox/Simethicone (Maalox Max Susp) 15 ml Q4H PRN PO 04/23/17 20:15 05/23/17 20:14 Magnesium Hydroxide (Milk Of Magnesia Susp) 30 ml Q12H PRN PO 04/23/17 20:15 05/23/17 20:14 Nitroglycerin (Nitrostat Tab) 0.4 mg UD PRN SL 04/23/17 20:15 05/23/17 20:14 Aspirin (Ecotrin Tab) 81 mg QAM PO 04/24/17 09:00 05/24/17 08:59 Amlodipine Besylate (Norvasc Tab) 10 mg DAILY PO 04/24/17 09:00 05/24/17 08:59 Atorvastatin Calcium (Lipitor Tab) 20 mg DAILY PO 04/24/17 09:00 05/24/17 08:59 Cholecalciferol (Vitamin D Tab) 2,000 inter.unit DAILY PO 04/24/17 09:00 05/24/17 08:59 Multivitamins (Multivitamin Tab) 1 tab DAILY PO 04/24/17 09:00 05/24/17 08:59 Pantoprazole Sodium (Protonix Tab) 40 mg QAM PO 04/24/17 09:00 05/24/17 08:59 Ondansetron HCl (Zofran Odt) 8 mg Q6H PRN PO 04/23/17 20:45 05/23/17 20:44 Gadobutrol (Gadavist) 10.5 mmol UD PRN IV 04/23/17 22:00 04/27/17 21:59 Review of Systems Constitutional: No fever or chills Eyes: No vision loss or diplopia ENT: No vertigo, or hearing loss Cardiovascular: no chest pain or palpitations Respiratory: No coughing wheezing or shortness of breath Neurological: See history of present illness Psychiatric: No depression or anxiety A full 10 point review of systems was obtained from this patient with pertinent positives and negatives described in history of present illness and otherwise listed above. All remaining systems were reviewed and are negative. Physical Exam Vital Signs (Past 24 Hrs): Date Time Temp Pulse Resp B/P (MAP) Pulse Ox O2 Delivery O2 Flow Rate FiO2 04/24/17 08:00 Room Air 04/24/17 07:16 36.8 68 20 137/92 (107) 97 04/24/17 04:35 36.4 77 18 139/91 (107) 96 Room Air 04/24/17 04:00 Room Air 04/24/17 00:00 Room Air 04/23/17 21:05 70 19 153/108 96 04/23/17 21:03 96 Room Air 04/23/17 20:31 146/99 04/23/17 20:21 73 19 96 Room Air 04/23/17 20:16 138/98 04/23/17 20:06 70 17 96 04/23/17 20:01 159/107 04/23/17 19:51 73 22 95 04/23/17 19:46 149/101 04/23/17 19:36 73 21 96 04/23/17 19:31 144/96 04/23/17 19:21 76 18 96 04/23/17 19:16 154/99 04/23/17 19:01 156/97 04/23/17 19:00 80 17 96 Room Air 04/23/17 18:46 143/96 04/23/17 18:45 77 22 95 04/23/17 18:30 77 17 96 04/23/17 18:27 81 16 145/100 96 Room Air 04/23/17 18:15 77 04/23/17 18:12 84 18 154/109 96 Room Air 04/23/17 18:11 96 Room Air 04/23/17 17:59 37.0 83 20 166/102 97 Room Air The patient is a well-developed, well-nourished, male. He is lying quietly in bed. He is alert and oriented to person, hospital, and day of the week. He is not oriented to date, month, or year. Delayed recall is impaired, 1/3 objects. Remote memory intact with the exception of yesterday's events per history of present illness. Attention and concentration are impaired. Patient unable to spell world backwards. Patient is able to name objects and repeat phrases. He provides minimal spontaneous speech and exhibits a very flat affect. Vocabulary normal. Visual gran[place] full to confrontation. Pupils equal round react to light and accommodation. Eye movements intact. There is no nystagmus. Facial sensation intact. There is normal facial symmetry and strength. No facial droop. Hearing intact to finger rub bilaterally. Palate elevates to midline. Shoulder shrug intact bilaterally. Tongue protrudes to midline. Sensation intact to light touch, temperature, vibration, and proprioception for all 4 limbs. Deep tendon reflexes are intact and symmetrical. Plantar responses downgoing bilaterally. There is no dysdiadochokinesia or dysmetria with [id number] or heel to buckley bilaterally. Ophthalmoscopic examination reveals normal-appearing optic discs and posterior segments. No papilledema or hemorrhages. Carotid pulses normal bilaterally. No bruits to auscultation. Gait and station not tested due to safety concerns. Muscle strength and tone normal for all 4 limbs. There is no atrophy. No abnormal movements observed. Laboratory Results Past 24 Hours: 04/24/17 04:43 Red Blood Count 4.60, Mean Corpuscular Volume 87.2, Mean Corpuscular Hemoglobin 30.2, Mean Corpuscular Hemoglobin Concent 34.7, Mean Platelet Volume 9.4, Neutrophils (%) (Auto) 49.4, Lymphocytes (%) (Auto) 34.8, Monocytes (%) (Auto) 8.9, Eosinophils (%) (Auto) 5.9, Basophils (%) (Auto) 0.4, Neutrophils # (Auto) 2.62, Lymphocytes # (Auto) 1.84, Monocytes # (Auto) 0.47, Eosinophils # (Auto) 0.31, Basophils # (Auto) 0.02 04/24/17 04:43 Test 04/23/17 18:31 04/23/17 20:03 04/23/17 21:15 04/24/17 02:00 Erythrocyte Sedimentation Rate 14 mm/hr (0-14) Thyroid Stimulating Hormone (TSH) 0.897 uIu/ml (0.300-4.500) Chemistry Specimen Hemolysis Urine Color YELLOW Urine Appearance CLEAR (CLEAR) Urine pH 7.5 (4.5-7.5) Urine Specific [place] 1.012 (1.000-1.030) Urine Protein NEG (NEG) Urine Glucose (UA) NEG (NEG) Urine Ketones NEG (NEG) Urine Occult Blood NEG (NEG) Urine Nitrite NEG (NEG) Urine Bilirubin NEG (NEG) Urine Urobilinogen NEG (NEG) Urine Leukocyte Esterase NEG (NEG) Urine Opiates Screen NEG (NEG) Urine Methadone, Qualitative NEG (NEG) Urine Barbiturates NEG (NEG) Urine Phencyclidine (PCP) Level NEG (NEG) Ur Amphetamine/Methamphetamine NEG (NEG) MDMA (Ecstasy) Screen NEG (NEG) Urine Benzodiazepines Screen NEG (NEG) Urine Cocaine Metabolite NEG (NEG) Urine Marijuana (THC) NEG (NEG) Lyme Disease IgG Antibody NEG (NEG) Lyme Disease IgM Antibody NEG (NEG) Test 04/24/17 04:43 White Blood Count 5.29 K/uL (4.8-10.8) Red Blood Count 4.60 M/uL (4.7-6.1) Hemoglobin 13.9 g/dL (14.0-18.0) Hematocrit 40.1 % (42-52) Mean Corpuscular Volume 87.2 fL (80-100) Mean Corpuscular Hemoglobin 30.2 pg (25-34) Mean Corpuscular Hemoglobin Concent 34.7 g/dl (32-36) Platelet Count 197 K/uL (130-400) Mean Platelet Volume 9.4 fL (7.4-10.4) Neutrophils (%) (Auto) 49.4 % Lymphocytes (%) (Auto) 34.8 % Monocytes (%) (Auto) 8.9 % Eosinophils (%) (Auto) 5.9 % Basophils (%) (Auto) 0.4 % Neutrophils # (Auto) 2.62 K/uL (1.4-6.5) Lymphocytes # (Auto) 1.84 K/uL (1.2-3.4) Monocytes # (Auto) 0.47 K/uL (0.11-0.59) Eosinophils # (Auto) 0.31 K/uL (0-0.5) Basophils # (Auto) 0.02 K/uL (0-0.2) RDW Standard Deviation 41.9 fL (36.4-46.3) RDW Coefficient of Variation 13.2 % (11.5-14.5) Immature Granulocyte % (Auto) 0.6 % Immature Granulocyte # (Auto) 0.03 K/uL (0.00-0.02) Prothrombin Time 10.1 SECONDS (9.0-12.0) Prothromb Time International Ratio 1.0 (0.9-1.1) Activated Partial Thromboplast Time 24.7 SECONDS (21.0-31.0) Partial Thromboplastin Ratio 1.0 Anion Gap 7.0 mmol/L (3-11) Est Creatinine Clear Calc Drug Dose 125.6 ml/min Estimated GFR () 115.3 Estimated GFR (Non- 99.5 BUN/Creatinine Ratio 15.4 (10-20) Calcium Level 8.3 mg/dl (8.5-10.1) Magnesium Level 2.0 mg/dl (1.8-2.4) Total Creatine Kinase 81 U/L (39-308) Creatine Kinase MB 0.6 ng/ml (0.5-3.6) Creatine Kinase MB Ratio 0.7 (0-3.0) Troponin I < 0.015 ng/ml (0-0.045) Impression This is a 51-year-old male who presents with an amnestic episode beginning yesterday afternoon during which time the medical record suggests that he did not recognize his vehicle or house. According to the patient he did not recognize a photo of his girlfriend either. He indicates that he remembers eating lunch at an aunt's house prior to the episode although I am unable to corroborate the specifics described in the history of present illness. He currently displays impairment of orientation, attention, and short-term memory. He exhibits a very flat affect and is otherwise pleasant, cooperative, and non distressed. He does not have deficits of motor or sensory function on neurological examination. This patient's presentation seems most consistent with transient global amnesia. However, given his past medical history, persistent cognitive impairment and flat affect, either post concussive syndrome or an underlying mood or behavioral disturbance could also be considered. Complex partial seizures are probably unlikely given his 2 normal EEGs recently. There is no evidence of stroke or other significant abnormality on his recently completed brain MRI. Plan No additional neurological testing is needed at this time. This patient may follow up with Dr. Lala who has evaluated him previously. Continue to monitor for improvement in patient's orientation and memory. Consider outpatient neuropsychological testing. Please contact me if I may be of further assistance.
[2017-04-24 11:37] VITALS: BP 139/93; PULSE 64; TEMP 37; O2SAT 93
[2017-04-24] MEDS: NSS + 20MEQ KCL 1000ML 1,000 ML IV SCH (12:16)
--- NOTE | 2017-04-24 12:34 | Hospitalist Progress Note ---
Hospitalist Progress Note Date of Service Apr 24, 2017. Subjective Pt evaluation today including: conversation w/ patient, physical exam, lab review, review of studies, review of inpatient medication list Voiding: no voiding problems Patient resting in bed. Alert to person only. Thinks we are in the 90's. Unsure of what exactly happened yesterday, but states he was eating at his aunts. He then proceeded to drive home and couldn't remember how to get home. He did not know who his girlfriend was or that they lived together. He still thinks his girlfriend is a past girlfriend, but his mother keeps telling him otherwise. He thought he lived at home with his mom and dad- but his mother informed him he lives with his current girlfriend. He does not remember where he works. He was admitted 04/11-04/12 for dizziness and near-syncope- extensive workup was unremarkable. +blurred vision. Denies any injuries, new medications, drug use, alcohol use, new exposures. Patient denies any fever, chills, sweats, lightheadedness, dizziness, CP, palpitations, edema, SOB, wheezing, cough, abdominal pain, nausea, vomiting, diarrhea, urinary symptoms, melena, numbness/tingling, weakness, muscle/joint pain, anxiety/depression, active bleeding, or new skin discoloration/changes. Medications Current Inpatient Medications Medications (Trade) Dose Ordered Sig/Je Route Start Time Stop Time Status Last Admin Dose Admin Potassium Chloride/Sodium Chloride 1,000 ml @ 75 mls/hr [id number] IV 04/23/17 23:00 05/23/17 20:04 04/24/17 12:16 75 MLS/HR Acetaminophen (Tylenol Tab) 650 mg Q4H PRN PO 04/23/17 20:15 05/23/17 20:14 Al Hydrox/Mg Hydrox/Simethicone (Maalox Max Susp) 15 ml Q4H PRN PO 04/23/17 20:15 05/23/17 20:14 Magnesium Hydroxide (Milk Of Magnesia Susp) 30 ml Q12H PRN PO 04/23/17 20:15 05/23/17 20:14 Nitroglycerin (Nitrostat Tab) 0.4 mg UD PRN SL 04/23/17 20:15 05/23/17 20:14 Aspirin (Ecotrin Tab) 81 mg QAM PO 04/24/17 09:00 05/24/17 08:59 04/24/17 09:13 81 MG Amlodipine Besylate (Norvasc Tab) 10 mg DAILY PO 04/24/17 09:00 05/24/17 08:59 04/24/17 09:13 10 MG Atorvastatin Calcium (Lipitor Tab) 20 mg DAILY PO 04/24/17 09:00 05/24/17 08:59 04/24/17 09:14 20 MG Cholecalciferol (Vitamin D Tab) 2,000 inter.unit DAILY PO 04/24/17 09:00 05/24/17 08:59 04/24/17 09:14 2,000 INTER.UNIT Multivitamins (Multivitamin Tab) 1 tab DAILY PO 04/24/17 09:00 05/24/17 08:59 04/24/17 09:14 1 TAB Pantoprazole Sodium (Protonix Tab) 40 mg QAM PO 04/24/17 09:00 05/24/17 08:59 04/24/17 09:14 40 MG Ondansetron HCl (Zofran Odt) 8 mg Q6H PRN PO 04/23/17 20:45 05/23/17 20:44 Gadobutrol (Gadavist) 10.5 mmol UD PRN IV 04/23/17 22:00 04/27/17 21:59 Objective Vital Signs Date Time Temp Pulse Resp B/P (MAP) Pulse Ox O2 Delivery O2 Flow Rate FiO2 04/24/17 12:00 Room Air 04/24/17 11:37 37.0 64 18 139/93 (108) 93 04/24/17 08:00 Room Air 04/24/17 07:16 36.8 68 20 137/92 (107) 97 04/24/17 04:35 36.4 77 18 139/91 (107) 96 Room Air 04/24/17 04:00 Room Air 04/24/17 00:00 Room Air 04/23/17 21:05 70 19 153/108 96 04/23/17 21:03 96 Room Air 04/23/17 20:31 146/99 04/23/17 20:21 73 19 96 Room Air 04/23/17 20:16 138/98 04/23/17 20:06 70 17 96 04/23/17 20:01 159/107 04/23/17 19:51 73 22 95 04/23/17 19:46 149/101 04/23/17 19:36 73 21 96 04/23/17 19:31 144/96 04/23/17 19:21 76 18 96 04/23/17 19:16 154/99 04/23/17 19:01 156/97 04/23/17 19:00 80 17 96 Room Air 04/23/17 18:46 143/96 04/23/17 18:45 77 22 95 04/23/17 18:30 77 17 96 04/23/17 18:27 81 16 145/100 96 Room Air 04/23/17 18:15 77 04/23/17 18:12 84 18 154/109 96 Room Air 04/23/17 18:11 96 Room Air 04/23/17 17:59 37.0 83 20 166/102 97 Room Air Physical Exam General Appearance: no apparent distress, + obese Eyes: normal inspection, PERRL ENT: hearing grossly normal Neck: supple Respiratory/Chest: lungs clear, normal breath sounds, no respiratory distress, no accessory muscle use Cardiovascular: regular rate, rhythm Abdomen: normal bowel sounds, non tender, soft Extremities: no pedal edema, no calf tenderness Neurologic/Psychiatric: no motor/sensory deficits, alert, normal mood/affect, oriented x 3 Skin: normal color, warm/dry, no rash Laboratory Results Last 24 Hours Test 04/23/17 18:31 04/23/17 20:03 04/23/17 21:15 04/24/17 02:00 White Blood Count 5.17 K/uL Red Blood Count 4.86 M/uL Hemoglobin 14.8 g/dL Hematocrit 41.9 % Mean Corpuscular Volume 86.2 fL Mean Corpuscular Hemoglobin 30.5 pg Mean Corpuscular Hemoglobin Concent 35.3 g/dl Platelet Count 197 K/uL Mean Platelet Volume 9.2 fL Neutrophils (%) (Auto) 53.9 % Lymphocytes (%) (Auto) 29.8 % Monocytes (%) (Auto) 9.1 % Eosinophils (%) (Auto) 5.8 % Basophils (%) (Auto) 0.6 % Neutrophils # (Auto) 2.79 K/uL Lymphocytes # (Auto) 1.54 K/uL Monocytes # (Auto) 0.47 K/uL Eosinophils # (Auto) 0.30 K/uL Basophils # (Auto) 0.03 K/uL RDW Standard Deviation 41.6 fL RDW Coefficient of Variation 13.2 % Immature Granulocyte % (Auto) 0.8 % Immature Granulocyte # (Auto) 0.04 K/uL Erythrocyte Sedimentation Rate 14 mm/hr Prothrombin Time 9.7 SECONDS Prothromb Time International Ratio 0.9 Activated Partial Thromboplast Time 24.3 SECONDS Partial Thromboplastin Ratio 0.9 Sodium Level 140 mmol/L Potassium Level 3.6 mmol/L Chloride Level 106 mmol/L Carbon Dioxide Level 25 mmol/L Anion Gap 9.0 mmol/L Blood Urea Nitrogen 14 mg/dl Creatinine 0.97 mg/dl Est Creatinine Clear Calc Drug Dose 113.9 ml/min Estimated GFR () 104.3 Estimated GFR (Non- 90.0 BUN/Creatinine Ratio 14.4 Random Glucose 95 mg/dl Calcium Level 8.6 mg/dl Magnesium Level 1.9 mg/dl Total Creatine Kinase 99 U/L Creatine Kinase MB 0.6 ng/ml Creatine Kinase MB Ratio 0.6 Troponin I < 0.015 ng/ml Thyroid Stimulating Hormone (TSH) 0.897 uIu/ml Chemistry Specimen Hemolysis Urine Color YELLOW Urine Appearance CLEAR Urine pH 7.5 Urine Specific [place] 1.012 Urine Protein NEG Urine Glucose (UA) NEG Urine Ketones NEG Urine Occult Blood NEG Urine Nitrite NEG Urine Bilirubin NEG Urine Urobilinogen NEG Urine Leukocyte Esterase NEG Urine Opiates Screen NEG Urine Methadone, Qualitative NEG Urine Barbiturates NEG Urine Phencyclidine (PCP) Level NEG Ur Amphetamine/Methamphetamine NEG MDMA (Ecstasy) Screen NEG Urine Benzodiazepines Screen NEG Urine Cocaine Metabolite NEG Urine Marijuana (THC) NEG Lyme Disease IgG Antibody NEG Lyme Disease IgM Antibody NEG Test 04/24/17 04:43 04/24/17 10:04 White Blood Count 5.29 K/uL Red Blood Count 4.60 M/uL Hemoglobin 13.9 g/dL Hematocrit 40.1 % Mean Corpuscular Volume 87.2 fL Mean Corpuscular Hemoglobin 30.2 pg Mean Corpuscular Hemoglobin Concent 34.7 g/dl Platelet Count 197 K/uL Mean Platelet Volume 9.4 fL Neutrophils (%) (Auto) 49.4 % Lymphocytes (%) (Auto) 34.8 % Monocytes (%) (Auto) 8.9 % Eosinophils (%) (Auto) 5.9 % Basophils (%) (Auto) 0.4 % Neutrophils # (Auto) 2.62 K/uL Lymphocytes # (Auto) 1.84 K/uL Monocytes # (Auto) 0.47 K/uL Eosinophils # (Auto) 0.31 K/uL Basophils # (Auto) 0.02 K/uL RDW Standard Deviation 41.9 fL RDW Coefficient of Variation 13.2 % Immature Granulocyte % (Auto) 0.6 % Immature Granulocyte # (Auto) 0.03 K/uL Prothrombin Time 10.1 SECONDS Prothromb Time International Ratio 1.0 Activated Partial Thromboplast Time 24.7 SECONDS Partial Thromboplastin Ratio 1.0 Sodium Level 140 mmol/L Potassium Level 3.6 mmol/L Chloride Level 107 mmol/L Carbon Dioxide Level 26 mmol/L Anion Gap 7.0 mmol/L Blood Urea Nitrogen 14 mg/dl Creatinine 0.88 mg/dl Est Creatinine Clear Calc Drug Dose 125.6 ml/min Estimated GFR () 115.3 Estimated GFR (Non- 99.5 BUN/Creatinine Ratio 15.4 Random Glucose 107 mg/dl Calcium Level 8.3 mg/dl Magnesium Level 2.0 mg/dl Total Creatine Kinase 81 U/L Creatine Kinase MB 0.6 ng/ml Creatine Kinase MB Ratio 0.7 Troponin I < 0.015 ng/ml 25-Hydroxy Vitamin D Total 26.2 ng/ml Assessment and Plan The patient is a 51-year-old male was recently admitted [facility] from April 11 - April 12 for a syncopal episode. His significant other reports that they were out at [facility] today, he was walking around the function normally, however after leaving a store, he started to have significant memory loss issues and an inability to recognize common objects like a cell phone correctly. In the emergency department, he continues to have the same symptoms , and understandably has become mildly irritable. Symptoms that prompted his first admission were primarily that of syncope. With his symptoms today, he did not have a syncopal episode, and the significant memory impact is new compared to previous episode. Acute memory loss, confusion, irritability: - Admitted to [facility] for cardiac monitoring- no acute events - Cardiac enzymes- negative - Head CT and MRI of brain- unremarkable - EEG unremarkable - ECHO in 03/2017- unremarkable - UA negative - ESR, EMILEE ,ANCA, Arterial Hypercoagulable Studies, Ehrlichiosis, Heavy Metal screen, Parvo, EBV, CMV, RPR pending; Lyme negative - Drug toxicology screen negative - B12, folate, TSH- WNL - Consult Neurology- no further recommendations, f/u outpatient HTN- STABLE: Continue Amlodipine 10 mg daily HLD: Continue Atorvastatin 20 mg and ASA daily Vitamin D deficiency: - Continue Vitamin D supplement - Vitamin D level- 26.2 GERD: Continue Pantoprazole DVT prophylaxis: Ambulation Code status: LEVEL I, FULL Dispo: Discharge to home once medically stable
[2017-04-24 13:38] LABS: CKMB 0.8 ng/ml (0.5-3.6)
[2017-04-24 15:23] VITALS: BP 133/84; PULSE 71; TEMP 36.9; O2SAT 97
[2017-04-24 19:31] VITALS: BP 133/84; PULSE 75; TEMP 36.6; O2SAT 94
[2017-04-25 00:16] VITALS: BP 142/94; PULSE 70; TEMP 36.5; O2SAT 94
[2017-04-25 04:00] VITALS: BP 125/82; PULSE 64; TEMP 36.8; O2SAT 97
[2017-04-25 06:14] LABS: BASO % 0.3 %; BASO ABS # 0.02 K/uL (0-0.2); EOS % 6.7 %; EOS ABS # 0.39 K/uL (0-0.5); HEMATOCRIT 40.4 % (42-52); HEMOGLOBIN 14.3 g/dL (14.0-18.0); IG# 0.04 K/uL (0.00-0.02); LYMPH % 29.8 %; LYMPH ABS # 1.72 K/uL (1.2-3.4); MEAN CELL VOLUME 85.2 fL (80-100); MEAN CORPUSCULAR HEMOGLOBIN 30.2 pg (25-34); MEAN CORPUSCULAR HGB CONC 35.4 g/dl (32-36); MEAN PLATELET VOLUME 9.3 fL (7.4-10.4); MONO % 9.5 %; MONO ABS # 0.55 K/uL (0.11-0.59); NEUT ABS # 3.06 K/uL (1.4-6.5); PLATELET COUNT 189 K/uL (130-400); RED CELL DISTRIBUTION WIDTH SD 40.1 fL (36.4-46.3); WHITE BLOOD COUNT 5.78 K/uL (4.8-10.8)
[2017-04-25 06:23] LABS: PTT PATIENT 25.3 SECONDS (21.0-31.0)
[2017-04-25 06:49] LABS: CALCIUM 8.8 mg/dl (8.5-10.1); CREATININE 0.92 mg/dl (0.60-1.40); POTASSIUM 3.6 mmol/L (3.5-5.1)
[2017-04-25] MEDS: MULTIVITAMIN TAB PO SCH (07:34)
[2017-04-25] MEDS: PANTOprazole SOD 40 MG TAB PO SCH (07:34)
[2017-04-25] MEDS: ATORVASTATIN 20 MG TAB PO SCH (07:34)
[2017-04-25 07:35] VITALS: BP 135/93; PULSE 62; TEMP 36.8; O2SAT 97
[2017-04-25] MEDS: ASPIRIN 81 MG ECTAB PO SCH (07:35)
[2017-04-25] MEDS: AMLODIPINE BESYLATE 5 MG TAB PO SCH (07:35)
[2017-04-25] MEDS: CHOLECALCIFEROL 1000 INTER.UNIT TAB PO SCH (08:34)
--- NOTE | 2017-04-25 09:24 | Discharge Instructions ---
Discharge Instructions Date of Service Apr 25, 2017. Admission Reason for Admission: Acute Memory Impairment Discharge Discharge Diagnosis / Problem: Acute memory impairment Discharge Goals Goal(s): Decrease discomfort, Improve function, Increase independence, Learn about illness, Diagnostic testing, Therapeutic intervention, Prevent Disease Progression Activity Recommendations Activity Limitations: per Instructions/Follow-up section Lifting Limitations: gradually increase as tolerated Exercise/Sports Limitations: as tolerated May Resume Sexual Activity: when tolerated Shower/Bathe: no limitations Driving or Machine Use: Once cleared by PCP . Instructions / Follow-Up Instructions / Follow-Up You were admitted to [facility] for acute memory loss. The cause of your symptoms is unknown at this time. Additional laboratory test are still pending and you will need to follow-up with your PCP for these results. Resume all regular home medications as prescribed. FOLLOW-UPS: Please follow-up with your PCP within 5-7 days Please follow-up with Neurology within 1-2 weeks [place] [facility] [place] Please follow-up/keep all of your subspecialty appointments Current Hospital Diet Patient's current hospital diet: Regular Diet Discharge Diet Recommended Diet: Regular Diet Pending Studies Studies pending at discharge: yes List of pending studies: Serology, immunology, toxicology Work Instructions Return To Work: after follow-up (once cleared by PCP ) Additional Instructions: Medical Emergencies . Who to Call and When: Medical Emergencies: If at any time you feel your situation is an emergency, please call 911 immediately. . Non-Emergent Contact Non-Emergency issues call your: Primary Care Provider, Neurologist Call Non-Emergent contact if: you have any medication questions . . "Provider Documentation" section prepared by Claudia Azevedo. .
--- NOTE | 2017-04-25 09:30 | Discharge Summary ---
Discharge Summary Date of Service Apr 25, 2017. Discharge Summary Admission Date: Apr 23, 2017 at 20:18 Discharge Date: Apr 25, 2017 Discharge Disposition: Home Principal Diagnosis: Acute memory loss Problems/Secondary Diagnoses: Acute memory loss, confusion, irritability HTN HLD Vitamin D deficiency GERD vestibular condition Immunizations: Have You Had Influenza Vaccine: Unknown History of Tetanus Vaccine?: Unknown History of Pneumococcal: Unknown History of Hepatitis B Vaccine: Unknown Consultations: Neurology- Dr. Vallecillo Medication Reconciliation Continued Medications: Amlodipine (Norvasc) 10 Mg Tab 10 MG PO DAILY, TAB Aspirin (Aspirin Low Dose) 81 Mg Tab 81 MG PO QAM Atorvastatin (Lipitor) 20 Mg Tab 20 MG PO DAILY, TAB Cholecalciferol (Vitamin D3) 1,000 Unit Tab 2000 INTER.UNIT PO DAILY, 3 Refills Meclizine Hcl (Meclizine Hcl) 25 Mg Tab 25 MG PO QID PRN for Dizziness or Vertigo for 10 Days, #40 TAB Multivitamin (Multivitamin) Tab 1 TAB PO DAILY, TAB Pantoprazole Sodium (Protonix) 20 Mg Tab 20 MG PO DAILY PRN for EATS SPICY FOODS, #30 TAB Referrals At Discharge Follow up Referrals: Family Practice Referral - Within 1 Week with Jon Jaimes M.D. Neurologist Referral - Within 1-2 Weeks with Domi Lala D.O. Discharge Exam Patient feeling well this AM. States his memory is slowly returning, but he still is experiencing some gaps in what all has happened. Review of Systems: Constitutional: No fever, No chills, No sweats, No weakness, No fatigue Eyes: No worsening of vision ENT: No hearing loss Respiratory: No cough, No sputum, No wheezing, No shortness of breath, No hemoptysis Cardiovascular: No chest pain, No edema, No palpitations Abdomen: No pain, No nausea, No vomiting, No diarrhea, No constipation Musculoskeletal: No joint pain, No muscle pain, No swelling, No calf pain Genitourinary - Male: No hematuria, No dysuria Neurologic: + memory loss (memory slowly returning ), No weakness, No numbness/tingling Psychiatric: No depression symptoms, No anxiety Endocrine: No fatigue Hematologic / Lymphatic: No abnormal bleeding/bruising Integumentary: No rash, No itch, No new/changing skin lesions Physical Exam: General Appearance: no apparent distress, + obese Eyes: normal inspection, PERRL ENT: hearing grossly normal Neck: supple Respiratory/Chest: lungs clear, no respiratory distress, no accessory muscle use Cardiovascular: regular rate, rhythm Abdomen / GI: normal bowel sounds, non tender, soft Extremities: no calf tenderness, no pedal edema Neurologic/Psychiatric: alert, normal mood/affect, oriented x 3 Skin: normal color, warm/dry, no rash Lymphatic: no adenopathy Hospital Course The patient is a 51-year-old male was recently admitted [facility] from April 11 - April 12 for a syncopal episode. His significant other reports that they were out at [facility] today, he was walking around the function normally, however after leaving a store, he started to have significant memory loss issues and an inability to recognize common objects like a cell phone correctly. In the emergency department, he continues to have the same symptoms , and understandably has become mildly irritable. Symptoms that prompted his first admission were primarily that of syncope. With his symptoms today, he did not have a syncopal episode, and the significant memory impact is new compared to previous episode. Acute memory loss, confusion, irritability: - Admitted to [facility] for cardiac monitoring- no acute events - Cardiac enzymes- negative - Head CT and MRI of brain- unremarkable - EEG unremarkable - ECHO in 03/2017- unremarkable - UA negative - ESR, EMILEE ,ANCA, Arterial Hypercoagulable Studies, Ehrlichiosis, Heavy Metal screen, Parvo, EBV, CMV, RPR pending; Lyme negative - Drug toxicology screen negative - B12, folate, TSH- WNL - Consult Neurology- no further recommendations, f/u outpatient - Keep outpatient f/u w/ [facility] for vestibular condition HTN- STABLE: Continue Amlodipine 10 mg daily HLD: Continue Atorvastatin 20 mg and ASA daily Vitamin D deficiency: - Continue Vitamin D supplement - Vitamin D level- 26.2 GERD: Continue Pantoprazole DVT prophylaxis: Ambulation Code status: LEVEL I, FULL Dispo: Discharge to home - 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 Due to continued "foggy memory," instructed patient to return to work/drive once cleared by PCP. Total Time Spent: Greater than 30 minutes This includes examination of the patient, discharge planning, medication reconciliation, and communication with other providers. Discharge Instructions Please refer to the electronic Patient Visit Report (Discharge Instructions) for additional information. Follow-Up Please follow-up with your PCP within 5-7 days Please follow-up with Neurology within 1-2 weeks Follow-up with E[facility] as previously scheduled Please follow-up/keep all of your subspecialty appointments Additional Copies To Jon Jaimes M.D.
[2017-04-25 10:12] VITALS: BP 135/93; PULSE 62; TEMP 36.8; O2SAT 97
[2017-04-25] MEDS ORDERED: CHOL1000 PO (10:37)
[2017-04-26 02:44] LABS: ANTICARDIOLIPID AB IGA <11 APL (< = 11)
[2017-04-27 02:30] LABS: PARVOVIRUS IgM INDEX 0.1 (<0.9)
== END 2017-04-25 11:00 | disposition home or self-care (01) | DRG 948 ==
LOC: C.EDB 17:56 → C.MED 20:18 → ENRESERV 20:46
PROVIDERS: ADMIT Hospitalist; ATTEND Hospitalist
DX: R41.3 Other amnesia (principal); R41.0 Disorientation, unspecified; I10 Essential (primary) hypertension; E78.5 Hyperlipidemia, unspecified; K21.9 Gastro-esophageal reflux disease without esophagitis; E55.9 Vitamin D deficiency, unspecified; F17.200 Nicotine dependence, unspecified, uncomplicated; Z79.82 Long term (current) use of aspirin; Z79.899 Other long term (current) drug therapy; Z91.041 Radiographic dye allergy status

== ENCOUNTER → 2017-06-30 | Outpatient (CLI) | payer OTHER ==
[~2017-06-30] MED LIST changes: -ANT25 PO; +MECL1TAB42 PO; +PANT20TA2 PO
--- NOTE | 2017-06-30 08:34 | DIAGNOSTIC IMAGING REPORT ---
ABDOMEN LIMITED (US) CLINICAL HISTORY: Midline abdominal pain. COMPARISON STUDY: Abdomen and pelvis CT 02/09/2017. FINDINGS: There is a fat-containing midline ventral hernia which is partially reducible. No bowel or fluid identified within the hernia sac. The neck of the hernia measures approximately 1 cm. The hernia sac measures approximate 4 cm. IMPRESSION: Small partially reducible fat-containing midline ventral hernia. Electronically signed by: Silverio Yepez M.D. 06/30/2017 8:32 AM Dictated Date/Time: 06/30/2017 8:27 AM
== END | disposition home or self-care (01) ==
LOC: C.ULTR 07:12
PROVIDERS: ATTEND Family Medicine
DX: R10.9 Unspecified abdominal pain (principal); K43.9 Ventral hernia without obstruction or gangrene

== ENCOUNTER 2019-06-03 17:04 | Inpatient (IN) ==
[2019-06-03] MEDS ORDERED: NiCARDipine HCL INJ 2.5 MG/ML 10 ML AMP ONE (17:06)
[2019-06-03] MEDS ORDERED: HEPARIN (PORCINE) 1000 UNIT/ML 10 ML (CATH LAB USE ONLY) ONE (17:06)
[2019-06-03] MEDS ORDERED: fentaNYL citrate 100 MCG/2 ML VIAL ONE (17:06)
[2019-06-03] MEDS ORDERED: NITROGLYCERIN/D5W 100MCG/ML 20ML SYR ONE (17:06)
[2019-06-03] MEDS ORDERED: MIDAZOLAM HCL 1 MG/ML 2ML VIAL ONE (17:06)
[2019-06-03] MEDS ORDERED: HEPARIN SOD (PORCINE) 1000 UNIT/ML 1 ML VIAL IV ONE (17:10)
[2019-06-03] MEDS ORDERED: HYDROCORTISONE SOD SUCCINATE 100 MG/2 ML VIAL IV ONE (17:10)
[2019-06-03] MEDS ORDERED: TICAGRELOR 90 MG TAB PO ONE ×2 (17:15→17:18)
[2019-06-03] MEDS ORDERED: HEPARIN SOD (PORCINE) 1000 UNIT/ML 10 ML VIAL ONE (17:18)
[2019-06-03] MEDS ORDERED: HYDROCORTISONE SOD SUCCINATE 100 MG/2 ML VIAL ONE (17:26)
[2019-06-03] MEDS ORDERED: SODIUM CHLORIDE 0.9% 1000ML 1,000 ML IV SCH ×2 (17:30→19:30)
--- NOTE | 2019-06-03 17:31 | Emergency Department Note ---
History of Present Illness General Chief complaint: Heart Alert Stated complaint: HEART ALERT Time Seen by Provider: 06/03/19 17:09 Source: patient and EMS Mode of arrival: EMS Limitations: no limitations History of Present Illness Provider complaint: Chest pain, acute AZ This patient was brought in by EMS after having abrupt sudden onset of chest pain that started at 415. EMS was called and upon arrival they did give him aspirin 324 mg p.o. They called and I gave ALS medical command. I did look at the EKG and given the fact that it was inferior was concerned about a right- sided AZ and told him to hold the nitroglycerin he did get morphine 2 mg IV x2. Upon arrival his pain has gotten significantly better is down about a 6. He no longer has nausea vomiting or shortness of breath. No recent illness. No COVID type symptoms. No fever or chills or flulike illness.No history of similar complaints. Home Medications Home Medications Medication Instructions Recorded Confirmed Type meclizine 25 mg tablet 25 mg PO Q6H PRN #20 tab 09/12/18 06/03/19 History multivitamin 1 tab PO DAILY 09/12/18 06/03/19 History pantoprazole 40 mg tablet,delayed 40 mg PO DAILY #90 tab 10/10/18 06/03/19 Rx release cholecalciferol (vitamin D3) 25 2,000 units PO DAILY #90 tab 12/12/18 06/03/19 History mcg (1,000 unit) tablet atorvastatin 20 mg tablet 20 mg PO DAILY #90 tab 01/31/19 06/03/19 Rx clindamycin phosphate 1 % lotion 1 appln TOP DAILY #60 ml 04/02/19 06/03/19 Rx amlodipine 10 mg tablet 10 mg PO DAILY #90 tab 05/10/19 06/03/19 Rx aspirin 81 mg PO DAILY 06/03/19 06/03/19 History Allergies Allergy/AdvReac Type Severity Reaction Status Date / Time Iodinated Contrast Media Allergy Intermediate ITCHY Verified 06/03/19 17:41 lisinopril AdvReac Cough Verified 06/03/19 17:41 Past Med/Surg History Medical History Hearing loss (Inactive) Surgical History H/O hernia repair (Inactive) History of hiatal hernia Anterior gastropexy History of sinus surgery History of umbilical hernia repair Laparoscopy repair S/P laparoscopy Diagnostic Family History Father Diabetes Hypertension Myocardial infarction Mother Hypertension Other Family history non-contributory Denies family history of Ovarian cancer Prostate cancer Crohn's disease Breast cancer Colorectal cancer Social History marital status: Current Living Situation: Family current occupational status: previously employed Feels Safe at Home: Yes Smoking Status: Current some day smoker Tobacco Type: smokeless tobacco ; Hx Alcohol Use: Yes (Occasional ) Hx Substance Use: No caffeine: Yes Dental Care, Regularly: Yes Physical Activity Frequency: Does not Exercise Seatbelt Use: sometimes Sunscreen Use: Yes Review of Systems A total of 10 systems reviewed and were otherwise negative Physical Exam Vital Signs Vital Signs - 24 hr 06/03/19 17:17 06/03/19 17:21 06/03/19 17:23 Temperature Temperature Source Pulse Rate 72 64 65 Pulse Rate from SpO2 Sensor 63 64 Respiratory Rate 26 H 18 20 Respiratory Effort / Characteristics Labored Respiratory Depth Shallow Blood Pressure 115/84 115/84 Blood Pressure Mean 94 90 Blood Pressure Position Sitting Pulse Oximetry 99 98 98 Oxygen Delivery Method Room Air Sepsis Recent Fever Within 48 Hours No Sepsis Action Taken by Nursing No Action Required 06/03/19 17:30 06/03/19 17:39 06/03/19 17:40 Temperature 36.6 C Temperature Source Oral Pulse Rate 69 81 Pulse Rate from SpO2 Sensor 67 85 Respiratory Rate 19 17 Respiratory Effort / Characteristics Respiratory Depth Blood Pressure Blood Pressure Mean Blood Pressure Position Pulse Oximetry 98 94 Oxygen Delivery Method Sepsis Recent Fever Within 48 Hours Sepsis Action Taken by Nursing 06/03/19 17:45 06/03/19 17:50 06/03/19 18:00 Temperature Temperature Source Pulse Rate 78 82 59 L Pulse Rate from SpO2 Sensor 79 81 59 L Respiratory Rate 16 19 21 Respiratory Effort / Characteristics Respiratory Depth Blood Pressure 150/103 H 140/90 Blood Pressure Mean 116 96 Blood Pressure Position Pulse Oximetry 96 97 96 Oxygen Delivery Method Sepsis Recent Fever Within 48 Hours Sepsis Action Taken by Nursing 06/03/19 18:10 06/03/19 18:16 06/03/19 18:21 Temperature Temperature Source Pulse Rate 64 60 Pulse Rate from SpO2 Sensor 61 Respiratory Rate 16 19 Respiratory Effort / Characteristics Respiratory Depth Blood Pressure 148/98 H Blood Pressure Mean 110 Blood Pressure Position Pulse Oximetry 98 Oxygen Delivery Method Room Air Sepsis Recent Fever Within 48 Hours Sepsis Action Taken by Nursing General: Well developed well nourished mildly uncomfortable appearing middle- aged male who appears in no acute respiratory distress, breathing comfortably on room air. Normal speech HEENT: Normal cephalic atraumatic. Sclera anicteric. Pupils are equal round and reactive to light. Extraocular movements are intact. Oropharynx is pink with moist mucous membranes. No swelling of the mouth lips or tongue. Neck: Supple with a midline trachea. No meningeal signs or stiffness, no JVD or bruits. No Stridor. Chest: Clear to auscultation bilaterally. No wheezes or rhonchi. No increased work of breathing. Heart: Regular rate and rhythm without murmurs or gallops. Abdomen: Soft nontender, nondistended without rebound guarding or rigidity. Extremities: No cyanosis clubbing or edema. No calf tenderness or assymetry Spine/Back. Non tender to palpation. No CVA tenderness Skin: Good turgor without rashes. Neurologic exam: Cranial nerves two through 12 are intact. Motor and sensation are intact and symmetrical throughout. Course Administered Medications Discontinued Medications Diphenhydramine HCl (Benadryl) Confirm Administered Dose 50 mg .ROUTE .STK-MED ONE Stop: 06/03/19 17:35 Last Admin: 06/03/19 17:36 Dose: 50 mg Documented by: [id number] Famotidine (Pepcid 20mg Iv Push) Confirm Administered Dose 20 mg IV .STK-MED ONE Stop: 06/03/19 18:00 Last Admin: 06/03/19 18:00 Dose: 20 mg Documented by: [id number] Heparin Sodium (Porcine) (Heparin Iv Bolus) Confirm Administered Dose 10,000 units .ROUTE .STK-MED ONE Stop: 06/03/19 17:19 Last Admin: 06/03/19 17:20 Dose: 5,000 units Documented by: [id number] Cosigned by: [id number] Heparin Sodium/Sodium Chloride (Heparin/Nss 1000 Unit/500ml Flush Bag) Confirm Administered Dose 3,000 units IV .STK-MED ONE Stop: 06/03/19 17:07 Last Admin: 04/20/20 18:56 Dose: 3,000 units Documented by: [id number] Hydrocortisone Sodium Succinate (Solu-Cortef) Confirm Administered Dose 100 mg .ROUTE .STK-MED ONE Stop: 06/03/19 17:27 Last Admin: 06/03/19 17:36 Dose: 100 mg Documented by: [id number] Sodium Chloride (Nss 1000ml) 1,000 mls @ 999 mls/hr IV .Q1H1M CRYS Stop: 06/03/19 18:30 Last Admin: 06/03/19 17:36 Dose: 999 mls/hr Documented by: [id number] Nicardipine HCl (Cardene) Confirm Administered Dose 25 mg .ROUTE .STK-MED ONE Stop: 06/03/19 17:07 Last Admin: 06/03/19 18:55 Dose: 25 mg Documented by: [id number] Nitroglycerin/Dextrose (Nitroglycerin/D5w 100 Mcg/Ml 20ml Syringe) Confirm Administered Dose 2,000 mcg .ROUTE .STK-MED ONE Stop: 06/03/19 17:07 Last Admin: 06/03/19 18:56 Dose: 2,000 mcg Documented by: [id number] Ticagrelor (Brilinta) Confirm Administered Dose 180 mg PO .STK-MED ONE Stop: 06/03/19 17:19 Last Admin: 06/03/19 17:35 Dose: 180 mg Documented by: [id number] Critical Care Time Critical Care Time: Yes Total Critical Care Time: 45 Due to the patient's acute AZ and need for emergent care and frequent reassessment assessment evaluation, multiple IV medications and consultations, I have personally spent greater than 45 minutes of critical care time in the direct management of this patient. This includes bedside care, interpretation of diagnostic studies, and testing, discussion with consultants, patient, and family members, and other required patient management activities. This 30 minutes is in excess of all separately billable procedures. Medical Decision Making Differential Diagnosis Acute AZ, CHF, arrhythmia, musculoskeletal, anemia, infection, aortic pathology Medical Records Attestation: I reviewed the patient's medical records. Home Medications Current Medication List: was personally reviewed by me Laboratory Data Attestation: I reviewed the patient's lab results. Result diagrams: 06/03/19 17:15 06/03/19 17:15 Lab Results 06/03/19 06/03/19 06/03/19 Range/Units 17:15 17:15 17:15 WBC 9.87 (4.8-10.8) K/uL RBC 5.11 (4.7-6.1) M/uL Hgb 15.1 (14.0-18.0) g/dL Hct 43.6 (42-52) % MCV 85.3 (80-100) fL MCH 29.5 (25-34) pg MCHC 34.6 (32-36) g/dL RDW Std Deviation 42.6 (36.4-46.3) fL RDW Coeff of Josh 13.9 (11.5-14.5) % Plt Count 263 (130-400) K/uL MPV 10.0 (7.4-10.4) fL Immature Gran % (Auto) 0.4 % Neut % (Auto) 70.7 % Lymph % (Auto) 18.1 % Sutton % (Auto) 9.0 % Eos % (Auto) 1.4 % Baso % (Auto) 0.4 % Immature Gran # (Auto) 0.04 H (0.00-0.02) K/uL Neut # (Auto) 6.97 H (1.4-6.5) K/uL Lymph # (Auto) 1.79 (1.2-3.4) K/uL Sutton # (Auto) 0.89 H (0.11-0.59) K/uL Eos # (Auto) 0.14 (0-0.5) K/uL Baso # (Auto) 0.04 (0-0.2) K/uL PT 10.5 (9.0-12.0) Seconds INR 1.0 (0.9-1.1) APTT 20.7 L (21.0-31.0) Seconds PTT Ratio 0.7 Sodium 140 (136-145) mmol/L Potassium 3.6 (3.5-5.1) mmol/L Chloride 107 (98-107) mmol/L Carbon Dioxide 27 (21-32) mmol/L Anion Gap 7.0 (3-11) BUN 18 (7-18) mg/dl Creatinine 1.33 (0.6-1.4) mg/dl Est Cr Clr Drug Dosing 86.6 ml/min Est GFR ( Amer) 70.2 Est GFR (Non-Af Amer) 60.6 BUN/Creatinine Ratio 13.5 (10-20) Glucose 128 H (70-99) mg/dl Calcium 9.5 (8.5-10.1) mg/dl Total Bilirubin 0.4 (0.2-1) mg/dl AST 21 (15-37) U/L ALT 48 (12-78) U/L Alkaline Phosphatase 135 H (45-117) U/L POC Troponin I (0-0.045) ng/ml Troponin I < 0.015 (0-0.045) ng/ml Total Protein 7.7 (6.4-8.2) gm/dl Albumin 4.0 (3.4-5.0) gm/dl Globulin 3.7 (2.5-4.0) gm/dl Albumin/Globulin Ratio 1.1 (0.9-2) Lipase 93 (73-393) U/L 06/03/19 Range/Units 17:30 WBC (4.8-10.8) K/uL RBC (4.7-6.1) M/uL Hgb (14.0-18.0) g/dL Hct (42-52) % MCV (80-100) fL MCH (25-34) pg MCHC (32-36) g/dL RDW Std Deviation (36.4-46.3) fL RDW Coeff of Josh (11.5-14.5) % Plt Count (130-400) K/uL MPV (7.4-10.4) fL Immature Gran % (Auto) % Neut % (Auto) % Lymph % (Auto) % Sutton % (Auto) % Eos % (Auto) % Baso % (Auto) % Immature Gran # (Auto) (0.00-0.02) K/uL Neut # (Auto) (1.4-6.5) K/uL Lymph # (Auto) (1.2-3.4) K/uL Sutton # (Auto) (0.11-0.59) K/uL Eos # (Auto) (0-0.5) K/uL Baso # (Auto) (0-0.2) K/uL PT (9.0-12.0) Seconds INR (0.9-1.1) APTT (21.0-31.0) Seconds PTT Ratio Sodium (136-145) mmol/L Potassium (3.5-5.1) mmol/L Chloride (98-107) mmol/L Carbon Dioxide (21-32) mmol/L Anion Gap (3-11) BUN (7-18) mg/dl Creatinine (0.6-1.4) mg/dl Est Cr Clr Drug Dosing ml/min Est GFR ( Amer) Est GFR (Non-Af Amer) BUN/Creatinine Ratio (10-20) Glucose (70-99) mg/dl Calcium (8.5-10.1) mg/dl Total Bilirubin (0.2-1) mg/dl AST (15-37) U/L ALT (12-78) U/L Alkaline Phosphatase (45-117) U/L POC Troponin I < 0.03 (0-0.045) ng/ml Troponin I (0-0.045) ng/ml Total Protein (6.4-8.2) gm/dl Albumin (3.4-5.0) gm/dl Globulin (2.5-4.0) gm/dl Albumin/Globulin Ratio (0.9-2) Lipase (73-393) U/L Imaging Data Attestation: I personally reviewed and interpreted this imaging study as follows: My Impression: Chest x-ray: No acute infiltrate, failure, pneumothorax seen Blood Pressure Blood Pressure Findings: Normal blood pressure MDM Narrative This patient comes in as described above. He is placed in room a 1. I did call heart alert prior to his arrival. Dr. Colunga was here upon his arrival and he actually has another patient that is going to the [facility] for an acute AZ at present and Mr. Gonzalez will go in about half hour. In the meantime, he wants me to start him on IV heparin and Brilinta. Additionally Dr. Chavarria from cardiology was here at the bedside as well. The patient also has a history of getting itchy with IV contrast in light of this we did give him hydrocortisone 100 mg and IV as well as Benadryl 50 mg IV for pretreatment as well as Pepcid 20 mg IV. His EKG does confirm inferior AZ here with some posterior changes as well. Clinically he does not have congestive heart failure. He was given additional IV fluids. His initial troponin was negative. Is no acute electrolyte or metabolic abnormalities. He had received IV morphine prior to arrival and with the Benadryl he also seem to be doing a lot better pain vaughan. He was taken emergently to the [facility] for treatment of his acute AZ. Impression & Plan Acute AZ, Chest pain, Diaphoresis, Allergy to iodine Discharge Plan Visit Data *Final* Discharge Date/Time: 06/03/19 18:21 Chief Complaint: Heart Alert Stated Complaint: HEART ALERT ED Provider: Jarred Redding Discharge Problem: Acute AZ, Chest pain, Diaphoresis, Allergy to iodine Patient Disposition: Still a Patient Discharge Instructions Interventions: ED Discharge Assessment Last Done: 06/03/19 18:21 Discharge Problem: Acute AZ Qualifiers: Myocardial infarction type: ST elevation myocardial infarction Involved coronary artery: right coronary artery Qualified Code(s): I21.11 - ST elevation (STEMI) myocardial infarction involving right coronary artery Chest pain Qualifiers: Chest pain type: precordial pain Qualified Code(s): R07.2 - Precordial pain
[2019-06-03 17:32] LABS: Basophils # (auto) 0.04 K/uL (0-0.2); Basophils % (auto) 0.4 %; Eosinophils # (auto) 0.14 K/uL (0-0.5); Eosinophils % (auto) 1.4 %; Hematocrit (blood only) 43.6 % (42-52); Hemoglobin 15.1 g/dL (14.0-18.0); Immature Granulocytes # (auto) 0.04 K/uL (0.00-0.02); Immature Granulocytes % (auto) 0.4 %; Lymphocytes # (auto) 1.79 K/uL (1.2-3.4); Lymphocytes % (auto) 18.1 %; Mean Corpuscular Hemoglobin 29.5 pg (25-34); Mean Corpuscular Hgb Conc 34.6 g/dL (32-36); Mean Corpuscular Volume 85.3 fL (80-100); Monocytes # (auto) 0.89 K/uL (0.11-0.59); Neutrophils # (auto) 6.97 K/uL (1.4-6.5); Neutrophils % (auto) 70.7 %; Platelet Count 263 K/uL (130-400); RDW Coefficient of Variation 13.9 % (11.5-14.5); RDW Standard Deviation 42.6 fL (36.4-46.3); Red Blood Count 5.11 M/uL (4.7-6.1); White Blood Count 9.87 K/uL (4.8-10.8)
[2019-06-03] MEDS ORDERED: DiphenhydrAMINE HCL 50 MG/ML VIAL ONE (17:34)
[2019-06-03] MEDS ORDERED: MoRPHine SULFATE 2 MG/ML CARP IV STA (17:40)
[2019-06-03] MEDS ORDERED: DiphenhydrAMINE HCL 50 MG/ML VIAL IV STA (17:41)
--- NOTE | 2019-06-03 17:42 | Cardiology Consultation ---
Date of Consultation June 03, 2019 Assessment & Plan (1) ST elevation myocardial infarction (STEMI) of inferolateral wall: (2) Allergy to iodine: (3) Hyperlipidemia: Patient has already received ASA 324 and morphine 4 mg prehospital. Repeat EKG with interval improvement. Given contrast allergy proceed with hydrocortisone 100 mg IV x 1 along with 50 mg of IV benadryl, and 20 mg of IV pepcid. BP is still borderline, so have not administered beta andry or nitroglycerin thus far. Limited bedside echocardiogram revealed no pericardial effusion. Cardiac catheterization laboratory has been activated via the "heart alert "protocol. In an effort to facilitate treatment for the patient, Mr Fowler was assessed by the undersigned. There was actually another patient with an ST segment elevation myocardial infarction that arrived just minutes before this patient, and therefore we will proceed with medical stabilization and treatment for Mr Fowler's contrast allergy, and will plan for cardiac catheterization after the first procedure is completed. History of Present Illness History of Present Illness Mr Fowler is a 53 year old male seen in urgent cardiology consultation in the ED per the request of Dr Redding for the evaluation of and ST elevation myocardial infarct. Patient states he was in his normal state of health, at 430 this afternoon, he mowed his grass with a riding lawnmower, and then he was attempting to fix a pair of siding Of his house. He states that he does not get around very well, and typically walks with a cane. We will completing his labor, he started feeling onset of upset stomach, and pain in his chest that radiated to between his shoulder blades and down his left arm. He states that he felt ill, vomitted several times, and rested on the ground. He ultimately summoned EMS, and a prehospital electrocardiogram performed at 1641 revealed sinus rhythm at 62 bpm with [address] segment elevation noted in the inferior leads II, III, and aVF, ST elevation als oin leads V5 and V6 and reciprocal ST segment depression ST segment depression in leads V1 and V2. His blood pressure as assessed by EMS prehospital included a systolic blood pressure in the range of 104 to 110 mmHg. He received aspirin 324 mg chewed, as well as 4 mg of IV morphine prehospital. On arrival to the emergency room, he states that his discomfort which had originally been an 8 out of 10 in severity had improved to approximately a 6 out of 10 severity, but noted Ongoing chest discomfort radiating toward her shoulder blades. Repeat EKG performed at 1726 in the emergency room revealed sinus rhythm at 64 bpm, ongoing inferior ST segment elevation noted, but much improved compared to the initial tracing. Past Medical History: HTN Hernia repair dyslipidemia Iodinated contrast allergy with hives Echocardiogram performed 04/11/2017 for evaluation of a syncopal episode revealed borderline concentric left ventricular hypertrophy, normal left ventricular systolic function, LVEF 55 to 60% at that time, trace aortic valve regurgitation, trace MR, trace pulmonic regurgitation. Allergies Allergy/AdvReac Type Severity Reaction Status Date / Time Iodinated Contrast Media Allergy Intermediate ITCHY Verified 06/03/19 17:41 lisinopril AdvReac Cough Verified 06/03/19 17:41 Home Medications Home Medications Medication Instructions Recorded Confirmed Type meclizine 25 mg tablet 25 mg PO Q6H PRN #20 tab 09/12/18 04/17/19 History multivitamin 1 tab PO DAILY 09/12/18 04/17/19 History pantoprazole 40 mg tablet,delayed 40 mg PO DAILY #90 tab 10/10/18 04/17/19 Rx release cholecalciferol (vitamin D3) 25 2,000 units PO DAILY #90 tab 12/12/18 04/17/19 History mcg (1,000 unit) tablet atorvastatin 20 mg tablet 20 mg PO DAILY #90 tab 01/31/19 04/17/19 Rx clindamycin phosphate 1 % lotion 1 appln TOP DAILY #60 ml 04/02/19 04/17/19 Rx amlodipine 10 mg tablet 10 mg PO DAILY #90 tab 05/10/19 06/03/19 Rx aspirin 81 mg PO DAILY 06/03/19 06/03/19 History Patient History Medical History Hearing loss (Inactive) Surgical History H/O hernia repair (Inactive) History of hiatal hernia Anterior gastropexy History of sinus surgery History of umbilical hernia repair Laparoscopy repair S/P laparoscopy Diagnostic Family History Father Diabetes Hypertension Myocardial infarction Mother Hypertension Other Family history non-contributory Denies family history of Ovarian cancer Prostate cancer Crohn's disease Breast cancer Colorectal cancer Social History marital status: Current Living Situation: Family current occupational status: previously employed Feels Safe at Home: Yes Smoking Status: Current some day smoker Tobacco Type: smokeless tobacco ; Hx Alcohol Use: Yes (Occasional ) Hx Substance Use: No caffeine: Yes Dental Care, Regularly: Yes Physical Activity Frequency: Does not Exercise Seatbelt Use: sometimes Sunscreen Use: Yes Review of Systems Review of Systems: All systems reviewed & are unremarkable except as noted in HPI & below Physical Exam Physical Exam: Temp Pulse Resp BP Pulse Ox 36.6 C 81 17 115/84 94 06/03/19 17:39 06/03/19 17:40 06/03/19 17:40 06/03/19 17:21 06/03/19 17:40 Constitutional: WD/WN, vitals as above Respiratory: normal respiratory effort, lungs clear to auscultation Cardiovascular: RRR, no murmur, no edema Gastrointestinal (Abdomen): normal bowel sounds, soft, nontender, no hepatosplenomegaly Healed midline abdominal incision, residual ventral hernia Neurologic: PERRL, EOMI, accommodation nl, no face palsy, no dysarthria Results & Data ([facility]) Vital Signs (Past 12 Hours) Vital Signs Pulse Resp BP Pulse Ox 06/03/19 17:17 72 26 H 115/84 99 Laboratory Results Cardiac Enzymes 06/03/19 Range/Units 17:15 AST 21 (15-37) U/L Coagulation 06/03/19 Range/Units 17:15 PT 10.5 (9.0-12.0) Seconds APTT 20.7 L (21.0-31.0) Seconds CBC 06/03/19 Range/Units 17:15 WBC 9.87 (4.8-10.8) K/uL RBC 5.11 (4.7-6.1) M/uL Hgb 15.1 (14.0-18.0) g/dL Hct 43.6 (42-52) % Plt Count 263 (130-400) K/uL Neut # (Auto) 6.97 H (1.4-6.5) K/uL Lymph # (Auto) 1.79 (1.2-3.4) K/uL [place] # (Auto) 0.89 H (0.11-0.59) K/uL Eos # (Auto) 0.14 (0-0.5) K/uL Baso # (Auto) 0.04 (0-0.2) K/uL Comprehensive Metabolic Panel 06/03/19 Range/Units 17:15 Sodium 140 (136-145) mmol/L Potassium 3.6 (3.5-5.1) mmol/L Chloride 107 (98-107) mmol/L Carbon Dioxide 27 (21-32) mmol/L BUN 18 (7-18) mg/dl Creatinine 1.33 (0.6-1.4) mg/dl Glucose 128 H (70-99) mg/dl Calcium 9.5 (8.5-10.1) mg/dl AST 21 (15-37) U/L ALT 48 (12-78) U/L Albumin 4.0 (3.4-5.0) gm/dl Intake and Output 06/03/19 06/03/19 06/03/19 06:59 14:59 22:59 Other: Weight 122 kg Patient Weight 06/04/19 06:59 Weight 122 kg Diagnostic Findings [id number] troponin within normal limits x1
[2019-06-03 17:47] LABS: Alanine Aminotransferase 48 U/L (12-78); Aspartate Aminotransferase 21 U/L (15-37); BUN Creatinine Ratio 13.5 (10-20); Blood Urea Nitrogen 18 mg/dl (7-18); Calcium 9.5 mg/dl (8.5-10.1); Carbon Dioxide 27 mmol/L (21-32); Chloride 107 mmol/L (98-107); Creatinine Clr Calc Pharmacy 86.6 ml/min; Est GFR (African American) 70.2; Est GFR (Non-African American) 60.6; Glucose 128 mg/dl (70-99); Lipase 93 U/L (73-393); Partial Thromboplastin Ratio 0.7; Partial Thromboplastin Time 20.7 Seconds (21.0-31.0); Potassium 3.6 mmol/L (3.5-5.1); Prothrombin Time 10.5 Seconds (9.0-12.0); Sodium 140 mmol/L (136-145)
--- NOTE | 2019-06-03 17:49 | XRay Report ---
SINGLE VIEW CHEST CLINICAL HISTORY: Atypical chest pain. FINDINGS: An AP, portable, upright chest radiograph is compared to study dated 04/11/2017. Correlation is made with chest CT dated 08/03/2015. The examination is degraded by portable technique and patient rotation. The heart is enlarged. The pulmonary vasculature is noncongested. There is mild bibasilar atelectasis. No airspace consolidation or large pleural effusion is identified. No pneumothorax is se en. The bony thorax is grossly intact. IMPRESSION: Cardiomegaly with no active disease in the chest. ACT 112: Negative or not required by law. Electronically signed by: Bebeto Palmer M.D. 06/03/2019 5:48 PM
[2019-06-03 17:52] LABS: Albumin Globulin Ratio 1.1 (0.9-2); Alkaline Phosphatase 135 U/L (45-117); Bilirubin,Total 0.4 mg/dl (0.2-1); Globulin 3.7 gm/dl (2.5-4.0); Total Protein 7.7 gm/dl (6.4-8.2); Troponin I < 0.015 ng/ml (0-0.045)
[2019-06-03] MEDS ORDERED: FAMOTIDINE 20MG/5ML IV PUSH IV STA (17:52)
[2019-06-03] MEDS ORDERED: FAMOTIDINE 20MG/5ML IV PUSH IV ONE (17:59)
[2019-06-03 19:08] LABS: iSTAT Creatinine 1.2 mg/dl (0.6-1.3); iSTAT Ionized Calcium 1.14 mmol/l (1.12-1.32); iSTAT Potassium 3.6 mmol/L (3.3-5.0)
--- NOTE | 2019-06-03 19:24 | Post Anesthesia Assessment ---
Date of Service June 03, 2019 Post Sedation Assessment Vital Signs Temp Pulse Resp BP Pulse Ox 06/03/19 18:16 60 19 148/98 H 98 06/03/19 18:10 64 16 06/03/19 18:00 59 L 21 140/90 96 06/03/19 17:50 82 19 97 06/03/19 17:45 78 16 150/103 H 96 06/03/19 17:40 81 17 94 06/03/19 17:39 97.9 F 06/03/19 17:30 69 19 98 06/03/19 17:23 65 20 98 06/03/19 17:21 64 18 115/84 98 06/03/19 17:17 72 26 H 115/84 99 Recovery Score Activity: Moves 4 extremities Respiration: Deep Breath/Cough Circulation: +/-20% PreAnes Value Consciousness: Fully Awake Oxygen Saturation: O2 needed for >90% Discharge Sedation Level of Care: Fast Track Phase II Post Sedation Plan On clinical assessment, the patient appears to have tolerated the sedation without complications. Patient is recovering as anticipated. Patient will continue to be monitored by nursing and may be discharged when sedation discharge criteria are met per below protocol. Upon Completions of procedure up to 15 minutes continue every 5 minute vital signs and the P.A.R. score; then discharge to a Phase I or Fast Track to Phase II per the following guidelines: * Discharge Patient to appropriate Phase II area if PAR is 8 or greater or return to pre- procedure baseline. The post - procedure orders will be as directed. * If PAR score is less than 8 or not return to pre-procedure baseline then patient will follow Phase I monitoring till PAR is reached for Phase II. The Phase I may be done in procedure room or may call to secure a Phase I area. * If naloxone or flumazenil are used for reversal, hold in Phase I for continued monitoring from when last reversal dose was given for a minimum of 60 minutes or longer pending the nurse and/or physician discretion of patient condition before discharge to Phase II. Please call the Sedation Physician to re-evaluate and complete post-note for discharge to Phase II area. Do NOT discharge from procedure sedation or Phase 1 until post- sedation evaluation note is complete by procedure /sedation MD Sedation Discharge Instructions to be given to the patient at discharge to home.
[2019-06-03] MEDS ORDERED: ONDANSETRON INJ 2 MG/ML 2 ML VIAL IV PRN (19:27)
--- NOTE | 2019-06-03 19:27 | Post Operative Brief Note ---
Cardiology Brief Post Op Date of Surgery June 03, 2019 Pre & Post Diagnosis Operation Date: 06/03/19 17:15 <No data on this case meets the specified criteria> Procedure -- Front Desk Receptionist Angel Colunga MD Personal [employer] [place] Estimated Blood Loss 15 Findings See Below 1. Inferolateral STEMI 2. 99% acute mid circumflex. TIMI2 flow distal 3. No significant non-culprit vessel CAD 4. Successful PCI of mid circumflex with single RUBÉN (4.0 x 18mm Sai). Recommendatons: - DAPT - Start beta-andry, SARAH, statin Anesthesia Type RN Sedation Complications none Disposition Disposition: Surgical ICU
[2019-06-03] MEDS ORDERED: ICU PROTOCOL FOR HYPERGLYCEMIA PRN (19:32)
[2019-06-03] MEDS ORDERED: NITROGLYCERIN SL 0.4 MG/TAB TAB SL PRN (19:32)
[2019-06-03] MEDS ORDERED: ACETAMINOPHEN 325 MG TAB PO PRN (19:32)
--- NOTE | 2019-06-03 20:04 | Critical Care Consultation ---
Date of Consultation June 03, 2019 Assessment & Plan (1) Admitted to intensive care unit: Reason Critically Ill: 53-year-old male with acute inferior STEMI status post PTCA with RUBÉN x1 to the circumflex artery requiring close hemodynamic monitoring status post intervention. NEURO - * CAM ICU: NEGATIVE * Recurrent vertiginous symptoms: * Monitor closely before any concerning neurological component. * Continue to follow outpatient otherwise. CARDIAC/VASCULAR - * Acute inferior STEMI s/p PTCA w/ DESx1 to the circumflex: * Chest pain-free at this time. * Trend troponins. * Check lipids. * A.m. echo. * ASCVD Rx per typical. * Monitor on telemetry. RESPIRATORY - * No significant history of respiratory disease. GI/NUTRITION - * AHA diet. * Prophylaxis: RENAL/LYTES - * No significant electrolyte derangements. * IVF: NSS@100mL/hr - * No concerns at this time. ENDO - * No h/o DM or thyroid dz. * BSGs per unit protocol. ISS --> gtt per unit policy. HEME - * Stable H&H. ID - * No concerning infectious component. LINES/IV ACCESS - * PIVs x2 DVT PROPHYLAXIS - * Hold s/p Heparin/Brilinta. * SCDs I have personally spent 35 minutes of critical care time in the direct management of this patient. This is a life/limb threatening event. This includes time spent evaluating patient, direct bedside care, chart review, placing orders, interpretation of diagnostic studies, discussion with consultants, patient, and family members, as well as other required patient management activities. This time is exclusive of all separately billable procedures, and teaching time and separate from and in addition to any other critical care service time. Thank you for allowing us to participate in the care of this patient. Please refer to my attending physician's documentation for any further recommendations. (2) ST elevation myocardial infarction (STEMI) of inferolateral wall: (3) S/P PTCA (percutaneous transluminal coronary angioplasty): (4) S/P drug eluting coronary stent placement: (5) Chest pain: (6) Diaphoresis: (7) Acute VT: (8) Balance problem: (9) Hyperlipidemia: (10) Depression: (11) Acid reflux disease: (12) Peripheral vertigo: History of Present Illness Attending Physician: Angie Hartman DO History of Present Illness Patient is a 53-year-old male with a significant past medical history of hypertension, hyperlipidemia, acid reflux, balance issues with concerns for vertigo-like syndrome. Patient reports that he was working in his yard most of the day and upon entering his house he developed pain to the LEFT-sided chest and shoulder. He initially felt as though it was musculoskeletal pain as he does reach out often with his LEFT arm in an effort to correct his balance issues. The pain became intense and he was doubled over after entering his house. He developed diaphoresis and vomited. His significant other contacted EMS. Patient was noted to have ST segment elevations on his EKG. Heart alert was called in. Patient was taken emergently to the catheterization suite where he underwent successful PTCA with RUBÉN x1 to the circumflex artery. No intraprocedural complications noted. Upon arrival in the ICU, patient is awake, alert, and oriented. He reports that he feels "100% better" than when he arrived. He complains of some mild dull back pain which he had noted earlier, but otherwise he reports being symptom- free. Patient rates his current discomfort as a 1/10. He denies any headaches, dizziness, lightheadedness, palpitations, shortness of breath, pleuritic pain, nausea, vomiting, or numbness/weakness to the extremities Allergies Allergy/AdvReac Type Severity Reaction Status Date / Time Iodinated Contrast Media Allergy Intermediate ITCHY Verified 06/03/19 17:41 lisinopril AdvReac Cough Verified 06/03/19 17:41 Home Medications Home Medications Medication Instructions Recorded Confirmed Type meclizine 25 mg tablet 25 mg PO Q6H PRN #20 tab 09/12/18 06/03/19 History multivitamin 1 tab PO DAILY 09/12/18 06/03/19 History pantoprazole 40 mg tablet,delayed 40 mg PO DAILY #90 tab 10/10/18 06/03/19 Rx release cholecalciferol (vitamin D3) 25 2,000 units PO DAILY #90 tab 12/12/18 06/03/19 History mcg (1,000 unit) tablet atorvastatin 20 mg tablet 20 mg PO DAILY #90 tab 01/31/19 06/03/19 Rx clindamycin phosphate 1 % lotion 1 appln TOP DAILY #60 ml 04/02/19 06/03/19 Rx amlodipine 10 mg tablet 10 mg PO DAILY #90 tab 05/10/19 06/03/19 Rx aspirin 81 mg PO DAILY 06/03/19 06/03/19 History Patient History Medical History Acid reflux disease (Acute) Hearing loss (Inactive) HTN (hypertension) (Chronic) Hyperlipidemia (Acute) Surgical History H/O hernia repair (Inactive) History of hiatal hernia Anterior gastropexy History of sinus surgery History of umbilical hernia repair Laparoscopy repair S/P laparoscopy Diagnostic Family History Father Diabetes Hypertension Myocardial infarction Mother Hypertension Other Family history non-contributory Denies family history of Ovarian cancer Prostate cancer Crohn's disease Breast cancer Colorectal cancer Social History Preferred Language: Swedish Evp Strategy Required: No Beliefs That Will Affect Care: None marital status: Current Living Situation: Family current occupational status: previously employed Other Information That Helps Us Care for You: No Feels Safe at Home: Yes Safety Concerns: Feels Safe At This Time Smoking Status: Current some day smoker Tobacco Type: smokeless tobacco ; Do You Dip or Chew Tobacco: Yes ; Second Hand Exposure: No ; Tobacco Cessation Education Requested by Patient: No Hx Alcohol Use: Yes (Occasional ) Alcohol type: beer, wine and hard liquor Hx Substance Use: No caffeine: Yes Dental Care, Regularly: Yes Physical Activity Frequency: Does not Exercise Seatbelt Use: sometimes Sunscreen Use: Yes Review of Systems Review of Systems: A complete 10 point review of systems was reviewed with the patient with pertinent positives and negatives as per history of present illness. All else were negative. Physical Exam Physical Exam: VITAL SIGNS - Vital signs and nursing notes were reviewed. GENERAL - 53-year-old male appearing his stated age who is in no acute distress. Communicates well with provider and answers questions appropriately. HEAD - NC/AT. EYES - PERRL with EOMI bilaterally. Sclera anicteric. Palpebral conjunctiva pink and moist with no injection noted. EARS - No deformities of external structures noted on gross examination bilaterally. NOSE - Midline and without cyanosis. MOUTH/OROPHARYNX - Without perioral cyanosis. Buccal mucosa pink and moist and without leukoplakia. NECK - Neck with FROM. Supple to palpation. LUNGS - Chest wall symmetric without accessory muscle use, intercostals retractions, or central cyanosis. Normal vesicular breath sounds CTA B/L. No w heezes, rales, or rhonchi appreciated. CARDIAC - RRR with S1/S2. No murmur, rubs, or gallops appreciated. No reproducible tenderness to palpation appreciated over the anterior chest wall. ABDOMEN - Abdominal contour obese without pulsations or visible masses. BS normoactive all four quadrants. No tenderness, palpable masses, hepatosplenomegaly, or ascites noted. EXTREMITIES - No clubbing or peripheral cyanosis. No pretibial edema present. +3/5 radial and dorsalis pedis pulses palpated throughout. +5/5 strength noted in UE/LE bilaterally. NEUROLOGIC - Cranial nerves II through XII grossly intact. Sensory intact to light touch throughout. PSYCH - A&Ox3 and cooperates fully with examiner. Pt is very pleasant and interacts well with examiner. Results & Data Results & Data ([facility]) Vital Signs (Past 12 Hours) Vital Signs Temp Pulse Pulse Resp BP BP Pulse Ox 06/03/19 19:56 36.8 C 84 18 153/107 H 99 06/03/19 18:16 60 19 148/98 H 98 06/03/19 18:10 64 16 06/03/19 18:00 59 L 21 140/90 96 06/03/19 17:50 82 19 97 06/03/19 17:45 78 16 150/103 H 96 06/03/19 17:40 81 17 94 06/03/19 17:39 36.6 C 06/03/19 17:30 69 19 98 06/03/19 17:23 65 20 98 06/03/19 17:21 64 18 115/84 98 06/03/19 17:17 72 26 H 115/84 99 Coding Level of Care Code Critical Care 1st 30-74 mins Diagnoses Admitted to intensive care unit Z78.9 ST elevation myocardial infarction (STEMI) of inferolateral wall I21.19 S/P PTCA (percutaneous transluminal coronary angioplasty) Z98.61 S/P drug eluting coronary stent placement Z95.5 Chest pain R07.2 Chest pain type: precordial pain Diaphoresis R61 Acute VT I21.11 Involved coronary artery: right coronary artery Myocardial infarction type: ST elevation myocardial infarction Balance problem R26.89 Hyperlipidemia E78.5 Hyperlipidemia type: unspecified Depression F32.9 Acid reflux disease K21.9 Esophagitis presence: esophagitis presence not specified Peripheral vertigo H81.399 Time Spent (min) 35 (1) Chest pain Chest pain type: precordial pain Qualified Code(s): R07.2 - Precordial pain (2) Acute VT Involved coronary artery: right coronary artery Myocardial infarction type: ST elevation myocardial infarction Qualified Code(s): I21.11 - ST elevation (STEMI) myocardial infarction involving right coronary artery (3) Hyperlipidemia Hyperlipidemia type: unspecified Qualified Code(s): E78.5 - Hyperlipidemia, unspecified (4) Acid reflux disease Esophagitis presence: esophagitis presence not specified Qualified Code(s): K21.9 - Gastro-esophageal reflux disease without esophagitis
[2019-06-03] MEDS ORDERED: MECLIZINE HCL 25 MG TAB PO PRN (20:18)
--- NOTE | 2019-06-03 21:10 | History & Physical Report ---
Date of Service June 03, 2019 Assessment & Plan (1) ST elevation myocardial infarction (STEMI) of inferolateral wall: 53yo C male with HTN, HLP, tobacco use presenting with acute inferior- lateral STEMI s/p cardiac catheterization with successful placement of RUBÉN x 1 to mid-circumflex. Patient currently doing well, no CP -Admit to MICU -Trend troponin -Check 2D echo in the AM -Check Lipids and HgbAIC in AM -Continue ASA 81mg po q AM -Continue Brilinta -Atorvastatin 80mg po q daily -Metoprolol tartrate 25mg po BID -Losartan 25mg po daily (patient with allergy to Lisinopril) Present on Admission?: Yes (2) HTN (hypertension): Blood pressure mildly elevated at 142/114. Patient was previously on Amlodipine 10mg po daily -Metoprolol 25mg po BID -Losartan 25mg po q daily -Continue to monitor -DC Amlodipine for now Present on Admission?: Yes (3) Hyperlipidemia: Patient was previously on Atorvastatin 20mg po daily -Increase to Atorvastatin 80mg po daily -Lipid panel in AM Present on Admission?: Yes (4) Acid reflux disease: Chronic -Continue Protonix F/E/N - NSS @ 100mL/hr, monitor electrolytes and replete as needed, Heart Healthy diet as tolerated Ppx - Lovenox Code - Full Dispo - Admission to MICU Present on Admission?: Yes Admission and Anticipated Discharge Date Admission Date: June 03, 2019 Anticipated date of discharge: 06/04/19 History of Present Illness Chief Complaint: chest pain Primary Care Provider: Jon Jaimes MD Rolando Fowler is a pleasant 53yo C male with history of HTN, HLP, GERD and hearing loss presenting with STEMI. Patient developed severe pain in his back and left shoulder this afternoon around 16:30 after performing some work around his house. He subsequently developed diaphoresis, nausea and multiple episodes of non-bloody/non-bilious vomiting. EMS was called - initial EKG with ST elevations in II, III, aVF as well as V5 and V6 with reciprocal changes in V1 and V2. He was administered ASA 324mg chew and morphine in the field. Upon arrival to the ER patient had ongoing CP mostly in his back. A repeat EKG redemonstrated inferior ST elevations. Code heart was called and the patient was taken to the civil laboratory technician. Of note, he has a documented allergy to contrast dye therefore he was premedicated with Hydrocortisone, Benadryl and Pepcid prior to the procedure. Patient found to have acute 99% occlusion of the mid-circumflex. He had successful placemet of DEX x 1. Patient presently with no complaints. Mild discomfort continues in his back, 02/22, otherwise he feels well. Allergies Allergy/AdvReac Type Severity Reaction Status Date / Time Iodinated Contrast Media Allergy Intermediate ITCHY Verified 06/03/19 17:41 lisinopril AdvReac Cough Verified 06/03/19 17:41 Home Medications Home Medications Medication Instructions Recorded Confirmed Type meclizine 25 mg tablet 25 mg PO Q6H PRN #20 tab 09/12/18 06/03/19 History multivitamin 1 tab PO DAILY 09/12/18 06/03/19 History pantoprazole 40 mg tablet,delayed 40 mg PO DAILY #90 tab 10/10/18 06/03/19 Rx release cholecalciferol (vitamin D3) 25 2,000 units PO DAILY #90 tab 12/12/18 06/03/19 History mcg (1,000 unit) tablet atorvastatin 20 mg tablet 20 mg PO DAILY #90 tab 01/31/19 06/03/19 Rx clindamycin phosphate 1 % lotion 1 appln TOP DAILY #60 ml 04/02/19 06/03/19 Rx amlodipine 10 mg tablet 10 mg PO DAILY #90 tab 05/10/19 06/03/19 Rx aspirin 81 mg PO DAILY 06/03/19 06/03/19 History Past Med/Surg History Medical History (Updated 06/03/19 @ 21:08 by Angie Hartman DO) Acid reflux disease (Acute) Hearing loss (Inactive) HTN (hypertension) (Chronic) Hyperlipidemia (Acute) Surgical History H/O hernia repair (Inactive) History of hiatal hernia Anterior gastropexy History of sinus surgery History of umbilical hernia repair Laparoscopy repair S/P laparoscopy Diagnostic Family History Father Diabetes Hypertension Myocardial infarction Mother Hypertension Other Family history non-contributory Denies family history of Ovarian cancer Prostate cancer Crohn's disease Breast cancer Colorectal cancer Social History Preferred Language: [place] Rn Behavioral Health Required: No Beliefs That Will Affect Care: None marital status: Current Living Situation: Family current occupational status: previously employed Other Information That Helps Us Care for You: No Feels Safe at Home: Yes Safety Concerns: Feels Safe At This Time Smoking Status: Current some day smoker Tobacco Type: smokeless tobacco ; Do You Dip or Chew Tobacco: Yes ; Second Hand Exposure: No ; Tobacco Cessation Education Requested by Patient: No Hx Alcohol Use: Yes (Occasional ) Alcohol type: beer, wine and hard liquor Hx Substance Use: No caffeine: Yes Dental Care, Regularly: Yes Physical Activity Frequency: Does not Exercise Seatbelt Use: sometimes Sunscreen Use: Yes Review of Systems Review of Systems: All systems reviewed & are unremarkable except as noted in HPI & below Patient denies fevers, chills, cough, SOB. No recent travel or sick contacts Physical Exam Physical Exam: General: patient resting comfortably, NAD, non-toxic in appearance, AA&O x 4 Skin: warm, dry, intact, no rashes or lesions HEENT: NC/AT, PERRL, EOMI, anicteric sclera, conjunctiva without injection, external ear normal to inspection and nontender, nares patent, moist mucus membranes, dentition intact, no oropharyngeal lesions, neck supple, trachea midline, no LAD, no thyromegaly, no JVD Heart: +S1/S2, regular, no m/r/g Lungs: equal air entry bilaterally, no rales/rhonchi/wheezes Abd: +BS, soft, NT/ND, no masses/organomegaly/ascites Ext: warm, 2+ pulses in UE/LE bilaterally, no clubbing/cyanosis or edema, vascular compression band present wrist Neuro: nonfocal, patient AA&O x 4, speech intact, no facial droop, moving all extremities on command with equal strength 5/5 Results & Data Results & Data ([facility]) Vital Signs (Past 12 Hours) Vital Signs Temp Pulse Pulse Resp BP BP Pulse Ox 06/03/19 19:56 36.8 C 84 18 153/107 H 99 06/03/19 18:16 60 19 148/98 H 98 06/03/19 18:10 64 16 06/03/19 18:00 59 L 21 140/90 96 06/03/19 17:50 82 19 97 06/03/19 17:45 78 16 150/103 H 96 06/03/19 17:40 81 17 94 06/03/19 17:39 36.6 C 06/03/19 17:30 69 19 98 06/03/19 17:23 65 20 98 06/03/19 17:21 64 18 115/84 98 06/03/19 17:17 72 26 H 115/84 99 Laboratory Results Lab Results 06/03/19 06/03/19 06/03/19 Range/Units 17:15 17:15 17:15 WBC 9.87 (4.8-10.8) K/uL RBC 5.11 (4.7-6.1) M/uL Hgb 15.1 (14.0-18.0) g/dL POC Hgb (14.0-18.0) g/dl Hct 43.6 (42-52) % POC Hct (42-52) % MCV 85.3 (80-100) fL MCH 29.5 (25-34) pg MCHC 34.6 (32-36) g/dL RDW Std Deviation 42.6 (36.4-46.3) fL RDW Coeff of Josh 13.9 (11.5-14.5) % Plt Count 263 (130-400) K/uL MPV 10.0 (7.4-10.4) fL Immature Gran % (Auto) 0.4 % Neut % (Auto) 70.7 % Lymph % (Auto) 18.1 % Bracken % (Auto) 9.0 % Eos % (Auto) 1.4 % Baso % (Auto) 0.4 % Immature Gran # (Auto) 0.04 H (0.00-0.02) K/uL Neut # (Auto) 6.97 H (1.4-6.5) K/uL Lymph # (Auto) 1.79 (1.2-3.4) K/uL Bracken # (Auto) 0.89 H (0.11-0.59) K/uL Eos # (Auto) 0.14 (0-0.5) K/uL Baso # (Auto) 0.04 (0-0.2) K/uL PT 10.5 (9.0-12.0) Seconds INR 1.0 (0.9-1.1) APTT 20.7 L (21.0-31.0) Seconds PTT Ratio 0.7 Activ Coag Time Kaolin (94-140) SECONDS POC Sodium (135-144) mmol/L Sodium 140 (136-145) mmol/L POC Potassium (3.3-5.0) mmol/L Potassium 3.6 (3.5-5.1) mmol/L POC Chloride (101-112) mmol/L Chloride 107 (98-107) mmol/L Carbon Dioxide 27 (21-32) mmol/L POC Total CO2 (24-31) mEq/l Anion Gap 7.0 (3-11) POC Anion Gap (16-25) mmol/L POC BUN (7-18) mg/dl BUN 18 (7-18) mg/dl Creatinine 1.33 (0.6-1.4) mg/dl POC Creatinine (0.6-1.3) mg/dl Est Cr Clr Drug Dosing 86.6 ml/min Est GFR ( Amer) 70.2 Est GFR (Non-Af Amer) 60.6 BUN/Creatinine Ratio 13.5 (10-20) Glucose 128 H (70-99) mg/dl POC Glucose (other) (70-99) mg/dl Calcium 9.5 (8.5-10.1) mg/dl POC Ioniz Calcium Vika (1.12-1.32) mmol/l Total Bilirubin 0.4 (0.2-1) mg/dl AST 21 (15-37) U/L ALT 48 (12-78) U/L Alkaline Phosphatase 135 H (45-117) U/L POC Troponin I (0-0.045) ng/ml Troponin I < 0.015 (0-0.045) ng/ml Total Protein 7.7 (6.4-8.2) gm/dl Albumin 4.0 (3.4-5.0) gm/dl Globulin 3.7 (2.5-4.0) gm/dl Albumin/Globulin Ratio 1.1 (0.9-2) Lipase 93 (73-393) U/L 06/03/19 06/03/19 06/03/19 Range/Units 17:28 17:30 18:55 WBC (4.8-10.8) K/uL RBC (4.7-6.1) M/uL Hgb (14.0-18.0) g/dL POC Hgb 15.0 (14.0-18.0) g/dl Hct (42-52) % POC Hct 44 (42-52) % MCV (80-100) fL MCH (25-34) pg MCHC (32-36) g/dL RDW Std Deviation (36.4-46.3) fL RDW Coeff of Josh (11.5-14.5) % Plt Count (130-400) K/uL MPV (7.4-10.4) fL Immature Gran % (Auto) % Neut % (Auto) % Lymph % (Auto) % Bracken % (Auto) % Eos % (Auto) % Baso % (Auto) % Immature Gran # (Auto) (0.00-0.02) K/uL Neut # (Auto) (1.4-6.5) K/uL Lymph # (Auto) (1.2-3.4) K/uL Bracken # (Auto) (0.11-0.59) K/uL Eos # (Auto) (0-0.5) K/uL Baso # (Auto) (0-0.2) K/uL PT (9.0-12.0) Seconds INR (0.9-1.1) APTT (21.0-31.0) Seconds PTT Ratio Activ Coag Time Kaolin 208 H (94-140) SECONDS POC Sodium 140 (135-144) mmol/L Sodium (136-145) mmol/L POC Potassium 3.6 (3.3-5.0) mmol/L Potassium (3.5-5.1) mmol/L POC Chloride 105 (101-112) mmol/L Chloride (98-107) mmol/L Carbon Dioxide (21-32) mmol/L POC Total CO2 23 L (24-31) mEq/l Anion Gap (3-11) POC Anion Gap 18.0 (16-25) mmol/L POC BUN 17 (7-18) mg/dl BUN (7-18) mg/dl Creatinine (0.6-1.4) mg/dl POC Creatinine 1.2 (0.6-1.3) mg/dl Est Cr Clr Drug Dosing ml/min Est GFR ( Amer) Est GFR (Non-Af Amer) BUN/Creatinine Ratio (10-20) Glucose (70-99) mg/dl POC Glucose (other) 134 H (70-99) mg/dl Calcium (8.5-10.1) mg/dl POC Ioniz Calcium Vika 1.14 (1.12-1.32) mmol/l Total Bilirubin (0.2-1) mg/dl AST (15-37) U/L ALT (12-78) U/L Alkaline Phosphatase (45-117) U/L POC Troponin I < 0.03 (0-0.045) ng/ml Troponin I (0-0.045) ng/ml Total Protein (6.4-8.2) gm/dl Albumin (3.4-5.0) gm/dl Globulin (2.5-4.0) gm/dl Albumin/Globulin Ratio (0.9-2) Lipase (73-393) U/L 06/03/19 Range/Units 19:09 WBC (4.8-10.8) K/uL RBC (4.7-6.1) M/uL Hgb (14.0-18.0) g/dL POC Hgb (14.0-18.0) g/dl Hct (42-52) % POC Hct (42-52) % MCV (80-100) fL MCH (25-34) pg MCHC (32-36) g/dL RDW Std Deviation (36.4-46.3) fL RDW Coeff of Josh (11.5-14.5) % Plt Count (130-400) K/uL MPV (7.4-10.4) fL Immature Gran % (Auto) % Neut % (Auto) % Lymph % (Auto) % Bracken % (Auto) % Eos % (Auto) % Baso % (Auto) % Immature Gran # (Auto) (0.00-0.02) K/uL Neut # (Auto) (1.4-6.5) K/uL Lymph # (Auto) (1.2-3.4) K/uL Bracken # (Auto) (0.11-0.59) K/uL Eos # (Auto) (0-0.5) K/uL Baso # (Auto) (0-0.2) K/uL PT (9.0-12.0) Seconds INR (0.9-1.1) APTT (21.0-31.0) Seconds PTT Ratio Activ Coag Time Kaolin 263 H (94-140) SECONDS POC Sodium (135-144) mmol/L Sodium (136-145) mmol/L POC Potassium (3.3-5.0) mmol/L Potassium (3.5-5.1) mmol/L POC Chloride (101-112) mmol/L Chloride (98-107) mmol/L Carbon Dioxide (21-32) mmol/L POC Total CO2 (24-31) mEq/l Anion Gap (3-11) POC Anion Gap (16-25) mmol/L POC BUN (7-18) mg/dl BUN (7-18) mg/dl Creatinine (0.6-1.4) mg/dl POC Creatinine (0.6-1.3) mg/dl Est Cr Clr Drug Dosing ml/min Est GFR ( Amer) Est GFR (Non-Af Amer) BUN/Creatinine Ratio (10-20) Glucose (70-99) mg/dl POC Glucose (other) (70-99) mg/dl Calcium (8.5-10.1) mg/dl POC Ioniz Calcium Vika (1.12-1.32) mmol/l Total Bilirubin (0.2-1) mg/dl AST (15-37) U/L ALT (12-78) U/L Alkaline Phosphatase (45-117) U/L POC Troponin I (0-0.045) ng/ml Troponin I (0-0.045) ng/ml Total Protein (6.4-8.2) gm/dl Albumin (3.4-5.0) gm/dl Globulin (2.5-4.0) gm/dl Albumin/Globulin Ratio (0.9-2) Lipase (73-393) U/L Diagnostic Findings SINGLE VIEW CHEST CLINICAL HISTORY: Atypical chest pain. FINDINGS: An AP, portable, upright chest radiograph is compared to study dated 04/11/2017. Correlation is made with chest CT dated 08/03/2015. The examination is degraded by portable technique and patient rotation. The heart is enlarged. The pulmonary vasculature is noncongested. There is mild bibasilar atelectasis. No airspace consolidation or large pleural effusion is identified. No pneumothorax is seen. The bony thorax is grossly intact. IMPRESSION: Cardiomegaly with no active disease in the chest. ACT 112: Negative or not required by law. Electronically signed by: Bebeto Palmer M.D. 06/03/2019 5:48 PM Dictated: 06/03/191746 Transcribed: 06/03/191746 ECG Additional Comments: from 19:41, ST no longer elevated in inferior/lateral leads Code Status & VTE Plan Code Status FULL VTE Prophylaxis Plan VTE Prophylaxis will be ordered: Yes PG Care Time/CCT Total # of Minutes Spent Total Time Spent with Patient: Total time spent is greater than 50% in coordination of care (as documented) at patient's floor/unit and/or counseling patient: Coding Level of Care Code 77800 Initial Inpt Care Lvl [address] elevation myocardial infarction (STEMI) of inferolateral wall I21.19 HTN (hypertension) I10 Hypertension type: essential hypertension Hyperlipidemia E78.5 Hyperlipidemia type: unspecified Acid reflux disease K21.9 Esophagitis presence: esophagitis presence not specified (1) HTN (hypertension) Hypertension type: essential hypertension Qualified Code(s): I10 - Essential (primary) hypertension (2) Hyperlipidemia Hyperlipidemia type: unspecified Qualified Code(s): E78.5 - Hyperlipidemia, unspecified (3) Acid reflux disease Esophagitis presence: esophagitis presence not specified Qualified Code(s): K21.9 - Gastro-esophageal reflux disease without esophagitis
[2019-06-03] MEDS: METOPROLOL TARTRATE 25 MG TAB PO SCH (21:15)
--- NOTE | 2019-06-03 23:52 | Cardiac Catheterization ---
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 Cardiac Status Clinical evaluation leading to the procedure CAD Presenation: STEMI Anginal Classification: CCS IV Heart Failure: No Cardiogenic Shock within 24 Hours: No Cardiac Arrest within 24 Hours: No Imaging Studies Past 6 Months: No Stress Studies Past 6 Months: No Diagnostic Physicians Name: Angel Colunga MD Status: Emergency Closure Device Percutaneous Entry Location: Radial Closure Device: Radial Band Recommendations: PCI without planned CABG PCI Indication: Immediate PCI for STEMI First Noted: First EKG Lesion Segment Name: mid circumflex Culprit Artery: Yes Stenosis Prior to Rx (%): 99 Chronic Total Occlusion: No IVUS: No FFR: No Pre-Procedure JORGITO Flow: 2 Previously Treated Lesion: No Lesion Complexity: Non-High/Non-C Lesion Length (mm): 15 Thrombus Present: Yes Bifurcation Lesion: No Guidewire Across Lesion: Stenosis Post-Procedure (%): 0 Post-Procedure JORGITO Flow: 3 Devices(s) Deployed: Yes Yes Intraprocedure Events Significant Disection: No Perforation: No Cardiac Cath Procedure Full Procedure Date June 03, 2019 Pre-Procedure Diagnosis Pre-Procedure Diagnosis: STEMI AUC Score AUC Score: 9 Post-Procedure Diagnosis Post-Procedure Diagnosis: Severe CAD and Successful PCI Procedure(s) Performed Procedure(s) Performed: Coronary Angiography, Left Heart Cath and Drug Eluting Stent Commercial Attorney Angel Colunga MD Vial Gauger(s) Ivan Estimated Blood Loss Estimated Blood Loss: 20 Medication(s) Medication(s): Fentanyl, Heparin, Lidocaine 1%, Nicardipine and Versed Medication(s): Ticagrelor Summary of Findings Indication: STEMI/Heart Alert Access: 6 Fr slender right radial artery Catheters: Ikari 3.5 guide Findings: LM -large caliber vessel without significant disease LAD -large caliber vessel, mid segment luminal irregularities, distal vessel wraps around apex Circumflex -large caliber vessel, 99% acute mid circumflex stenosis with JORGITO II distal flow. 40 to 50% proximal stenosis in large OM 3. RCA -large caliber vessel, dominant, distal luminal irregularities LVEDP -11 -- PCI -- Antithrombotic therapy: Heparin, ticagrelor Procedure: Left main cannulated with Ikari 3.5 guide Mapping Analyst 50 wire passed across lesion into distal vessel Mid circumflex lesion predilated with 2.5 compliant balloon With the aid of a guide liner dilated lesion stented with 4.0 x 18 mm Sai drug- eluting stent Stent post-dilated with 4.0 noncompliant balloon Post procedure JORGITO 3 flow, stent well expanded with minimal residual stenosis and no apparent cardiac complications. Arterial Closure: TR band Summary: 1. Inferolateral STEMI/subtotal acute mid circumflex occlusion 2. No significant non-culprit vessel coronary disease 3. Normal intracardiac filling pressure 4. Successful PCI of mid circumflex with single drug-eluting stent (4.0 x 18 mm Sai). Recommendations: Admit to ICU for continued monitoring Loaded with ticagrelor 180 mg Continue dual-antiplatelet therapy for at least 1 year. Trend troponins until peak, Check Echo Uptitrate beta-andry/SARAH as BP allows High-dose statin Consult cardiac Rehab Hemodynamics Rest Ao:: 156/96/122 Final Ao: 152/96/119 LV: 149/11 Recommendations Recommendations: PCI without planned CABG Specimens Specimens: None Radiation Exposure (mGy) 3651 Contrast (mls) 195 Drains Drains: None Anesthesia Moderate Procedural Complication(s) None Disposition ICU I attest to the content of the Intraoperative Record and any orders documented therein. Any exceptions are noted below. [facility] Card Cath Procedure Codes Cardiac Catheterization Procedure 1: Cardiovascular Cath Procedures: 79899 Coronaries and LHC (+/-LV) Moderate Sedation Procedure 1: Sedation/Anesthesia: 47344 Mod Sedation by the same physician;Init15 Min Child Age 5 & Up Procedure 2: Sedation/Anesthesia: 07907 Mod Sedation by the same physician; Ea [id number] Minutes Stenting Procedure 1: Cardiovascular Stent Procedures: 37035 Perc transluminal revascularization of acute sub/total occl, aMI PG Care Time/CCT Total # of Minutes Spent Total Time Spent with Patient: Total time spent is greater than 50% in coordination of care (as documented) at patient's floor/unit and/or counseling patient:
[2019-06-04 04:22] LABS: Basophils # (auto) 0.02 K/uL (0-0.2); Basophils % (auto) 0.3 %; Eosinophils # (auto) 0.03 K/uL (0-0.5); Eosinophils % (auto) 0.4 %; Hematocrit (blood only) 40.5 % (42-52); Hemoglobin 14.2 g/dL (14.0-18.0); Immature Granulocytes # (auto) 0.03 K/uL (0.00-0.02); Immature Granulocytes % (auto) 0.4 %; Lymphocytes # (auto) 1.57 K/uL (1.2-3.4); Lymphocytes % (auto) 20.6 %; Mean Corpuscular Hemoglobin 30.1 pg (25-34); Mean Corpuscular Hgb Conc 35.1 g/dL (32-36); Mean Corpuscular Volume 85.8 fL (80-100); Mean Platelet Volume 9.1 fL (7.4-10.4); Monocytes # (auto) 0.73 K/uL (0.11-0.59); Monocytes % (auto) 9.6 %; Neutrophils # (auto) 5.24 K/uL (1.4-6.5); Neutrophils % (auto) 68.7 %; Platelet Count 214 K/uL (130-400); RDW Standard Deviation 43.8 fL (36.4-46.3); Red Blood Count 4.72 M/uL (4.7-6.1); White Blood Count 7.62 K/uL (4.8-10.8)
[2019-06-04 04:43] LABS: Magnesium 1.9 mg/dl (1.8-2.4)
[2019-06-04] MEDS: TICAGRELOR 90 MG TAB PO SCH ×3 (05:34→21:13)
[2019-06-04 06:11] LABS: Estimated Average Glucose 114 mg/dl; Hemoglobin A1C 5.6 % (4.5-5.6)
--- NOTE | 2019-06-04 08:26 | Critical Care Progress Note ---
Date of Service June 04, 2019 Assessment & Plan (1) S/P drug eluting coronary stent placement: No significant arrhythmias overnight. Echo pending. Repeat troponin pending. Will trend until plateau. Patient is doing well today. Continue typical post STEMI management including beta-andry, SARAH inhibitor, statin and dual antiplatelet therapy per cardiology's discretion. No significant ICU needs at present. He did note to me that he smokes cigars occasionally. I did discuss smoking cessation with him. Continue Lovenox for DVT prophylaxis. Likely transfer out of the ICU later today. (2) Hyperlipidemia: (3) ST elevation myocardial infarction (STEMI) of inferolateral wall: (4) Chest pain: Admission and Anticipated Discharge Date Admission Date: June 03, 2019 Subjective Patient is doing well this morning. Denies any chest pain, nausea, fevers, chills or shortness of breath. He is lying in bed. He notes that he had some leg edema several days prior to his myocardial infarction. Physical Exam Physical Exam: VITAL SIGNS - Vital signs and nursing notes were reviewed. GENERAL - 53-year-old male appearing his stated age who is in no acute distress. Communicates well with provider and answers questions appropriately. HEAD - NC/AT. EYES - PERRL with EOMI bilaterally. Sclera anicteric. Palpebral conjunctiva pink and moist with no injection noted. EARS - No deformities of external structures noted on gross examination bilaterally. NOSE - Midline and without cyanosis. MOUTH/OROPHARYNX - Without perioral cyanosis. Buccal mucosa pink and moist and without leukoplakia. NECK - Neck with FROM. Supple to palpation. LUNGS - Chest wall symmetric without accessory muscle use, intercostals retractions, or central cyanosis. Normal vesicular breath sounds CTA B/L. No wheezes, rales, or rhonchi appreciated. CARDIAC - RRR with S1/S2. No murmur, rubs, or gallops appreciated. No repr oducible tenderness to palpation appreciated over the anterior chest wall. ABDOMEN - Abdominal contour obese without pulsations or visible masses. BS normoactive all four quadrants. No tenderness, palpable masses, hepatosplenomegaly, or ascites noted. EXTREMITIES - No clubbing or peripheral cyanosis. No pretibial edema present. +3/5 radial and dorsalis pedis pulses palpated throughout. +5/5 strength noted in UE/LE bilaterally. NEUROLOGIC - Cranial nerves II through XII grossly intact. Sensory intact to light touch throughout. PSYCH - A&Ox3 and cooperates fully with examiner. Pt is very pleasant and interacts well with examiner. Results & Data Results & Data ([facility]) Vital Signs (Past 12 Hours) Vital Signs Pulse Resp BP Pulse Ox 06/04/19 06:00 62 19 94 06/04/19 05:55 62 18 136/94 94 06/04/19 05:43 69 15 131/88 96 06/04/19 05:00 60 18 93 06/04/19 04:09 60 17 113/73 94 06/04/19 04:00 63 17 95 06/04/19 03:54 61 17 115/75 94 06/04/19 03:39 60 17 123/84 95 06/04/19 03:30 61 17 93 06/04/19 03:24 64 15 127/91 95 06/04/19 03:09 65 15 137/92 93 06/04/19 03:00 65 18 95 06/04/19 02:54 72 14 129/87 93 06/04/19 02:39 64 16 116/78 93 06/04/19 02:24 66 17 108/74 93 06/04/19 02:09 64 16 114/72 94 06/04/19 02:00 62 18 94 06/04/19 01:54 62 16 113/73 94 06/04/19 01:39 62 18 111/77 95 06/04/19 01:24 62 19 124/91 94 06/04/19 01:09 62 17 123/86 94 06/04/19 01:00 65 19 92 06/04/19 00:54 65 15 110/85 96 06/04/19 00:39 66 16 119/76 95 06/04/19 00:30 66 17 93 06/04/19 00:24 65 17 103/70 94 06/04/19 00:09 66 18 115/83 94 06/04/19 00:00 67 17 93 06/03/19 23:54 68 16 112/75 94 06/03/19 23:39 68 18 101/72 94 06/03/19 23:30 84 17 94 06/03/19 23:24 75 20 114/77 94 06/03/19 23:09 75 15 133/91 94 06/03/19 23:00 70 14 93 06/03/19 22:54 68 16 127/90 95 06/03/19 22:45 75 18 96 06/03/19 22:39 77 18 136/93 96 06/03/19 22:30 78 18 94 06/03/19 22:24 76 18 132/94 96 06/03/19 22:15 83 15 95 06/03/19 22:09 76 20 132/93 95 06/03/19 22:00 87 19 95 06/03/19 21:54 85 20 135/95 96 06/03/19 21:45 88 16 97 06/03/19 21:39 83 15 151/111 H 96 06/03/19 21:30 93 H 18 97 06/03/19 21:24 88 19 146/106 H 96 06/03/19 21:18 86 23 141/103 H 97 06/03/19 21:15 88 21 96 06/03/19 21:00 93 H 21 96 06/03/19 20:45 84 14 96 06/03/19 20:39 80 14 142/114 H 96 06/03/19 20:30 80 13 96 06/03/19 20:24 85 14 154/110 H 97 Coding Level of Care Code 58423 Subseq Hosp Care Lvl 3 Diagnoses S/P drug eluting coronary stent placement Z95.5 Hyperlipidemia E78.5 Hyperlipidemia type: unspecified ST elevation myocardial infarction (STEMI) of inferolateral wall I21.19 Chest pain R07.2 Chest pain type: precordial pain (1) Hyperlipidemia Hyperlipidemia type: unspecified Qualified Code(s): E78.5 - Hyperlipidemia, unspecified (2) Chest pain Chest pain type: precordial pain Qualified Code(s): R07.2 - Precordial pain
[2019-06-04 08:28] LABS: BUN Creatinine Ratio 11.6 (10-20); Calcium 8.8 mg/dl (8.5-10.1); Creatinine Clr Calc Pharmacy 97.6 ml/min; Est GFR (African American) 81.2; Potassium 3.3 mmol/L (3.5-5.1)
[2019-06-04 08:36] LABS: Troponin I 16.9 ng/ml (0-0.045)
[2019-06-04] MEDS: PANTOprazole 40 MG TAB PO SCH (08:41)
[2019-06-04] MEDS: METOPROLOL TARTRATE 25 MG TAB PO SCH ×2 (08:41→21:13)
[2019-06-04] MEDS: MULTIVITAMIN TAB PO SCH (08:43)
[2019-06-04] MEDS: ASPIRIN 81 MG ECTAB PO SCH (08:44)
[2019-06-04] MEDS: ATORVASTATIN 40 MG TAB PO SCH (08:45)
[2019-06-04] MEDS: LOSARTAN POTASSIUM 25 MG TAB PO SCH (08:46)
[2019-06-04] MEDS: ENOXAPARIN INJ 40 MG/0.4 ML SYR SQ SCH (08:47)
[2019-06-04] MEDS: POTASSIUM CHLORIDE 10 MEQ TABCR PO SCH ×2 (10:10→12:09)
--- NOTE | 2019-06-04 10:59 | Cardiology Progress Note ---
Date of Service June 04, 2019 Assessment & Plan (1) ST elevation myocardial infarction (STEMI) of inferolateral wall: --Post primary PCI with single drug-eluting stent to mid circumflex 2. Preserved LV function with inferolateral wall motion abnormality 3. Hypertension 4. GERD 5. Chronic hearing loss/vestibular dysfunction Patient chest pain free. Moderate troponin elevation. LV function preserved. Hemodynamically and electrically stable. No signs of heart failure on exam. No access site complications Renal function stable Continue DAPT with aspirin, ticagrelor Continue current metoprolol, losartan Continue high intensity statin From a cardiac standpoint okay with transfer to telemetry today. Up walking with walker Discussed with patient that long-term his planned ENT surgery will likely have to be delayed in the setting of DAPT From a cardiac standpoint if remains stable potential discharge tomorrow Appreciate ICU and hospital medicine team care Admission and Anticipated Discharge Date Admission Date: June 03, 2019 Anticipated date of discharge: 06/04/19 Subjective Feeling well today. Denies chest pain. States breathing improved. Denies presyncope. Up around room, to chair without difficulty. Telemetryno arrhythmia. Sinus rhythm with heart rates primarily in the 70s Review of Systems Review of Systems: All systems reviewed & are unremarkable except as noted in HPI & below Physical Exam Physical Exam: General: Comfortable, no acute distress HEENT: Sclerae anicteric, mucous membranes moist Lungs: Clear to auscultation bilaterally, no rhonchi or wheezes Cardiac: Regular rate and rhythm, no murmurs. No JVD. Abdomen: Soft, nontender, nondistended, positive bowel sounds. Extremities: Warm, well perfused, no edema. Right radial artery access site with no ecchymosis, hematoma. Distal pulse and sensation intact. Skin: No rashes or lesions. Neuro: Nonfocal Psych: Alert orient x3, normal affect and mood Results & Data ([facility]) Vital Signs (Past 12 Hours) Vital Signs Pulse Resp BP Pulse Ox 06/04/19 06:00 62 19 94 06/04/19 05:55 62 18 136/94 94 06/04/19 05:43 69 15 131/88 96 06/04/19 05:00 60 18 93 06/04/19 04:09 60 17 113/73 94 06/04/19 04:00 63 17 95 06/04/19 03:54 61 17 115/75 94 06/04/19 03:39 60 17 123/84 95 06/04/19 03:30 61 17 93 06/04/19 03:24 64 15 127/91 95 06/04/19 03:09 65 15 137/92 93 06/04/19 03:00 65 18 95 06/04/19 02:54 72 14 129/87 93 06/04/19 02:39 64 16 116/78 93 06/04/19 02:24 66 17 108/74 93 06/04/19 02:09 64 16 114/72 94 06/04/19 02:00 62 18 94 06/04/19 01:54 62 16 113/73 94 06/04/19 01:39 62 18 111/77 95 06/04/19 01:24 62 19 124/91 94 06/04/19 01:09 62 17 123/86 94 06/04/19 01:00 65 19 92 06/04/19 00:54 65 15 110/85 96 06/04/19 00:39 66 16 119/76 95 06/04/19 00:30 66 17 93 06/04/19 00:24 65 17 103/70 94 06/04/19 00:09 66 18 115/83 94 06/04/19 00:00 67 17 93 06/03/19 23:54 68 16 112/75 94 06/03/19 23:39 68 18 101/72 94 06/03/19 23:30 84 17 94 06/03/19 23:24 75 20 114/77 94 06/03/19 23:09 75 15 133/91 94 06/03/19 23:00 70 14 93 06/03/19 22:54 68 16 127/90 95 PG Care Time/CCT Total # of Minutes Spent Total Time Spent with Patient: Total time spent is greater than 50% in coordination of care (as documented) at patient's floor/unit and/or counseling patient: Coding Level of Care Code 43911 Subseq Hosp Care Lvl [address] elevation myocardial infarction (STEMI) of inferolateral wall I21.19
--- NOTE | 2019-06-04 11:46 | Electrocardiogram Report ---
Test Reason : Blood Pressure : / mmHG Vent. Rate : 083 BPM Atrial Rate : 083 BPM P-R Int : 204 ms QRS Dur : 106 ms QT Int : 404 ms P-R-T Axes : 053 -14 024 degrees QTc Int : 474 ms Normal sinus rhythm Inferior infarct (cited on or before 11-APR-2017) Abnormal ECG When compared with ECG of 03-JUN-2019 17:26, (unconfirmed) ST no longer elevated in Inferior leads ST less depressed in Lateral leads T wave inversion no longer evident in Anterolateral leads Confirmed by Angel Spear ([id number]) on 06/04/2019 11:48:26 AM Also confirmed by Angel Spear ([id number]), assistant film editor Fay Shields ([id number]) on 06/05/2019 8:06:16 AM Referred By: REFERRED SELF Confirmed By:Dani Spear
--- NOTE | 2019-06-04 11:49 | Electrocardiogram Report ---
Test Reason : Blood Pressure : / mmHG Vent. Rate : 064 BPM Atrial Rate : 064 BPM P-R Int : 188 ms QRS Dur : 100 ms QT Int : 420 ms P-R-T Axes : 034 -07 096 degrees QTc Int : 433 ms Normal sinus rhythm Inferior-posterior infarct , possibly acute ACUTE OK / STEMI Consider right ventricular involvement in acute inferior infarct Abnormal ECG When compared with ECG of 25-APR-2017 06:59, Inferior-posterior infarct is now Present ST elevation now present in Inferior leads ST now depressed in Anterolateral leads T wave inversion now evident in Anterior leads Confirmed by Angel Spear ([id number]) on 06/04/2019 11:46:41 AM Also confirmed by Angel Spear ([id number]), medical editor Fay Shields ([id number]) on 06/05/2019 8:06:03 AM Also confirmed by Angel Spear ([id number]), medical editor Fay Shields ([id number]) on 06/05/2019 8:06:31 AM Referred By: REFERRED SELF Confirmed By:Dani Spear
--- NOTE | 2019-06-04 21:40 | Hospitalist Progress Note ---
Date of Service June 04, 2019 Assessment & Plan (1) ST elevation myocardial infarction (STEMI) of inferolateral wall: 53yo C male with HTN, HLP, tobacco use presenting with acute inferior- lateral STEMI s/p cardiac catheterization with successful placement of RUBÉN x 1 to mid-circumflex. Patient currently doing well, no CP -Admit to MICU -Patient improved after dug eluting stent placement to mid circumflex. -trop. moderately increased. -Continue DAPT with aspirin, ticagrelor Continue current metoprolol, losartan Continue high intensity statin (2) HTN (hypertension): Blood pressure mildly elevated at 142/114. Patient was previously on Amlodipine 10mg po daily -Metoprolol 25mg po BID -Losartan 25mg po q daily -Continue to monitor -DC Amlodipine for now (3) Hyperlipidemia: Patient was previously on Atorvastatin 20mg po daily -Increase to Atorvastatin 80mg po daily (4) Acid reflux disease: Chronic -Continue Protonix F/E/N - NSS @ 100mL/hr, monitor electrolytes and replete as needed, Heart Healthy diet as tolerated Ppx - Lovenox Code - Full Dispo - transfer to tele. Admission and Anticipated Discharge Date Admission Date: June 03, 2019 Subjective Patient reports feeling well. Patient reports no chest pain today. He has no new complaints at this time. Review of Systems Review of Systems: All systems reviewed & are unremarkable except as noted in HPI & below Physical Exam Physical Exam: General: patient resting comfortably, NAD, non-toxic in appearance, AA&O x 4 Skin: warm, dry, intact, no rashes or lesions HEENT: NC/AT, PERRL, EOMI, anicteric sclera, conjunctiva without injection, external ear normal to inspection and nontender, nares patent, moist mucus membranes, dentition intact, no oropharyngeal lesions, neck supple, trachea midline, no LAD, no thyromegaly, no JVD Heart: +S1/S2, regular, no m/r/g Lungs: equal air entry bilaterally, no rales/rhonchi/wheezes Abd: +BS, soft, NT/ND, no masses/organomegaly/ascites Ext: warm, 2+ pulses in UE/LE bilaterally, no clubbing/cyanosis or edema, vascular compression band present wrist Neuro: nonfocal, patient AA&O x 4, speech intact, no facial droop, moving all extremities on command with equal strength 5/5 Results & Data Results & Data ([facility]) Vital Signs (Past 12 Hours) Vital Signs Temp Pulse Resp BP Pulse Ox Pulse Ox 06/04/19 18:55 36.5 C 63 18 123/80 95 06/04/19 18:17 36.6 C 63 20 124/83 94 06/04/19 18:00 67 19 97 06/04/19 17:50 74 18 95 06/04/19 17:40 72 17 98 06/04/19 17:30 65 19 96 06/04/19 17:27 66 18 122/88 97 06/04/19 17:20 66 20 96 06/04/19 17:10 65 18 96 06/04/19 17:00 77 20 97 06/04/19 16:50 62 20 97 06/04/19 16:40 71 20 96 06/04/19 16:30 69 20 99 06/04/19 16:28 69 20 137/94 96 06/04/19 16:20 59 L 8 L 96 06/04/19 16:10 59 L 16 96 06/04/19 16:00 37 C 60 18 95 06/04/19 15:53 95 06/04/19 15:50 66 19 92 06/04/19 15:40 64 15 97 06/04/19 15:30 66 18 97 06/04/19 15:27 65 20 124/93 96 06/04/19 15:00 64 15 97 06/04/19 14:27 61 4 L 113/78 95 06/04/19 14:00 64 17 95 06/04/19 13:35 69 20 126/85 96 06/04/19 13:00 73 13 97 06/04/19 12:45 96 06/04/19 12:40 72 17 97 06/04/19 12:30 68 16 96 06/04/19 12:27 73 25 H 120/80 94 06/04/19 12:20 70 18 95 06/04/19 12:10 70 19 93 06/04/19 12:00 36.9 C 67 24 95 06/04/19 11:50 67 18 95 06/04/19 11:40 66 19 92 06/04/19 11:30 68 15 96 06/04/19 11:27 64 19 108/78 98 06/04/19 11:00 57 L 14 95 06/04/19 10:27 53 L 13 119/82 97 06/04/19 10:00 59 L 16 94 06/04/19 09:58 60 18 122/96 95 PG Care Time/CCT Total # of Minutes Spent Total Time Spent with Patient: Total time spent is greater than 50% in coordination of care (as documented) at patient's floor/unit and/or counseling patient: Coding Level of Care Code 43875 Subseq Hosp Care Lvl [address] elevation myocardial infarction (STEMI) of inferolateral wall I21.19 HTN (hypertension) I10 Hypertension type: essential hypertension Hyperlipidemia E78.5 Hyperlipidemia type: unspecified Acid reflux disease K21.9 Esophagitis presence: esophagitis presence not specified Time Spent (min) 35 (1) Hyperlipidemia Hyperlipidemia type: unspecified Qualified Code(s): E78.5 - Hyperlipidemia, unspecified (2) Acid reflux disease Esophagitis presence: esophagitis presence not specified Qualified Code(s): K21.9 - Gastro-esophageal reflux disease without esophagitis (3) HTN (hypertension) Hypertension type: essential hypertension Qualified Code(s): I10 - Essential (primary) hypertension
[2019-06-05 07:52] LABS: BUN Creatinine Ratio 13.3 (10-20); Calcium 8.9 mg/dl (8.5-10.1); Creatinine Clr Calc Pharmacy 112.8 ml/min; Est GFR (African American) 104.2; Est GFR (Non-African American) 89.9; Potassium 3.9 mmol/L (3.5-5.1)
[2019-06-05] MEDS: METOPROLOL TARTRATE 25 MG TAB PO SCH (08:04)
[2019-06-05] MEDS: TICAGRELOR 90 MG TAB PO SCH (08:04)
[2019-06-05] MEDS: LOSARTAN POTASSIUM 25 MG TAB PO SCH (08:05)
[2019-06-05] MEDS: PANTOprazole 40 MG TAB PO SCH (08:05)
[2019-06-05] MEDS: ENOXAPARIN INJ 40 MG/0.4 ML SYR SQ SCH (08:05)
[2019-06-05] MEDS: MULTIVITAMIN TAB PO SCH (08:05)
[2019-06-05] MEDS: ASPIRIN 81 MG ECTAB PO SCH (08:05)
[2019-06-05] MEDS: ATORVASTATIN 40 MG TAB PO SCH (08:05)
--- NOTE | 2019-06-06 11:46 | XCELERA ---
[id number] \\[email or web address]\[email or web address]\[id number]
--- NOTE | 2019-06-11 07:33 | Discharge Summary ---
Date of Service June 05, 2019 Admission HPI Per Admitting Provider Rolando Fowler is a pleasant 53yo C male with history of HTN, HLP, GERD and hearing loss presenting with STEMI. Patient developed severe pain in his back and left shoulder this afternoon around 16:30 after performing some work around his house. He subsequently developed diaphoresis, nausea and multiple episodes of non-bloody/non-bilious vomiting. EMS was called - initial EKG with ST elevations in II, III, aVF as well as V5 and V6 with reciprocal changes in V1 and V2. He was administered ASA 324mg chew and morphine in the field. Upon arrival to the ER patient had ongoing CP mostly in his back. A repeat EKG redemonstrated inferior ST elevations. 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 Of note, he has a documented allergy to contrast dye therefore he was premedicated with Hydrocortisone, Benadryl and Pepcid prior to the procedure. Patient found to have acute 99% occlusion of the mid-circumflex. He had successful placemet of DEX x 1. Patient presently with no complaints. Mild discomfort continues in his back, 02/22, otherwise he feels well. Principal Diagnosis STEMI Discharge Exam General: patient resting comfortably, NAD, non-toxic in appearance, AA&O x 4 Skin: warm, dry, intact, no rashes or lesions HEENT: NC/AT, PERRL, EOMI, anicteric sclera, conjunctiva without injection, external ear normal to inspection and nontender, nares patent, moist mucus membranes, dentition intact, no oropharyngeal lesions, neck supple, trachea midline, no LAD, no thyromegaly, no JVD Heart: +S1/S2, regular, no m/r/g Lungs: equal air entry bilaterally, no rales/rhonchi/wheezes Abd: +BS, soft, NT/ND, no masses/organomegaly/ascites Ext: warm, 2+ pulses in UE/LE bilaterally, no clubbing/cyanosis or edema, vascular compression band present wrist Neuro: nonfocal, patient AA&O x 4, speech intact, no facial droop, moving all extremities on command with equal strength 5/5 Discharge Data Allergies Allergy/AdvReac Type Severity Reaction Status Date / Time Iodinated Contrast Media Allergy Intermediate ITCHY Verified 06/03/19 17:41 lisinopril AdvReac Cough Verified 06/03/19 17:41 Consultations 06/03/19 19:34 Consult Case Management - Discharge Planning Routine Consult Materials Director Routine Procedures Performed Operation Date: 06/03/19 17:15 Actual Procedures p Aspiration/PCI w/RUBÉN for Stemi - Rangel Colunga MD s Cineradiography w/Routine Exam - Rangel Colunga MD s Cath, Left with Cors and Vent - Rangel Colunga MD Ordered Studies 06/03/19 17:12 CL Cath Imgs for PACS use only Stat Hospital Course (1) ST elevation myocardial infarction (STEMI) of inferolateral wall: 53yo C male with HTN, HLP, tobacco use presenting with acute inferior- lateral STEMI s/p cardiac catheterization with successful placement of RUBÉN x 1 to mid-circumflex. Patient currently doing well, no CP -Admit to MICU/ transferred to tele. -Patient improved after dug eluting stent placement to mid circumflex. -trop. moderately increased. -Continue DAPT with aspirin, ticagrelor Continue current metoprolol, losartan Continue high intensity statin - will followup with cardio as an outpatient. (2) HTN (hypertension): Blood pressure mildly elevated at 142/114. Patient was previously on Amlodipine 10mg po daily -Metoprolol 25mg po BID -Losartan 25mg po q daily -Continue to monitor -DC Amlodipine for now (3) Hyperlipidemia: Patient was previously on Atorvastatin 20mg po daily -Increase to Atorvastatin 80mg po daily (4) Acid reflux disease: Chronic -Continue Protonix F/E/N - NSS @ 100mL/hr, monitor electrolytes and replete as needed, Heart Healthy diet as tolerated Ppx - Lovenox Code - Full Total Time Total Time Spent Total Time Spent (In Minutes): 32 Total Time Includes: Examination of the Patient, Discharge Planning and Medication Reconciliation Discharge Plan Discharge Items Patient Disposition: Home - Self-Care Reason For Visit: STEMI Discharge Diagnosis: STEMI Activity: Resume your previous activity Non-emergency contact: Primary Care Provider Call non-emergency contact if: you have any medication questions Follow-up/Referrals: Jon Jaimes MD [Primary Care Provider] - Diet: Low Sodium (2gm) Addtl Attending Provider Instructions: Home Care: * Take your medications exactly as directed. Don't skip doses. * Remember that recovery after a heart attack takes time. Plan to rest for at lease 4-8 weeks while you recover. Then return to normal activity when your doctor says it's okay. * Ask your doctor about joining a heart rehabilitation program. * Tell your doctor if you are feeling depressed. Feelings of sadness are common after a heart attack, but it is important that you speak to someone if you are feeling overwhelmed by these feelings. * If you are having chest pain, call 911 for an ambulance. Do NOT drive yourself to the hospital. * Ask your family members to learn CPR. * Learn to take your own blood pressure and pulse. Keep a record of your results. Ask your doctor when you should seek emergency medical attention. He or she will tell you which blood pressure reading is dangerous. Lifestyle Changes: * Maintain a healthy weight. Get help to lose any extra pounds. * Cut back on salt. * Limit canned, dried, packaged, and fast foods. * Don't add salt to your food. * Season foods with herbs instead of salt when you cook. * Break the smoking habit. Enroll in a stop-smoking program to improve your chances of success. * Limit fatty foods. * Ask your doctor about having your lipid levels checked regularly. * Build up your activity according to your doctor's recommendation. * Ask your doctor when it's okay to resume sexual activity. * Tell your doctor about any erectile dysfunction (ED) medication you are taking. Some ED medications are not safe if you take certain heart medications. * Try to manage stress. Follow Up: It is important for you to keep your follow up appointments with your medical provider. Pending Studies at Discharge: No Stand-Alone Forms: My [facility], Smoking Cessation Medications and DC Order Prescriptions: New atorvastatin 40 mg Tablet 80 mg PO QAM Qty: 60 RF: 2 losartan 25 mg Tablet 25 mg PO QAM Qty: 30 RF: 2 Brilinta 90 mg Tablet 90 mg PO BID Qty: 60 RF: 2 metoprolol succinate [Toprol XL] 50 mg tablet extended release 24 hr 50 mg PO PM Qty: 30 RF: 2 Continued pantoprazole 40 mg tablet,delayed release (DR/EC) 40 mg PO DAILY Qty: 90 RF: 1 clindamycin phosphate 1 % lotion 1 appln TOP DAILY Qty: 60 RF: 2 meclizine 25 mg tablet 25 mg PO Q6H PRN (Reason: dizziness) Qty: 20 RF: 0 multivitamin tablet 1 tab PO DAILY RF: 0 cholecalciferol (vitamin D3) 25 mcg (1,000 unit) tablet 2,000 units PO DAILY Qty: 90 RF: 0 aspirin 81 mg Tablet,Delayed Release (Dr/Ec) 81 mg PO DAILY RF: 0 Discontinued atorvastatin 20 mg tablet 20 mg PO DAILY Qty: 90 RF: 1 amlodipine 10 mg tablet 10 mg PO DAILY Qty: 90 RF: 1 Discharge Orders: Discharge Order (Routine); Ordered 06/05/19 Ordered By: Cayden Whitmore Admission Data Admit Date/Time: 06/03/19 19:34 Attending Provider: Cayden Whitmore Admit Provider: Rangel Colunga Primary Care Provider: Jon Jaimes Other Providers: Bryan Crump Other Interventions: Discharge Summary Assessment (RN) Last Done: 06/05/19 12:18 DC Date/Time DO NOT enter until pt leaves facility: 06/05/19 12:50 Coding Level of Care Code D/C Day Management >[address] elevation myocardial infarction (STEMI) of inferolateral wall I21.19 HTN (hypertension) I10 Hypertension type: essential hypertension Hyperlipidemia E78.5 Hyperlipidemia type: unspecified Acid reflux disease K21.9 Esophagitis presence: esophagitis presence not specified
== END 2019-06-05 12:50 | disposition home or self-care (01) | DRG 247 ==
LOC: ED 17:04 → CC 18:21 → SUATTDRO 19:34 → 1E 19:34 → 2S 06-04 18:11